=== PATIENT | male | born 1970 | race Caucasian/White ===

== ENCOUNTER → 2017-08-25 12:34 | Outpatient (CLI) | payer OTHER, SELFPAY ==
--- NOTE | 2017-08-25 | DI.CT.S_ITS ---
PROCEDURE: CT CHEST WO CON INDICATIONS: PERSONAL HISTORY OF MALIGNANT NEOPLASM OF TESTIS TECHNIQUE: Noncontrast 5 mm thick sections acquired from the pulmonary apices to the posterior costophrenic angles. 7 mm thick coronal and sagittal MIP reformats were then acquired. For radiation dose reduction, the following was used: automated exposure control, adjustment of mA and/or kV according to patient size. COMPARISON: [facility], CT, THORAX WITHOUT CONTRAST, 02/12/2017, 12:41. FINDINGS: Image quality: Excellent. Lungs and pleura: No acute consolidation. There is bibasilar scattered atelectasis. No pleural effusions or pneumothorax. Central and peripheral airways are patent and normal in caliber. Mediastinum: Heart size is normal. No pericardial effusion. No mediastinal adenopathy by size criteria. Thoracic aorta and central pulmonary arteries are normal in size. Esophagus is normal in caliber. No hiatal hernia. Bones and chest wall: No suspicious bony lesions. No vertebral body compression fractures. No axillary or supraclavicular adenopathy by size criteria. Thyroid gland negative. Abdomen: Visualized upper abdominal solid organs and bowel loops appear normal in the absence of contrast. IMPRESSION: No evidence of metastatic disease. Dictated by: Harsh Brice M.D. on 08/25/2017 at 14:03 Approved by: Harsh Brice M.D. on 08/25/2017 at 14:14
--- NOTE | 2017-08-25 | DI.MRI.S_ITS ---
PROCEDURE: MR ABDOME PELVIS WWO CON INDICATIONS: PERSONAL HISTORY OF MALIGNANT NEOPLASM OF TESTIS TECHNIQUE: Coronal HASTE, axial 2D FLASH in- and [id number]; axial breath-hold T2 FSE; dynamic axial VIBE during IV gadolinium administration; postgadolinium coronal VIBE or 2D FLASH with fat saturation from the hepatic dome to the iliac crests. COMPARISON: [facility], MR, ABDOMEN & PELVIS WWO CONTRAST, 10/30/2015, 15:24. [facility], MR, ABDOMEN & PELVIS WWO CONTRAST, 07/29/2016, 8:36. [facility], CT, CT CHEST WO CON, 08/25/2017, 12:53. [facility], MR, ABDOMEN & PELVIS WWO CONTRAST, 02/12/2017, 13:01. FINDINGS: Image quality: Excellent. Lung bases: The basal pleural effusions. Heart is normal in size. Solid organs: Liver demonstrates no focal hepatic lesions. The gallbladder is within normal limits without gallstones. No biliary ductal dilatation. The spleen is normal in size. The pancreas is normal in morphology without pancreatic duct dilatation or discrete mass lesions. No adrenal nodules. The kidneys demonstrate no hydronephrosis. Nodes and vessels: There are small foci of magnetic susceptibility artifact redemonstrated in the retroperitoneum consistent with prior lymph node dissection. A small ovoid fluid collection in the retroperitoneum between the aorta and inferior vena cava is stable in appearance compared to the prior studies measuring up to 1.3 x 0.7 cm and likely represents a small lymphocele. No mesenteric or retroperitoneal lymphadenopathy by size criteria. The aorta and inferior vena cava are normal in caliber. Bowel and peritoneum: Small and large bowel loops appear normal in caliber. No intraperitoneal free fluid. Pelvis: No pelvic lymphadenopathy by size criteria. The bladder demonstrates normal wall thickness. No pelvic free fluid. Bones and soft tissues: Visualized osseous structures demonstrate no suspicious focal lesions. IMPRESSION: 1. No evidence of new recurrent or metastatic disease. 2. Small retroperitoneal fluid collection likely representing a lymphocele is stable in appearance. Dictated by: Ezekiel Rice M.D. on 08/26/2017 at 9:44 Approved by: Ezekiel Rice M.D. on 08/26/2017 at 9:59
== END ==
PROVIDERS: PCP Family Medicine; Visit Provider Family Medicine
DX: Z85.47 Personal history of malignant neoplasm of testis (principal)
CPT/HCPCS: 71250; 72197

== ENCOUNTER 2017-10-17 13:13 | Emergency (ER) | payer OTHER, SELFPAY ==
[2017-10-17 13:26] VITALS: BP 137/86; PULSE 96; RESP 15; TEMP 36.2; O2SAT 98; BMI 28.1
[2017-10-17 15:07] VITALS: BP 117/75; PULSE 81; RESP 14; O2SAT 95
--- NOTE | 2017-10-17 15:15 | DI.US.S_ITS ---
PROCEDURE: US PERIPH VENOUS LOW EXTREM LT INDICATIONS: pain hx of pe and cancer TECHNIQUE: Real-time imaging, as well as color and pulse Doppler interrogation, were performed of the lower extremity deep veins from the inguinal ligament to the popliteal fossa. COMPARISON: None. FINDINGS: The deep veins are normally compressible, and free of intraluminal thrombus. Color and pulse Doppler demonstrate normal phasic intraluminal flow. There is normal augmentation response to distal compression maneuver. IMPRESSION: No evidence of left lower extremity deep vein thrombosis. Dictated by: Lemuel Valdez M.D. on 10/17/2017 at 16:08 Approved by: Lemuel Valdez M.D. on 10/17/2017 at 16:26
--- NOTE | 2017-10-17 15:21 | ED_ITS ---
HPI - Extremity Problem General Chief complaint: Extremity Problem,Nontraumatic Stated complaint: DULL ACHE IN LEFT CALF RADIATING INTO HAMSTRING Time Seen by Provider: 10/17/17 15:06 Source: patient Mode of arrival: ambulatory Limitations: no limitations History of Present Illness HPI Narrative: Patient is a 47-year-old male who presents with left calf pain. He has not noted any swelling it does hurt when he walks. He has been relatively active. He does have a history of pulmonary embolism and cancer. 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 No recent travel, no immobilization, no chest pain no shortness of breath. MD Complaint: extremity pain Onset (ago): week(s) (1) Location: left Related Data Home Medications Medication Instructions Recorded Confirmed doxycycline hyclate 50 mg PO DAILY 10/17/17 10/17/17 Previous Rx's Medication Instructions Recorded metronidazole [Metrogel Vaginal] 1 appl VAGINAL HS #70 gm 06/11/17 Allergies Allergy/AdvReac Type Severity Reaction Status Date / Time ampicillin [AMPICILLIN] Allergy Mild Verified 10/17/17 13:26 Penicillins [PENICILLINS] Allergy Mild Verified 10/17/17 13:26 Review of Systems Review of Systems GENERAL: Denies chills,fever HEENT: Denies throat pain RESPIRATORY: Denies dyspnea, cough, wheezing CARDIOVASCULAR: Denies chest pain, palpitations GASTROINTESTINAL: Denies nausea, vomiting MUSCULOSKELETAL: Denies extremity pain, injury SKIN: No rash, no laceration, no pruritus NEUROLOGIC: Denies weakness, dizziness, headache, numbness 8 point review of systems is negative except for those stated above and HPI All systems reviewed & are unremarkable except as noted in HPI and below PFSH Surgical History History of vasectomy Family History Father Age: 75 Mental health problem Mother Age: 74 Hypertension Mental health problem Exam Initial Vital Signs Initial Vital Signs: Vital Signs Temperature 97.2 F L 10/17/17 13:26 Pulse Rate 96 H 10/17/17 13:26 Respiratory Rate 15 10/17/17 13:26 Blood Pressure 137/86 H 10/17/17 13:26 Pulse Oximetry 98 10/17/17 13:26 GENERAL: Well-appearing, well-nourished and in no acute distress. HEENT: Head atraumatic,EOMI, pupils reactive, face symmetric, moist mucous membranes CARDIOVASCULAR: Regular rate and rhythm without murmurs, rubs or gallops. RESPIRATORY: Breath sounds equal bilaterally, no wheezes rales or rhonchi. ABDOMEN: Soft, nontender. Normoactive bowel sounds all 4 quadrants. No guarding or rebound. EXTREMITIES: Normal range of motion, no clubbing or edema. Neurovascularly intact. Mild tenderness to right calf no guarding no rebound no significant swelling no erythema pedal pulse intact NEUROLOGICAL: Alert and oriented x4.Normal gait and speech. SKIN: Warm, dry, no laceration, no petechiae, no rashes or lesions. Course Orders Ordered: ED Orders 10/17/17 15:15 US perip venous low extrem lt Stat Vital Signs - 8 hr 10/17/17 13:26 10/17/17 15:07 Temperature 97.2 F L Pulse Rate 96 H 81 Respiratory Rate 15 14 Blood Pressure 137/86 H Blood Pressure [Right Arm] 117/75 Pulse Oximetry 98 95 MDM - Extremity (Nontraumatic) Imaging Data Venous US: Radiologist's impression: PROCEDURE: US [facility] VENOUS LOW EXTREM LT INDICATIONS: pain hx of pe and cancer TECHNIQUE: Real-time imaging, as well as color and pulse Doppler interrogation, were performed of the lower extremity deep veins from the inguinal ligament to the popliteal fossa. COMPARISON: None. FINDINGS: The deep veins are normally compressible, and free of intraluminal thrombus. Color and pulse Doppler demonstrate normal phasic intraluminal flow. There is normal augmentation response to distal compression maneuver. IMPRESSION: No evidence of left lower extremity deep vein thrombosis. Dictated by: Lemuel Valdez M.D. on 10/17/2017 at 16:08 Discharge Plan Departure Patient Disposition: Home, Self-Care Clinical Impression: Strain of calf muscle Discharge Date/Time: 10/17/17 17:03 Interventions: ED Discharge Assessment Last Done: 10/17/17 17:11 Instructions: Calf Muscle Strain Activity Restrictions/Additional Instructions: *You have been diagnosed with left calf strain *Continue to take medications as directed *Follow up with your primary care provider in 2-3 days *Return to ER if you should have any new, worsening or concerning symptoms Prescriptions: No Action metronidazole [Metrogel Vaginal] 0.75 % gel 1 appl Vaginal HS Qty: 70 RF: 0 doxycycline hyclate 50 mg capsule 50 mg PO DAILY RF: 0 Referrals: Cousins,Shaina, MD [Primary Care Provider] -
== END 2017-10-17 17:03 | disposition home or self-care (01) ==
PROVIDERS: Emergency Provider Emergency Medicine; PCP Family Medicine
DX: S86.912A Strain of unspecified muscle(s) and tendon(s) at lower leg level, left leg, initial encounter (principal)
CPT/HCPCS: 93971; 99282; 99284

== ENCOUNTER → 2018-01-13 15:00 | Outpatient (CLI) | payer OTHER, SELFPAY | PROVIDERS: PCP Family Medicine | DX: Z23 Encounter for immunization (principal) | CPT/HCPCS: 90471; 90686 ==

== ENCOUNTER → 2018-07-07 15:22 | Outpatient (CLI) | payer OTHER, SELFPAY | PROVIDERS: Visit Provider Physician Assistant | DX: R68.89 Other general symptoms and signs (principal) | CPT/HCPCS: 87400 ==

== ENCOUNTER → 2018-07-13 11:49 | Outpatient (CLI) | payer OTHER, SELFPAY ==
--- NOTE | 2018-07-13 11:52 | DI.RAD.S_ITS ---
PROCEDURE: XR CHEST 2V INDICATIONS: cough TECHNIQUE: 2 views of the chest were acquired. COMPARISON: [facility], , CHEST 1 VIEW, 01/10/2016, 9:57. FINDINGS: Surgical changes and devices: None. Lungs and pleura: Lungs are clear. No pleural effusions or pneumothorax. Mediastinum: Mediastinal contours are normal. Heart size is normal. Bones and chest wall: No suspicious bony abnormalities. Soft tissues appear unremarkable. IMPRESSION: Stable chest. No acute cardiopulmonary process is evident. Dictated by: Lemuel Valdez M.D. on 07/13/2018 at 11:02 Approved by: Lemuel Valdez M.D. on 07/13/2018 at 11:03
== END ==
PROVIDERS: Visit Provider Physician Assistant
DX: R05 Cough (principal)
CPT/HCPCS: 71046

== ENCOUNTER → 2018-09-08 09:02 | Outpatient (CLI) | payer OTHER, SELFPAY ==
[2018-09-08 10:45] LABS: Alanine Aminotransferase 26 IU/L (21-72); Albumin 4.6 g/dL (3.5-5.0); Albumin Globulin Ratio 1.4 (1.0-2.8); Alkaline Phosphatase 64 U/L (38-126); Aspartate Aminotransferase 26 IU/L (17-59); Bilirubin Total 0.8 mg/dL (0.2-1.3); Blood Urea Nitrogen 20 mg/dL (9-20); Calcium 9.6 mg/dL (8.4-10.2); Carbon Dioxide 27 mmol/L (22-32); Chloride 103 mmol/L (98-107); Cholesterol 298 mg/dL (140-199); Estimated Glomerular Filt Rate > 60.0 mL/min (>60); Globulin 3.2 g/dL (1.7-4.1); Glucose 100 mg/dL (70-100); HDL Cholesterol 35 mg/dL (40-60); HEMOLYSIS 22 (0-50); Sodium 140 mmol/L (137-145); Total Protein 7.8 g/dL (6.3-8.2)
[2018-09-08 10:54] LABS: Triglycerides 770 mg/dL (35-150)
[2018-09-08 11:00] LABS: Vitamin D 25 Hydroxy (D3) 17.6 ng/mL (30.0-100.0)
[2018-09-08 11:14] LABS: TSH w/ Reflex to FT4 2.01 uIU/mL (0.47-4.68)
[2018-09-12 00:10] LABS: Testosterone Free 53.2 pg/mL (35.0-155.0); Testosterone Total 405 ng/dL (250-1100)
== END ==
PROVIDERS: Visit Provider Student in an Organized Health Care Education/Training Program
DX: C62.90 Malignant neoplasm of unspecified testis, unspecified whether descended or undescended (principal); N20.0 Calculus of kidney; N52.9 Male erectile dysfunction, unspecified; E78.2 Mixed hyperlipidemia; E55.9 Vitamin D deficiency, unspecified; Z92.21 Personal history of antineoplastic chemotherapy
CPT/HCPCS: 36415; 80053; 80061; 82306; 84402; 84403; 84443

== ENCOUNTER → 2018-09-18 10:34 | Outpatient (CLI) | payer OTHER, SELFPAY ==
--- NOTE | 2018-09-18 10:39 | DI.MRI.S_ITS ---
PROCEDURE: MR ABDOME PELVIS WWO CON INDICATIONS: routine surveillance of testicular ca metastasis TECHNIQUE: Coronal HASTE, axial 2D FLASH in- and [id number]; axial breath-hold T2 FSE; dynamic axial VIBE during IV gadolinium administration; postgadolinium coronal VIBE or 2D FLASH with fat saturation from the hepatic dome to the iliac crests. COMPARISON: [facility], MR, MR ABDOMEN PELVIS WWO CON, 08/25/2017, 13:31. [facility], MR, ABDOMEN & PELVIS WWO CONTRAST, 02/12/2017, 13:01. FINDINGS: Image quality: Excellent. Lung bases: Clear. Solid organs: No evidence of metastatic disease, no inflammation seen. Nodes and vessels: Normal in size, no evidence of retroperitoneal or mesenteric adenopathy. Bowel and peritoneum: Normal for age. Pelvis: No sign of adenopathy or osseous metastatic disease. Bones and soft tissues: Normal. IMPRESSION: No sign of metastatic disease to the visualized chest, abdomen and pelvis. Dictated by: Thony Jackson M.D. on 09/18/2018 at 15:32 Approved by: Thony Jackson M.D. on 09/18/2018 at 15:36
--- NOTE | 2018-09-18 11:04 | DI.CT.S_ITS ---
PROCEDURE: CT CHEST WO CON INDICATIONS: Routine surveillance of chest metastasis TECHNIQUE: Noncontrast 5 mm thick sections acquired from the pulmonary apices to the posterior costophrenic angles. 7 mm thick coronal and sagittal MIP reformats were then acquired. For radiation dose reduction, the following was used: automated exposure control, adjustment of mA and/or kV according to patient size. COMPARISON: [facility], CT, THORAX WITHOUT CONTRAST, 02/12/2017, 12:41. [facility], CT, THORAX WITHOUT CONTRAST, 07/29/2016, 8:11. [facility], CT, THORAX WITHOUT CONTRAST, 10/30/2015, 14:42. [facility], CT, CT CHEST WO CON, 08/25/2017, 12:53. FINDINGS: Image quality: Excellent. Lungs and pleura: No acute air space opacities. No metastatic disease is found. There are several small foci of alveolar scarring previously present, stable over time, and no evidence of acute inflammatory process. No pleural effusions or pneumothorax. Central and peripheral airways are patent and normal in caliber. Mediastinum: Heart size is normal. No pericardial effusion. No mediastinal adenopathy by size criteria. Thoracic aorta and central pulmonary arteries are normal in size. Esophagus is normal in caliber. No hiatal hernia. Bones and chest wall: No suspicious bony lesions. No vertebral body compression fractures. No axillary or supraclavicular adenopathy by size criteria. Thyroid gland appears normal where well visualized by this noncontrast technique study.. Abdomen: Visualized upper abdominal solid organs and bowel loops appear normal in the absence of contrast. IMPRESSION: No evidence of metastatic disease. Minimal stable lung parenchymal scarring in each lung base. No adenopathy found. Dictated by: Thony Jackson M.D. on 09/18/2018 at 12:40 Approved by: Thony Jackson M.D. on 09/18/2018 at 12:43
== END ==
PROVIDERS: PCP Student in an Organized Health Care Education/Training Program; Visit Provider Student in an Organized Health Care Education/Training Program
DX: C62.90 Malignant neoplasm of unspecified testis, unspecified whether descended or undescended (principal)
CPT/HCPCS: 71250; 72197; A9579

== ENCOUNTER → 2018-09-22 15:48 | Outpatient (CLI) | payer OTHER, SELFPAY ==
--- NOTE | 2018-09-22 15:49 | DI.ECHO.S_ITS ---
[place] [facility]---------+ [facility] +---------+ : : [address] : [address] : : : : [id number] : : : : Phone: [phone]+ Echocardiogram Report + + :Name: ERNESTINE HOLT Study Date: 09/22/2018 Height: 66 in : :[facility] Exam Location: IS Weight: 185 lb : : Gender: Male BSA: 1.9 m2 : :: 1970 Age: 48 yrs BP: 118/85 mmHg: :Reason For Study: History of chemotherapy : : Performed By: Pushpa Page : :Referring: MIKE LLANES : + + Interpretation Summary The left ventricle is normal in size. Left ventricular systolic function is normal without focal wall motion abnormalities. The ejection fraction is estimated to be 55-60%. Diastolic parameters suggest a relaxation abnormality of the left ventricle, consistent with probable normal filling pressures. The right ventricle is normal in size and function. Pulmonary artery pressures cannot be estimated because of the lack of a measurable TR jet velocity. Both atria are normal in size. The mitral valve is normal in structure and function. There is no significant valvular heart disease. The ascending aorta is mildly enlarged. Procedure: A two-dimensional transthoracic echocardiogram with color flow and Doppler was performed. The study quality was technically adequate. There is no prior echocardiogram noted for this patient. The patient was in normal sinus rhythm during the exam. Left Ventricle: The left ventricle is normal in size. There is normal left ventricular wall thickness. Left ventricular systolic function is normal without focal wall motion abnormalities. The ejection fraction is estimated to be 55-60%. Diastolic parameters suggest a relaxation abnormality of the left ventricle, consistent with probable normal filling pressures. Right Ventricle: The right ventricle is normal in size and function. Atria: Both atria are normal in size. There is no Doppler evidence for an interatrial shunt. Mitral Valve: The mitral valve is normal in structure and function. There is trace mitral regurgitation. Aortic Valve: The aortic valve is trileaflet. The aortic valve opens well. No aortic regurgitation is present. Tricuspid Valve: The tricuspid valve is normal in structure and function. There is a trace or physiologic amount of tricuspid regurgitation. Pulmonary artery pressures cannot be estimated because of the lack of a measurable TR jet velocity. Pulmonic Valve: The pulmonic valve is not well seen, but is grossly normal. There is a trace or physiologic amount of pulmonic regurgitation. There is no significant valvular heart disease. Great Vessels: The aortic root is normal size. The ascending aorta is mildly enlarged. The pulmonary artery is normal size. The IVC is of normal diameter and collapses greater than 50% with a sniff. This suggests a low right atrial pressure of 3 mm Hg. Pericardium/ Pleura There is no pericardial effusion. There is no pleural effusion. MMode/2D Measurements & Calculations LVIDd: 3.9 cm LVOT diam: 2.2 cm LVIDs: 2.4 cm Ao root diam: 3.8 cm FS: 37.9 % asc Aorta Diam: 3.7 cm EPSS: 0.23 cm IVSd: 0.74 cm LVPWd: 0.68 cm LV kelly. diameter/BSA (cm/m^2): 2.0 LV sys. diameter/BSA (cm/m^2): 1.2 LA A2 area: 19.6 cm2 RA long axis: 4.9 cm LA A4 area: 18.1 cm2 RA area: 13.2 cm2 LA length (vol): 5.3 cm RA vol: 30.2 ml LA vol: 56.8 ml RA : 15.6 ml/m2 LA vol index: 29.4 ml/m2 IVC diam: 2.0 cm RVD1 (basal): 3.7 cm RVD2 (mid): 3.9 cm TAPSE: 2.5 cm Doppler Measurements & Calculations Ao V2 max: 97.4 cm/sec LVOT Max Wilfredo: 74.6 cm/sec Ao V2 mean: 69.6 cm/sec LV V1 max P.2 mmHg Ao max P.8 mmHg LV V1 VTI: 14.4 cm Ao mean P.1 mmHg SANDRO(I,D): 3.0 cm2 Ao V2 VTI: 18.1 cm SANDRO(V,D): 2.9 cm2 sev ratio: 0.80 SANDRO indexed to BSA (cm^2/m^2): 1.5 MV E max wilfredo: 52.7 cm/sec PA V2 max: 85.9 cm/sec MV A max wilfredo: 68.1 cm/sec PA V2 mean: 64.1 cm/sec MV E/A: 0.77 PA mean P.8 mmHg Med Peak E' Wilfredo: 4.7 cm/sec PA Accel Time: 0.12 sec E/E' med: 11.1 Lat Peak E' Wilfredo: 6.8 cm/sec E/E' lat: 7.7 E/e' average: 9.4 MV dec time: 0.25 sec MV P1/2t: 75.3 msec MV P1/2t max wilfredo: 53.5 cm/sec SV(LVOT): 53.8 ml MVA(2t): 2.9 cm2 Reading Physician:05:46 PM
== END ==
PROVIDERS: PCP Student in an Organized Health Care Education/Training Program; Visit Provider Student in an Organized Health Care Education/Training Program
DX: I77.89 Other specified disorders of arteries and arterioles (principal); Z92.21 Personal history of antineoplastic chemotherapy; Z86.711 Personal history of pulmonary embolism
CPT/HCPCS: 93306

== ENCOUNTER → 2018-11-06 08:41 | Outpatient (CLI) | payer OTHER, SELFPAY ==
[2018-11-06 09:19] LABS: Cholesterol 194 mg/dL (140-199); HDL Cholesterol 38 mg/dL (40-60); LDL Cholesterol Calculated 94 mg/dL (<100); Triglycerides 310 mg/dL (35-150)
== END ==
PROVIDERS: PCP Student in an Organized Health Care Education/Training Program; Visit Provider Student in an Organized Health Care Education/Training Program
DX: E78.2 Mixed hyperlipidemia (principal)
CPT/HCPCS: 36415; 80061

== ENCOUNTER → 2019-01-12 13:15 | Outpatient (CLI) | payer OTHER, SELFPAY | PROVIDERS: PCP Student in an Organized Health Care Education/Training Program | DX: Z23 Encounter for immunization (principal) | CPT/HCPCS: 90471; 90686 ==

== ENCOUNTER 2019-05-02 13:30 | Emergency (ER) | payer OTHER, SELFPAY ==
[2019-05-02 13:34] VITALS: BP 120/70; PULSE 93; RESP 20; TEMP 36.6; O2SAT 97; BMI 29.0
--- NOTE | 2019-05-02 13:38 | DI.RAD.S_ITS ---
PROCEDURE: XR CHEST 2V INDICATIONS: cough/fatigue TECHNIQUE: 2 views of the chest were acquired. COMPARISON: [facility], CT, CT CHEST WO CON, 09/18/2018, 10:46. [facility], CR, XR CHEST 2V, 07/13/2018, 11:55. FINDINGS: Surgical changes and devices: None. Lungs and pleura: Lungs are clear. No pleural effusions or pneumothorax. Mediastinum: Mediastinal contours are normal. Heart size is normal. Bones and chest wall: No suspicious bony abnormalities. Soft tissues appear unremarkable. IMPRESSION: Negative chest. No acute cardiopulmonary process is evident. Dictated by: Lemuel Valdez M.D. on 05/02/2019 at 12:55 Approved by: Lemuel Valdez M.D. on 05/02/2019 at 12:56
--- NOTE | 2019-05-02 17:41 | ED_ITS ---
HPI - URI/Sore Throat <Marylu Cameron, FOSTER WINDER-BC - Last Filed: 05/02/19 20:19> General Chief Complaint: Upper Respiratory Symptoms Stated Complaint: cold like symptoms, eye infection Time Seen by Provider: 05/02/19 14:40 Source: patient Mode of arrival: Ambulatory Limitations: no limitations History of Present Illness HPI Narrative: The patient is a 48-year-old male nonsmoker with history of t esticular cancer who presents with a chief complaint of cold-like symptoms for approximately 10 days. He states he has had cough and congestion, is concerned about pneumonia. He states he has been using [id number]-[id number]-[id number] Robitussin that has been helping with his cough. He denies any fevers nausea vomiting or diarrhea. The patient does state that he developed eye redness and drainage with crusting yesterday. He denies any visual deficit. He states it is hard to tell because he presents wearing 1 contact lens in the unaffected eye. He states that his vision is normal for him without contact lenses. He complains of some sore throat that is improving, denies double vision, abnormal blurry vision,haloing of lights. He denies any foreign body sensation in his eye. He denies any ocular trauma. Denies any eye pain or pain on EOMs, rather complains of a stinging sensation on the surface of his eyeball. The patient is an [employer] employee, and this has been exposed to multiple illnesses recently. He has removed his contact from the affected eye. Primary care provider is Dr. Tamez Related Data Home Medications Medication Instructions Recorded Confirmed doxycycline hyclate 50 mg PO DAILY 10/17/17 07/13/18 aspirin 81 mg chewable tablet 81 mg PO DAILY 09/10/18 Previous Rx's Medication Instructions Recorded albuterol sulfate 90 mcg/actuation 1 puff INHALATION Q4-6H PRN #8 gram 07/13/18 aerosol inhaler fenofibrate 50 mg capsule 50 mg PO DAILY #90 cap 01/05/19 sildenafil (pulm.hypertension) 20 20 mg PO ONCE PRN #30 tab 01/05/19 mg tablet ciprofloxacin HCl 2 drop EYE-RIGHT .4xday 7 Days #10 05/02/19 ml Allergies Allergy/AdvReac Type Severity Reaction Status Date / Time ampicillin [AMPICILLIN] Allergy Mild Hives Verified 07/07/18 15:31 Penicillins [PENICILLINS] Allergy Mild Hives Verified 07/07/18 15:31 Review of Systems <MATEO Hu - Last Filed: 05/02/19 20:19> Review of Systems Narrative: GENERAL: See HPI HEENT: Denies sinus pain, ear pain, sore throat, difficulty swallowing, dizziness. RESPIRATORY: See HPI CARDIOVASCULAR: Denies chest pain, palpitations, orthopnea, edema, GASTROINTESTINAL: Seek HPI : Denies dysuria, frequency, incontinence, hematuria, urinary retention. MUSCULOSKELETAL: denies weakness, joint pain, or bony pain SKIN: Denies rash, skin lesions, or other NEUROLOGIC: Denies weakness, headache, numbness, change in speech, confusion, seizures, incoordination. PSYCHIATRIC: No concerning psychosocial issues. 12 point review of systems is negative except for those stated above Patient History <MATEO Hu - Last Filed: 05/02/19 20:19> Medical History Chicken pox (Resolved ~1974) Hyperlipidemia (Chronic) Hypertriglyceridemia (Chronic) Low testosterone (Chronic) Mumps (Resolved ~1974) Pulmonary embolism (Chronic ~1988) Rosacea (Chronic ~2011) Testicular cancer (Chronic ~1988) Surgical History Anesthesia (Resolved) History of orchiectomy (Resolved ~1988) History of surgery (Resolved ~1988) History of vasectomy (Resolved ~2014) Family History Father Age: 76 Mental health problem Mother Age: 75 Hypertension Mental health problem Social History Smoking Status: Never smoker Smoking Status: Never smoker Exam <MATEO Hu - Last Filed: 05/02/19 20:19> Narrative Exam Narrative: GENERAL: This is a well-nourished, well-developed patient, in no acute distress HEAD: Atraumatic. Normocephalic. No temporal or scalp tenderness. EYES: Pupils equal round and reactive. Extraocular motions intact. No scleral icterus. Right eye with injection, purulent drainage, no pain on EOMs. ENT: Nose without bleeding, purulent drainage or septal hematoma. Throat without erythema, tonsillar hypertrophy or exudate. Uvula midline. Airway patent. NECK: Trachea midline. No JVD or lymphadenopathy. Supple, nontender, no meningeal signs. CARDIOVASCULAR: Regular rate and rhythm. RESPIRATORY: Clear to auscultation. Breath sounds equal bilaterally. No wheezes, rales, or rhonchi. Occasional dry cough. No increased respiratory effort. No accessory muscle use. Speaking full sentences. GASTROINTESTINAL: Abdomen soft, non-tender, nondistended. No hepato- splenomegaly, or palpable masses. No guarding. EXTREMITIES: No clubbing, cyanosis, or edema. No joint tenderness, effusion, or edema noted. BACK: Nontender without deformity or crepitance. No flank tenderness. NEURO: AOx3. SKIN: No rash or erythema on visible skin. No surrounding erythema for right eye. Initial Vital Signs Initial Vital Signs: Vital Signs Temperature 97.8 F 05/02/19 13:34 Pulse Rate 93 H 05/02/19 13:34 Respiratory Rate 05/02/19 13:34 Blood Pressure 120/70 05/02/19 13:34 Pulse Oximetry 97 05/02/19 13:34 <Sandra Turner MD - Last Filed: 05/02/19 20:20> Initial Vital Signs Initial Vital Signs: Vital Signs Temperature 97.8 F 05/02/19 13:34 Pulse Rate 93 H 05/02/19 13:34 Respiratory Rate 20 05/02/19 13:34 Blood Pressure 120/70 05/02/19 13:34 Pulse Oximetry 97 05/02/19 13:34 Scores <MATEO Hu - Last Filed: 05/02/19 20:19> GCS Tracee coma scale eye opening: Spontaneous Free [place]il coma scale verbal response: Orientated Tracee coma scale motor response: Obey commands Tracee coma scale total score: 15 Course <MATEO Hu - Last Filed: 05/02/19 20:19> Orders Ordered: ED Orders 05/02/19 13:38 Chest [XR chest 2V] Stat Vital Signs Vital signs: Vital Signs - 8 hr 05/02/19 13:34 Temperature 97.8 F Pulse Rate 93 H Respiratory Rate 20 Blood Pressure 120/70 Pulse Oximetry 97 <Sandra Turner MD - Last Filed: 05/02/19 20:20> Orders Ordered: ED Orders 05/02/19 13:38 Chest [XR chest 2V] Stat Vital Signs Vital signs: Vital Signs - 8 hr 05/02/19 13:34 Temperature 97.8 F Pulse Rate 93 H Respiratory Rate 20 Blood Pressure 120/70 Pulse Oximetry 97 MDM - URI/Sore Throat <MATEO Hu - Last Filed: 05/02/19 20:19> Imaging Data Chest x-ray: Radiologist's Impression: [address] [address] XRay Report Signed Patient: Geo Barlow MMR#: [id number] : 1970Acct:[id number] Age/Sex: 48 / MDate of Service: 05/02/19 Loc: ED Accession Number: [id number] Procedure: XR chest 2V Ordering Provider: Sandra Turner MD PROCEDURE: XR CHEST 2V INDICATIONS: cough/fatigue TECHNIQUE: 2 views of the chest were acquired. COMPARISON: [facility], CT, CT CHEST WO CON, 09/18/2018, 10:46. [facility], CR, XR CHEST 2V, 07/13/2018, 11:55. FINDINGS: Surgical changes and devices: None. Lungs and pleura: Lungs are clear. No pleural effusions or pneumothorax. Mediastinum: Mediastinal contours are normal. Heart size is normal. Bones and chest wall: No suspicious bony abnormalities. Soft tissues appear unremarkable. IMPRESSION: Negative chest. No acute cardiopulmonary process is evident. Dictated by: Lemuel Valdez M.D. on 05/02/2019 at 12:55 Approved by: Lemuel Valdez M.D. on 05/02/2019 at 12:56 [facility] Narrative Medical decision making narrative: The patient is a 48-year-old male who presents with a chief complaint of cough and congestion symptoms for approximately 10 days as well as a red and draining eye. Exam indicates a bacterial conjunctivitis, given that he does wear contacts, who will initiate treatment with Cipro drops. Discussed the possibility of doing a fluorescein exam, however treatment would remain antibiotic drops if a abrasion was noted. He states he has had abrasions the past this does not feel like one. The patient did drive here of note and does not have a ride home, so we elected to hold off on fluorescein exam for now. He denies any acute visual changes and has no pain on EOMs. Patient's chest x-ray came back with no pneumonia. I believe he likely has a viral bronchitis at this point time is he has no fevers or signs of systemic illness. I did offer him cough suppressants, which he declined at this point time. I discussed that he should follow up with primary care provider in the next few days if no improvement or worsening. Discussed return precautions including shortness of breath, acute concerns, visual changes and coming back to the emergency department for any acute concerns. Patient does work with other people in given how communicable conjunctivitis is, I did give him a work note for several days. Patient has no questions or concerns upon discharge and states understanding of return precautions as well as follow- up care. Discharge Plan Departure Patient Disposition: Home Clinical Impression: Upper respiratory infection Qualifiers: URI type: unspecified viral URI Qualified Code(s): J06.9 - Acute upper respiratory infection, unspecified Conjunctivitis Qualifiers: Conjunctivitis type: acute Acute conjunctivitis type: bacterial Laterality: right Qualified Code(s): H10.31 - Unspecified acute conjunctivitis, right eye Discharge Date/Time: 05/02/19 15:38 Instructions: Conjunctivitis (Alternative Therapy), DI for Cough -- Adult, DI for Conjunctivitis, DI for Viral Upper Respiratory Infection -- Adult Activity Restrictions/Additional Instructions: Today your x-ray shows no signs of pneumonia, however you do show bacterial conjunctivitis DRISS carrizales I have sent a prescription of antibiotic drops to [facility] Please be careful to wash your hands at home. I recommend using your glasses instead of 1 contact lens. Please monitor for any decreased vision, eye pain in the back of your eye cetera. Please follow-up with primary care provider in the next few days. If you have any acute concerns such as vision concerns, chest pain, shortness of breath, please come back to the emergency department. Given how contagious conjunctivitis is, I've given you a work note for few days Prescriptions: New ciprofloxacin HCl 0.3 % drops 2 drop EYE-RIGHT .4xday 7 Days Qty: 10 RF: 0 No Action albuterol sulfate 90 mcg/actuation HFA aerosol inhaler 1 puff INHALATION Q4-6H PRN (Reason: shortness of breath or wheezing) Qty: 8 RF: 1 aspirin 81 mg tablet,chewable 81 mg PO DAILY RF: 0 fenofibrate 50 mg capsule 50 mg PO DAILY Qty: 90 RF: 1 sildenafil (pulm.hypertension) 20 mg tablet 20 mg PO ONCE PRN (Reason: sexual activity) Qty: 30 RF: 5 doxycycline hyclate 50 mg capsule 50 mg PO DAILY RF: 0 Referrals: Khanh Tamez MD [Primary Care Provider] - Stand Alone Forms: Work Release Note
== END 2019-05-02 15:38 | disposition home or self-care (01) ==
PROVIDERS: Emergency Provider Nurse Practitioner Family; PCP Student in an Organized Health Care Education/Training Program
DX: J06.9 Acute upper respiratory infection, unspecified (principal); H10.31 Unspecified acute conjunctivitis, right eye
CPT/HCPCS: 71046; 99281; 99283

== ENCOUNTER → 2019-10-26 17:06 | Outpatient (CLI) | payer OTHER, SELFPAY ==
[2019-10-27 20:36] LABS: COVID19 Sendout Not Detected (Not Detect)
== END ==
PROVIDERS: PCP Student in an Organized Health Care Education/Training Program; Visit Provider Physician Assistant
DX: Z03.818 Encounter for observation for suspected exposure to other biological agents ruled out (principal)
CPT/HCPCS: 87635

== ENCOUNTER → 2019-11-24 12:02 | Outpatient (CLI) | payer OTHER, SELFPAY ==
--- NOTE | 2019-11-24 12:04 | DI.MRI.S_ITS ---
PROCEDURE: MR ABDOME PELVIS WWO CON INDICATIONS: F/U soft tissue cancer 2016 TECHNIQUE: Coronal HASTE, axial 2D FLASH in- and [id number]; axial breath-hold T2 FSE; dynamic axial VIBE during IV gadolinium administration; postgadolinium coronal VIBE or 2D FLASH with fat saturation from the hepatic dome to the iliac crests. COMPARISON: [facility], MR, MR ABDOMEN PELVIS WWO CON, 09/18/2018, 11:10. [facility], MR, MR ABDOMEN PELVIS WWO CON, 08/25/2017, 13:31. FINDINGS: Image quality: Excellent. Lung bases: Normal Solid organs: Normal, as is the gallbladder. Nodes and vessels: No adenopathy is identified. No evidence of aneurysm or dissection Bowel and peritoneum: Normal. Pelvis: Normal, no evidence of adenopathy. Bones and soft tissues: No evidence of metastatic disease. IMPRESSION: Normal examination through the small portion of the lung bases included on this study and through the abdomen and pelvis. No evidence of recurrent testicular carcinoma. Dictated by: Thony Jackson M.D. on 11/24/2019 at 15:23 Approved by: Thony Jackson M.D. on 11/24/2019 at 15:28
--- NOTE | 2019-11-24 12:24 | DI.CT.S_ITS ---
PROCEDURE: CT CHEST WO CON INDICATIONS: Surveillance soft tissue cancer 2016 TECHNIQUE: Noncontrast 5 mm thick sections acquired from the pulmonary apices to the posterior costophrenic angles. 1 mm lung window, 5 mm thick coronal and sagittal and 7 mm axial MIP reformats were then acquired. For radiation dose reduction, the following was used: automated exposure control, adjustment of mA and/or kV according to patient size. COMPARISON: [facility], CT, CT CHEST WO CON, 09/18/2018, 10:46. FINDINGS: Image quality: Excellent. Lungs and pleura: Mild streaky opacity similar to the prior exam and most compatible with scarring. No pleural effusions or pneumothorax. Central and peripheral airways are patent and normal in caliber. Mediastinum: Heart size is normal. No pericardial effusion. No mediastinal adenopathy by size criteria. Thoracic aorta and central pulmonary arteries are normal in size. Esophagus is normal in caliber. No hiatal hernia. Bones and chest wall: No suspicious bony lesions. No vertebral body compression fractures. No axillary or supraclavicular adenopathy by size criteria. Thyroid gland is unremarkable . Abdomen: Visualized upper abdominal solid organs and bowel loops appear normal in the absence of contrast. Clip adjacent to the IVC is again seen. No retroperitoneal adenopathy visualized. IMPRESSION: No pulmonary nodules to suggest metastatic disease in the chest. No adenopathy seen. Dictated by: Miguel Angel Harley M.D. on 11/24/2019 at 14:08 Approved by: Miguel Angel Harley M.D. on 11/24/2019 at 14:14
== END ==
PROVIDERS: PCP Student in an Organized Health Care Education/Training Program; Referring Provider Student in an Organized Health Care Education/Training Program; Visit Provider Student in an Organized Health Care Education/Training Program
DX: Z08 Encounter for follow-up examination after completed treatment for malignant neoplasm (principal); Z85.831 Personal history of malignant neoplasm of soft tissue; C62.90 Malignant neoplasm of unspecified testis, unspecified whether descended or undescended
CPT/HCPCS: 71250; 72197; A9579

== ENCOUNTER → 2020-01-20 17:33 | Outpatient (CLI) | payer OTHER, SELFPAY | PROVIDERS: PCP Student in an Organized Health Care Education/Training Program; Referring Provider Internal Medicine; Visit Provider Internal Medicine | DX: Z23 Encounter for immunization (principal) | CPT/HCPCS: 90471; 90686 ==

== ENCOUNTER → 2020-04-28 13:44 | Outpatient (CLI) | payer OTHER, SELFPAY ==
[2020-04-28] MEDS: COVID-19 VACC(MODERNA-1)/PF 100 MCG/0.5 ML VIAL IM (13:53)
== END ==
PROVIDERS: PCP Student in an Organized Health Care Education/Training Program; Visit Provider Internal Medicine
DX: Z23 Encounter for immunization (principal)
CPT/HCPCS: 0011A; 91301

== ENCOUNTER → 2020-05-25 15:11 | Outpatient (CLI) | payer OTHER, SELFPAY ==
[2020-05-25] MEDS: COVID-19 VACC #2, MRNA(MOD) 100 MCG/0.5 ML VIAL IM (15:18)
== END ==
PROVIDERS: PCP Student in an Organized Health Care Education/Training Program; Visit Provider Internal Medicine
DX: Z23 Encounter for immunization (principal)
CPT/HCPCS: 0012A; 91301

== ENCOUNTER → 2020-11-22 15:06 | Outpatient (CLI) | payer OTHER, SELFPAY ==
--- NOTE | 2020-11-22 15:07 | DI.MRI.S_ITS ---
PROCEDURE: MR ABDOME PELVIS O CON INDICATIONS: F/U soft tissue cancer 2016 TECHNIQUE: Coronal HASTE, axial 2D FLASH in- and [id number]; axial breath-hold T2 FSE; dynamic axial VIBE during IV gadolinium administration; postgadolinium coronal VIBE or 2D FLASH with fat saturation from the hepatic dome to the iliac crests. COMPARISON: [facility], CT, CT CHEST [facility], 11/22/2020, 15:34. [facility], MR, MR ABDOMEN PELVIS [facility], 11/24/2019, 13:19. [facility], MR, MR ABDOMEN PELVIS O [facility], 09/18/2018, 11:10. FINDINGS: Image quality: Excellent. Lung bases: Normal Solid organs: Normal Nodes and vessels: Normal Bowel and peritoneum: Normal Pelvis: Normal Bones and soft tissues: Normal IMPRESSION: No evidence of recurrent neoplasm. Reported prior testicular carcinoma. Dictated by: Thony Jackson M.D. on 11/23/2020 at 13:32 Approved by: Thony Jackson M.D. on 11/23/2020 at 13:39
--- NOTE | 2020-11-22 15:07 | DI.CT.S_ITS ---
PROCEDURE: CT CHEST WO CON INDICATIONS: F/U soft tissue cancer 2016 TECHNIQUE: Noncontrast 5 mm thick sections acquired from the pulmonary apices to the posterior costophrenic angles. 1 mm lung window, 5 mm thick coronal and sagittal and 7 mm axial MIP reformats were then acquired. For radiation dose reduction, the following was used: automated exposure control, adjustment of mA and/or kV according to patient size. COMPARISON: [facility], CT, CT CHEST WO CON, 11/24/2019, 12:02. FINDINGS: Lungs: Scattered subsegmental atelectasis and/or scarring. No focal consolidation. Airway thickening in keeping with nonspecific bronchitis and/or reactive airways disease. No pulmonary nodules identified. Pleura: No pleural effusion or pneumothorax. Heart: Heart size is normal. No pericardial effusion. Chest nodes: Normal. Thyroid gland: Negative. Aorta: Normal in size. Pulmonary arteries: Normal. Esophagus: Normal. Upper abdomen: No significant findings. Bones: Normal. IMPRESSION: Negative examination. No evidence of active metastatic disease. No pathologically enlarged lymphadenopathy. Airway thickening in keeping with nonspecific bronchitis and/or reactive airways disease. Dictated by: Harsh Brice M.D. on 11/22/2020 at 16:27 Approved by: Harsh Brice M.D. on 11/22/2020 at 16:31
== END ==
PROVIDERS: PCP Student in an Organized Health Care Education/Training Program; Referring Provider Student in an Organized Health Care Education/Training Program; Visit Provider Student in an Organized Health Care Education/Training Program
DX: C62.90 Malignant neoplasm of unspecified testis, unspecified whether descended or undescended (principal); Z85.831 Personal history of malignant neoplasm of soft tissue
CPT/HCPCS: 71250; 72197

== ENCOUNTER → 2021-01-03 09:30 | Outpatient (CLI) | payer OTHER, SELFPAY ==
[2021-01-03 12:09] LABS: COVID19 -Nasal RAPID Negative (Negative)
== END ==
PROVIDERS: PCP Student in an Organized Health Care Education/Training Program; Visit Provider Surgery
DX: Z01.812 Encounter for preprocedural laboratory examination (principal); Z20.822 Contact with and (suspected) exposure to COVID-19
CPT/HCPCS: 87635; C9803

== ENCOUNTER 2021-01-04 14:05 | Day surgery (SDC) | payer OTHER, SELFPAY ==
[2021-01-04] VITALS (7 sets, daily range): BP systolic 101–115; BP diastolic 63–80; PULSE 69–80; RESP 8–16; TEMP 36.8–36.9; O2SAT 93–98; BMI 29.2
--- NOTE | 2021-01-04 | PATH_ITS ---
[facility] Accession Number: [id number] . 01 Material submitted: . rectum - RECTAL POLYPS . 02 Diagnosis: Rectum, Polyps, Biopsies: Tubular adenomas, two fragments. V 01/09/2021 1116 Local . 02 Electronically signed: . Faye Hernandez MD, Pathologist NPI- [id number] . 01 Gross description: . RECTAL POLYPS: Received in formalin are 2 fragment(s) of zaman, soft tissue measuring 0.5 x 0.4 x 0.2 cm to 0.4 x 0.3 x 0.2 cm submitted entirely in 1 cassette(s) /SANDRO 01/05/2021 0439 Local . 02 Pathologist provided ICD-10: D12.8 . 02 CPT . 299230 Performed at: 01 [facility] [address] [id number] MD Ezekiel Domingo MD Phone: [phone] Performed at: 02 [facility] [address] [place], [place] [id number] MD Faye Hernandez MD Phone: [phone]
--- NOTE | 2021-01-04 14:51 | P.HP_ITS ---
History of Present Illness History of Present Illness Date Patient Seen: 01/04/21 Time Patient Seen: 14:51 Chief complaint: SDC Narrative: The patient presents for colorectal sreening. They have never had any previous examination for such. No personal or family history of colon cancer. On further history denies any recent gastrointestinal symptoms. No nausea, vomiting, abdominal pain, loss of appetite, unexplained weight loss, change in bowel habits, diarrhea, constipation, melena, hematochezia, or bright red blood per rectum. Patient History Medical History Chicken pox (~1974) Hyperlipidemia Hypertriglyceridemia Low testosterone Mumps (~1974) Pulmonary embolism (~1988) Rosacea (~2011) Testicular cancer (~1988) Surgical History Anesthesia History of orchiectomy (~1988) History of surgery (~1988) History of vasectomy (~2014) Family & Social History Family History Father Age: 78 Mental health problem Mother Age: 77 Hypertension Mental health problem Social History: household members spouse Tobacco & Substance use: Tobacco type cigarettes Smoking Status Former smoker alcohol intake frequency a few times a month Substance Use Type does not use Meds Home Medications and Allergies Home Medications Medication Instructions Recorded Confirmed Type aspirin 81 mg chewable tablet 81 mg PO DAILY 09/10/18 History fenofibrate 54 mg tablet 54 mg PO DAILY #90 tab 07/13/20 Rx doxycycline hyclate 50 mg capsule 50 mg PO DAILY #90 cap 07/19/20 Rx sildenafil (pulm.hypertension) 20 20 - 100 mg PO DAILY PRN #30 tab 12/07/20 Rx mg tablet Allergies Allergy/AdvReac Type Severity Reaction Status Date / Time ampicillin [AMPICILLIN] Allergy Mild Hives Verified 01/04/21 14:18 Penicillins [PENICILLINS] Allergy Mild Hives Verified 01/04/21 14:18 Review of Systems Review of Systems ROS: Yes All systems reviewed with the patient and are negative except as otherwise documented Exam Vital Signs (past 8 hours): - 01/04/21 14:24 Temperature 98.3 F Pulse Rate 80 Respiratory Rate 16 Blood Pressure 115/76 Pulse Oximetry 98 Oxygen Delivery Method Room Air Narrative Exam Narrative: Constitutional-he is oriented to person, place and time. No apparent distress Cardiovascular- regular rate, no peripheral edema Pulmonary-unlabored respiratory effort, no audible wheezing Abdominal-soft, non-tender, non-distended Musculoskeletal-no cyanosis or clubbing Neurological-nonfocal, normal strength throughout, Skin-warm and dry Assessment & Plan Assessment & Plan narrative: The patient requires colorectal screening and co lonoscopy is recommended. Technical details were discussed. Risks, benefits, alternatives explained. Risks including but not limited to myocardial infarction, aspiration, bleeding, pain, missed lesion, incomplete examination, need for further radiographic studies, colonic perforation, and need for major abdominal surgery were discussed. All questions were answered to their satisfaction, and they are in agreement with this plan. Time Spent With Patient Critical Care time: I spent a total of [] minutes of critical care time on this patient's care today; this time is exclusive of procedural time.
[2021-01-04] MEDS: MIDAZOLAM 5 MG/5 ML VIAL IV (15:23)
[2021-01-04] MEDS: fentaNYL 250 MCG/5 ML INJ IV (15:23)
--- NOTE | 2021-01-04 15:33 | PM.OP.ENDO ---
Operative Date/Time/Diagnoses Date of procedure: 01/04/21 Time of procedure: 15:33 Pre-op diagnosis: Screening colonoscopy Post-op diagnosis: same Procedure & Clinicians Study performed: Colonoscopy Same procedure as scheduled: Yes Indications: Screening Surgeon: Rubin Casillas Procedure Notes Procedure in detail: Medications: Conscious sedation using 5mg IV midazolam and 250mcg IV of fentanyl The history and physical was performed/updated and the patient is ASA class is 2. The procedure was discussed in detail with the patient. Potential risks complications including infection, bleeding, missed diagnosis, perforation, need for surgery, and were explained. Their questions were answered and informed consent was obtained. Patient was brought to the procedure room and placed standard monitoring equipment. The patient's vital signs were monitored continuously throughout the entire procedure. Prior to starting time-out was performed. The patient was placed in the left lateral recumbent position. Procedural sedation was administered. Examination began with a thorough inspection of the perianal area there was no evidence of fissures, fistulae, external hemorrhoids or cutaneous malignancy. The colonoscopy scope was then placed into the anal canal and was advanced to the cecum, which was identified by the ileocecal valve, the appendiceal orifice and the confluence of the taenia. The scope was then slowly withdrawn examining colon thoroughly in all directions, irrigating it of any residual stool. FINDINGS 1. Rectal polyps 5 mm each x2 removed with cold snare. 2. Sigmoid diverticulosis The patient tolerated the procedure well. They will be discharged once criteria are met. The prep was of good/excellent quality. The withdrawl time was 6minutes. The sedation time was 31 minutes. Specimen(s): other (Rectal polyps) Complications: none Impression: Colonic polyps Post-procedure Recommendations: Colonscopy in 5 years Disposition: same day surgery
== END 2021-01-04 16:28 | disposition home or self-care (01) ==
PROVIDERS: PCP Student in an Organized Health Care Education/Training Program; Referring Provider Surgery; Visit Provider Surgery
PROC: 0DJD8ZZ Inspection of Lower Intestinal Tract, Via Natural or Artificial Opening Endoscopic (ICD-10-PCS; CPT 45378; principal; 2021-01-04 15:15)
DX: Z12.11 Encounter for screening for malignant neoplasm of colon (principal); D12.8 Benign neoplasm of rectum; K57.30 Diverticulosis of large intestine without perforation or abscess without bleeding; E78.5 Hyperlipidemia, unspecified; Z85.47 Personal history of malignant neoplasm of testis
CPT/HCPCS: 45385; 99152; 99153; J2250; J3010

== ENCOUNTER → 2021-10-24 14:47 | Outpatient (CLI) | payer OTHER, SELFPAY ==
[2021-10-24 15:55] LABS: Appearance Urine UA CLEAR; Bilirubin Urine UA NEGATIVE (NEGATIVE); Color Urine UA YELLOW; Glucose Urine UA NEGATIVE (Negative); Ketones Urine UA TRACE (NEGATIVE); Leukocyte Esterase Urine UA NEGATIVE (NEGATIVE); Nitrite Urine UA NEGATIVE (Negative); Occult Blood Urine UA NEGATIVE (Negative); Protein Urine UA 1+ (Negative); Specific Gravity Urine UA 1.025 (1.000-1.035); Urobilinogen Urine UA 0.2 E.U./dL (0.2)
[2021-10-24 16:16] LABS: Bacteria Urine None Seen; Culture Indicated Urine Cult Not Indicated; Mucus Urine 1+ (Negative); RBC Urine None Seen (0-5/HPF); Squamous Epithelial Cell Urine 0-1 /HPF (0-5/HPF); WBC Urine 1-5/HPF (0-5/HPF)
== END ==
PROVIDERS: PCP Student in an Organized Health Care Education/Training Program; Referring Provider Student in an Organized Health Care Education/Training Program; Visit Provider Student in an Organized Health Care Education/Training Program
DX: R30.0 Dysuria (principal)
CPT/HCPCS: 81001

== ENCOUNTER → 2021-12-05 10:05 | Outpatient (CLI) | payer OTHER, SELFPAY ==
--- NOTE | 2021-12-05 10:09 | DI.CT.S_ITS ---
PROCEDURE: CT CHEST WO CON INDICATIONS: surveillance of prior cancer TECHNIQUE: Noncontrast 5 mm thick sections acquired from the pulmonary apices to the posterior costophrenic angles. 1 mm lung window, 5 mm thick coronal and sagittal and 7 mm axial MIP reformats were then acquired. For radiation dose reduction, the following was used: automated exposure control, adjustment of mA and/or kV according to patient size. COMPARISON: [facility], CT, CT CHEST WO CON, 11/22/2020, 15:34. FINDINGS: Image quality: Excellent. Lungs and pleura: Scattered areas of scarring and atelectasis, overall distribution is similar to prior. Stable sub solid nodule in the right middle lobe (3/198). No new or enlarging nodules. Mediastinum: Heart size is normal. No thoracic aortic aneurysm. No adenopathy. Tiny hiatal hernia. Bones and chest wall: Thyroid is within normal limits. Chest wall is unremarkable. No acute or suspicious osseous abnormality. Abdomen: same-day MRI findings separately dictated. IMPRESSION: No new or enlarging disease in the chest. MRI findings separately dictated for the abdomen and pelvis. Stable/incidental findings above. Dictated by: Flaco Mcarthur M.D. on 12/05/2021 at 13:25 Approved by: Flaco Mcarthur M.D. on 12/05/2021 at 13:30
--- NOTE | 2021-12-05 10:09 | DI.MRI.S_ITS ---
PROCEDURE: MR ABDOME PELVIS WWO CON INDICATIONS: surveillance of prior cancer, reportedly testicular cancer TECHNIQUE: Coronal HASTE, axial 2D FLASH in- and [id number]; axial breath-hold T2 FSE; dynamic axial VIBE during IV gadolinium administration; postgadolinium coronal VIBE or 2D FLASH with fat saturation from the hepatic dome to the iliac crests. COMPARISON: [facility], MR, MR ABDOMEN PELVIS O [facility], 11/22/2020, 15:49. FINDINGS: Image quality: Excellent. Lung bases: No basal effusions or enhancing lung masses. Normal size heart. No hiatal hernia. Solid organs: No enhancing liver masses. Normal gallbladder wall thickness. No biliary dilatation. Normal pancreas. Normal size spleen. No adrenal nodules. Symmetric enhancement. No hydronephrosis or hydroureter. Small right renal cysts. Nodes and vessels: Stable small aortocaval retroperitoneal lymphocele or cyst. No retroperitoneal or mesenteric adenopathy. Abdominal aorta and inferior vena cava are normal caliber. Bowel and peritoneum: Stomach and bowel loops are normal without obstruction. Normal appendix. No free intraperitoneal fluid. Pelvis: Surgical changes of prior right orchiectomy. No right inguinal or pelvic adenopathy. No suspicious left scrotal mass. Prostate gland is normal size. Normal urinary bladder wall thickness. Seminal vesicles appear normal. No suspicious pelvic mass. Bones and soft tissues: Normal marrow signal. IMPRESSION: 1. No evidence of recurrent or metastatic disease in the abdomen or pelvis. 2. Status post right orchiectomy. Dictated by: Jahaira Jimenez M.D. on 12/05/2021 at 17:18 Approved by: Jahaira Jimenez M.D. on 12/05/2021 at 17:28
== END ==
PROVIDERS: PCP Student in an Organized Health Care Education/Training Program; Referring Provider Student in an Organized Health Care Education/Training Program; Visit Provider Student in an Organized Health Care Education/Training Program
DX: C62.90 Malignant neoplasm of unspecified testis, unspecified whether descended or undescended (principal)
CPT/HCPCS: 71250; 72197; 74183; A9579

== ENCOUNTER → 2022-01-04 08:08 | Outpatient (CLI) | payer OTHER, SELFPAY ==
[2022-01-04 10:25] LABS: Cholesterol 167 mg/dL (140-199); HDL Cholesterol 38 mg/dL (40-60); LDL Cholesterol Calculated 102 mg/dL (<100); Triglycerides 136 mg/dL (35-150)
== END ==
PROVIDERS: PCP Student in an Organized Health Care Education/Training Program; Referring Provider Student in an Organized Health Care Education/Training Program; Visit Provider Student in an Organized Health Care Education/Training Program
DX: E78.2 Mixed hyperlipidemia (principal)
CPT/HCPCS: 36415; 80061

== ENCOUNTER 2022-11-25 13:37 | Emergency (ER) | payer BC, SELFPAY ==
[2022-11-25 14:01] VITALS: BP 138/65; PULSE 85; RESP 16; TEMP 36.8; O2SAT 96; BMI 29.0
--- NOTE | 2022-11-25 14:11 | DI.US.S_ITS ---
PROCEDURE: US PERIP VENOUS LOW EXTREM LT INDICATIONS: PAIN AND SWELLING TECHNIQUE: Real-time imaging, as well as color and pulse Doppler interrogation, were performed of the lower extremity deep veins from the inguinal ligament to the popliteal fossa, with documentation of the visualized calf veins. COMPARISON: [facility], , [facility] VENOUS LOW EXTREM LT, 10/17/2017, 16:55. FINDINGS: Partially occlusive common femoral vein thrombosis can be seen. Disc clot appears partially mobile. There is occlusive thrombus seen throughout the femoral artery and within the popliteal artery. IMPRESSION: Extensive left lower extremity deep venous thrombosis, with occlusive thrombus throughout the femoral vein as well as within the popliteal vein. Within the left common femoral vein, there is partially occlusive thrombus, which appears mobile and is considered to be at risk for dislodgement. Note: Case discussed by telephone with Dr. Amezquita at 1:58 p.m. [place] time on November 25, 2022. Dictated by: Kody Price M.D. on 11/25/2022 at 13:54 Approved by: Kody Price M.D. on 11/25/2022 at 14:00
--- NOTE | 2022-11-25 14:53 | DI.CT.S_ITS ---
PROCEDURE: CT ANGIO CHEST PE PROTOCOL INDICATIONS: +dvt, back pain, hx PE TECHNIQUE: After the administration of intravenous contrast, 2 mm thick sections acquired from the pulmonary apices to the posterior costophrenic angles. 3-dimensional maximum intensity projection (MIP) coronal and sagittal reformats were then acquired through the thorax. For radiation dose reduction, the following was used: automated exposure control, adjustment of mA and/or kV according to patient size. COMPARISON: [facility], CT, CT CHEST WO CON, 12/05/2021, 10:24. FINDINGS: Image quality: Excellent. Pulmonary arteries: The bilateral pulmonary arteries are normal in size. There are multiple subsegmental filling defects bilaterally extending into the bilateral lower lobes and upper lobes. No saddle emboli within the central pulmonary arteries. Lungs and pleura: Lung volumes are low. Atelectasis or scarring is present at the lateral left lung base and at the anterior right middle lobe. No pleural effusion or pneumothorax. Mediastinum: Heart size is normal, without pericardial effusion. No leftward bowing of the interventricular septum. No mediastinal or hilar adenopathy. Thoracic aorta is normal in caliber and enhancement. Esophagus is normal in caliber, without hiatal hernia. Bones and chest wall: No suspicious bony lesions. Ribs and thoracic spine appear intact throughout. Thyroid gland is unremarkable. No axillary or supraclavicular adenopathy. Abdomen: Visualized upper abdominal solid organs appear normal in the early arterial phase of enhancement. IMPRESSION: 1. Bilateral subsegmental pulmonary emboli without evidence for heart strain or pulmonary infarct. This finding was discussed with the charge nurse Cheyanne Palmer at 4:40 p.m. On November 25, 2022. Dictated by: Nusrat Gallegos M.D. on 11/25/2022 at 16:32 Approved by: Nusrat Gallegos M.D. on 11/25/2022 at 16:42
--- NOTE | 2022-11-25 14:54 | ED.EXTPRO ---
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 He was on Coumadin. 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 Has since been clear on his scans and now CT scan once yearly. Patient noted some swelling in his left leg in the past day. He would had pain in his leg for several weeks before. He notices a little bit of discoloration. Patient states no fevers. Denies chest pain or pressure no shortness of breath but does have some thoracic back pain. No syncope. No nausea or vomiting. No diarrhea constipation, no dysuria, urgency or frequency. Patient states he has been less active secondary to online school. He takes fenofibrate daily, doxycycline for rosacea as his daily medications. Allergic to ampicillin penicillin. Former smoker, occasional alcohol, no illicit. Related Data Previous Rx's Medication Instructions Recorded doxycycline hyclate 50 mg capsule 50 mg PO DAILY #90 caps 01/12/22 sildenafil (pulm.hypertension) 20 20 - 100 mg PO DAILY PRN sexual 01/12/22 mg tablet activity #90 tabs fenofibrate 54 mg tablet 54 mg PO DAILY #90 tabs 11/07/22 dabigatran etexilate 150 mg 150 mg PO BID #60 caps 11/25/22 capsule (Pradaxa) Allergies Allergy/AdvReac Type Severity Reaction Status Date / Time ampicillin [AMPICILLIN] Allergy Mild Hives Verified 11/25/22 14:06 Penicillins [PENICILLINS] Allergy Mild Hives Verified 11/25/22 14:06 Review of Systems Review of Systems ROS Unobtainable: All systems reviewed & are unremarkable except as noted in HPI and below Patient History Medical History Chicken pox (~1974) Low testosterone Mumps (~1974) Pulmonary embolism (~1988) Rosacea (~2011) Testicular cancer (~1988) Surgical History Anesthesia History of orchiectomy (~1988) History of surgery (~1988) History of vasectomy (~2014) Family History Father Age: 80 Mental health problem Mother Age: 79 Hypertension Mental health problem Social History household members: spouse Smoking Status: Former smoker Smoking Status: Former smoker alcohol intake frequency: a few times a month Substance Use Type: does not use Exam Narrative Exam Narrative: GENERAL: Alert and oriented x three, male in distress. HEENT: Head normocephalic, atraumatic, EOMI, pupils reactive, face symmetric, moist mucous membranes NECK: Supple, full range of motion CARDIOVASCULAR: Regular rate and rhythm without murmurs, rubs or gallops. RESPIRATORY: Breath sounds equal bilaterally, no wheezes rales or rhonchi. ABDOMEN: Soft, nontender. Normoactive bowel sounds all 4 quadrants. No guarding or rebound, rigidity, no mass : No CVA tenderness EXTREMITIES: Normal range of motion, no clubbing. Patient has a mild edema left lower extremity. Does have some varicose veins. Some slight discoloration. Has 2+ dorsalis pedis. Neurovascularly intact NEUROLOGICAL: Cranial nerves II through XII grossly intact. Moving all extremities SKIN: Warm, dry, no petechiae, no rashes or lesions. Initial Vital Signs Initial Vital Signs: Vital Signs Temperature 98.3 F 11/25/22 14:01 Pulse Rate 85 11/25/22 14:01 Respiratory Rate 16 11/25/22 14:01 Blood Pressure 138/65 11/25/22 14:01 Pulse Oximetry 96 11/25/22 14:01 Oxygen Delivery Method Room Air 11/25/22 14:01 Course Orders Ordered: Discontinued Medications Dabigatran (Dabigatran 75 Mg Capsule) 150 mg PO NOW ONE Stop: 11/25/22 16:51 Last Admin: 11/25/22 17:01 Dose: 150 mg Documented By: RB Dabigatran (Dabigatran 75 Mg Capsule) 150 mg PO NOW ONE Stop: 11/25/22 18:01 Last Admin: 11/25/22 18:17 Dose: 150 mg Documented By: RB Dabigatran (Dabigatran 75 Mg Capsule) 150 mg PO DAILY Stop: 11/25/22 23:59 Vital Signs Vital signs: Vital Signs - 8 hr 11/25/22 14:01 Temperature 98.3 F Pulse Rate 85 Respiratory Rate 16 Blood Pressure 138/65 Pulse Oximetry 96 Oxygen Delivery Method Room Air MDM - Extremity (Nontraumatic) Lab Data 11/25/22 15:00 11/25/22 15:00 Labs: Lab Results 11/25/22 11/25/22 11/25/22 Range/Units 15:00 15:00 15:00 WBC 8.9 (4.5-11.0) X10^3/uL RBC 4.92 (4.5-5.9) X10^6/uL Hgb 15.1 (13.5-17.5) g/dL Hct 43.0 (41-53) % MCV 87.3 (80-100) fL MCH 30.6 (26-34) PG MCHC 35.0 (30-36) % RDW 13.0 (11.6-14.8) % Plt Count 276 (150-400) X10^3/uL Neut % (Auto) 60.6 (50-75) % Lymph % (Auto) 27.6 (25-40) % [place] % (Auto) 7.8 (3-14) % Eos % (Auto) 3.2 (2-4) % Baso % (Auto) 0.8 (0-2) % Neut # (Auto) 5400 (6637-6559) /uL Lymph # (Auto) 2500 (0870-1421) /uL [place] # (Auto) 700 (0-900) /uL Eos # (Auto) 300 (0-450) /uL Baso # (Auto) 100 (0-100) /uL PT 13.0 H (10.1-12.7) SECONDS INR 1.1 (0.9-1.3) APTT 33 (26-36) SECONDS Sodium 139 (137-145) mmol/L Potassium 4.0 (3.4-5.1) mmol/L Chloride 103 (98-107) mmol/L Carbon Dioxide 29 (22-32) mmol/L BUN 17 (9-20) mg/dL Creatinine 1.06 (0.66-1.25) mg/dL Estimated GFR > 60 (>60) mL/min BUN/Creatinine Ratio 16.0 (6-22) Glucose 97 (70-100) mg/dL Calcium 9.3 (8.4-10.2) mg/dL Total Bilirubin 0.8 (0.2-1.3) mg/dL AST 31 (17-59) IU/L ALT 27 (<50) IU/L Alkaline Phosphatase 61 (38-126) U/L Total Creatine Kinase 147 (55-170) U/L Troponin I (0.01-0.034) ng/mL NT-Pro-B Natriuret Pep (<125) pg/mL Total Protein 7.8 (6.3-8.2) g/dL Albumin 4.6 (3.5-5.0) g/dL Globulin 3.2 (1.7-4.1) g/dL Albumin/Globulin Ratio 1.4 (1.0-2.8) 11/25/22 Range/Units 15:00 WBC (4.5-11.0) X10^3/uL RBC (4.5-5.9) X10^6/uL Hgb (13.5-17.5) g/dL Hct (41-53) % MCV (80-100) fL MCH (26-34) PG MCHC (30-36) % RDW (11.6-14.8) % Plt Count (150-400) X10^3/uL Neut % (Auto) (50-75) % Lymph % (Auto) (25-40) % [place] % (Auto) (3-14) % Eos % (Auto) (2-4) % Baso % (Auto) (0-2) % Neut # (Auto) (7917-1277) /uL Lymph # (Auto) (8234-9384) /uL [place] # (Auto) (0-900) /uL Eos # (Auto) (0-450) /uL Baso # (Auto) (0-100) /uL PT (10.1-12.7) SECONDS INR (0.9-1.3) APTT (26-36) SECONDS Sodium (137-145) mmol/L Potassium (3.4-5.1) mmol/L Chloride (98-107) mmol/L Carbon Dioxide (22-32) mmol/L BUN (9-20) mg/dL Creatinine (0.66-1.25) mg/dL Estimated GFR (>60) mL/min BUN/Creatinine Ratio (6-22) Glucose (70-100) mg/dL Calcium (8.4-10.2) mg/dL Total Bilirubin (0.2-1.3) mg/dL AST (17-59) IU/L ALT (<50) IU/L Alkaline Phosphatase (38-126) U/L Total Creatine Kinase 148 (55-170) U/L Troponin I < 0.012 (0.01-0.034) ng/mL NT-Pro-B Natriuret Pep < 20 (<125) pg/mL Total Protein (6.3-8.2) g/dL Albumin (3.5-5.0) g/dL Globulin (1.7-4.1) g/dL Albumin/Globulin Ratio (1.0-2.8) Imaging Data US - DVT: Radiologist's Impression: prelim from tech is superficial femoral as well as common femoral DVT. She states also has some wiggle or movement. This result was also called to myself by Dr. Price from Radiology. ECG Data Attestation EKG: I personally reviewed and interpreted this ECG as follows: MDM Narrative Medical decision making narrative: 52-year-old male presents with complaint of left lower extremity swelling and discomfort. Swelling is just started in the last day or so. Patient does have a history of testicular cancer and seminal vesicle cancer remotely as well as pulmonary emboli and DVTs. He was anticoagulant Coumadin but this was around age 18. Patient is not currently on anticoagulation. DVT ultrasound is positive. Patient has had some thoracic back pain and concerned about potential embolization so labs, EKG, CT PE were obtained shows bilateral subsegmental PE, no right heart strain or pulmonary infarct. No saddle emboli. Patient also requested CT abdomen pelvis with contrast which was obtained no acute abnormalities postsurgical changes consistent with prior retroperitoneal mary lou dissection. Patient is hemodynamically stable. Labs including troponin and BNP are negative no acute renal failure or other electrolyte abnormalities. No changes to liver enzymes. After discussion with patient he has not had any hypoxia no hypotension. He is ambulating without issue he had some mild thoracic back pain which he states is resolved without any intervention. PESI score is 3 points, patient has history of cancer but no active cancer currently. Score is 93 point class 3. Discussed with patient he would prefer to return home his Hestia criteria patient has 0 points and is felt appropriate for discharge home with strict return precautions. Patient's primary care has recently left the area so spoke with Dr. Izaguirre who is covering for Dr. Greenberg. Patient has seen this group before and would like to return for care. They will help faciliate short term follow up. 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 Discussed if there is any barriers to filling his prescription such as cost or insurance will not cover to please have the pharmacy call and we can change this or patient can return for additional dosing and treatment as needed. Also spoke with patient's on the phone. All questions answered. Discharge Plan Departure Patient Disposition: Home Clinical Impression: Left leg DVT, Pulmonary embolism Instructions: DI for Pulmonary Embolism Activity Restrictions/Additional Instructions: You do have a blood clot in your left leg as well as subsegmental blood clots in your lungs. I reached out to Dr. Greenberg office but call first thing in the morning for follow up. Take Pradaxa 150 mg every 12 hours. One extra dose was sent to take in the morning. Prescription sent to [facility]. If you have trouble filling the prescription or if it is very expensive please call and we can adjust the prescription. Please return for lightheadedness, passing out, new chest pain, back pain, nausea or vomiting, swelling of your extremities or other new or concerning changes. Prescriptions: New dabigatran etexilate [Pradaxa] 150 mg capsule 150 mg PO BID Qty: 60 0RF No Action doxycycline hyclate 50 mg capsule 50 mg PO DAILY Qty: 90 1RF sildenafil (pulm.hypertension) 20 mg tablet 20 - 100 mg PO DAILY PRN (Reason: sexual activity) Qty: 90 3RF Rx Instructions: Take 30 minutes prior to sexual activity. fenofibrate 54 mg tablet 54 mg PO DAILY Qty: 90 1RF Referrals: Khanh Tamez MD [Primary Care Provider] - Stand Alone Forms: Patient Portal/API
[2022-11-25 15:14] LABS: Add Manual Diff / Slide Review NO; Basophils Absolute Auto 100 /uL (0-100); Basophils Percent Auto 0.8 % (0-2); Eosinophils Absolute Auto 300 /uL (0-450); Eosinophils Percent Auto 3.2 % (2-4); Hemoglobin 15.1 g/dL (13.5-17.5); Lymphocytes Absolute Auto 2500 /uL (1100-4500); Lymphocytes Percent Auto 27.6 % (25-40); Mean Corpuscular Hemoglobin 30.6 PG (26-34); Mean Corpuscular Volume 87.3 fL (80-100); Monocytes Absolute Auto 700 /uL (0-900); Monocytes Percent Auto 7.8 % (3-14); Neutrophils Absolute Auto 5400 /uL (1500-7000); Neutrophils Percent Auto 60.6 % (50-75); Platelet Count 276 X10^3/uL (150-400); Red Blood Cell Count 4.92 X10^6/uL (4.5-5.9); White Blood Cell Count 8.9 X10^3/uL (4.5-11.0)
[2022-11-25 15:22] LABS: INR 1.1 (0.9-1.3)
[2022-11-25 15:24] LABS: PTT Partial Thromboplastin Tim 33 SECONDS (26-36)
[2022-11-25 15:36] LABS: Alanine Aminotransferase 27 IU/L (<50); Albumin 4.6 g/dL (3.5-5.0); Albumin Globulin Ratio 1.4 (1.0-2.8); Alkaline Phosphatase 61 U/L (38-126); Aspartate Aminotransferase 31 IU/L (17-59); Bilirubin Total 0.8 mg/dL (0.2-1.3); Blood Urea Nitrogen 17 mg/dL (9-20); Calcium 9.3 mg/dL (8.4-10.2); Carbon Dioxide 29 mmol/L (22-32); Chloride 103 mmol/L (98-107); Creatine Kinase 147 U/L (55-170); Creatine Kinase 148 U/L (55-170); Estimated Glomerular Filt Rate > 60 mL/min (>60); Globulin 3.2 g/dL (1.7-4.1); Glucose 97 mg/dL (70-100); HEMOLYSIS 16 (0-50); Sodium 139 mmol/L (137-145); Total Protein 7.8 g/dL (6.3-8.2)
--- NOTE | 2022-11-25 15:46 | DI.CT.S_ITS ---
PROCEDURE: CT ABDOMEN PELVIS W CON INDICATIONS: leg swelling TECHNIQUE: After the administration of intravenous contrast, axial sections acquired from the lung bases to the pubic symphysis. Coronal and sagittal reformats were performed. For radiation dose reduction, the following was used: automated exposure control, adjustment of mA and/or kV according to patient size. COMPARISON: None. FINDINGS: Image quality: Diagnostic. Lung bases: Lung bases are clear Heart: No significant findings. ABDOMEN: Liver: Unremarkable. Gallbladder: Unremarkable Biliary ducts: No intrahepatic or extrahepatic biliary ductal dilatation identified. Pancreas: Homogeneous enhancement without focal lesions or pancreatic ductal dilatation. No peripancreatic inflammation or organized fluid collections. Spleen: No splenomegaly Adrenal Glands: Unremarkable. Kidneys and Ureters: Kidneys are symmetric in size and enhancement, and there is no obstructive uropathy. No perinephric inflammatory changes. Ureters are normal in course and caliber. A few tiny punctate nonobstructing renal stones. These are seen bilaterally. Stomach and Bowel: Stomach, small bowel loops, and colon are unremarkable. Normal appendix. Peritoneum: No abnormal intraperitoneal fluid. No free air. Ventral Wall: No hernias. Abdominal Nodes: No mesenteric adenopathy by size criteria. Numerous surgical clips noted in the retroperitoneum extending along the aorta, IVC right anterior psoas muscle, and into the lower pelvis near the rectum. Findings are compatible with previous retroperitoneal mary lou dissection. No evidence for retroperitoneal mass or retroperitoneal adenopathy. Vessels: Aorta and inferior vena cava are normal in size. PELVIS: Pelvic Organs: Unremarkable. Bladder: Unremarkable. Pelvic Nodes: No enlarged lymph nodes. Miscellaneous: No hernias are seen. Bones: Visualized osseous structures appear intact without acute fracture or focal destructive lesion. No acute compression fractures of the imaged spine. IMPRESSION: CT abdomen and pelvis without acute abnormalities. Bilateral nonobstructing punctate renal stones. No hydronephrosis or perinephric stranding. Normal appendix. Postsurgical changes of previous retroperitoneal mary lou dissection. No evidence for retroperitoneal adenopathy. Dictated by: Boy Schreiber M.D. on 11/25/2022 at 17:38 Approved by: Boy Schreiber M.D. on 11/25/2022 at 17:46
[2022-11-25 15:47] LABS: NT-proBNP (BNP-Adult 18+) < 20 pg/mL (<125); Troponin I < 0.012 ng/mL (0.01-0.034)
[2022-11-25] MEDS: DABIGATRAN 75 MG CAPSULE 150 MG PO ×2 (17:01→18:17)
== END 2022-11-25 18:18 | disposition home or self-care (01) ==
PROVIDERS: Emergency Provider Emergency Medicine; PCP Student in an Organized Health Care Education/Training Program
DX: I82.402 Acute embolism and thrombosis of unspecified deep veins of left lower extremity (principal); I26.99 Other pulmonary embolism without acute cor pulmonale; M54.6 Pain in thoracic spine
CPT/HCPCS: 36415; 71275; 74177; 80053; 82550; 83880; 84484; 85025; 85610; 85730; 93971; 99284; Q9967

== ENCOUNTER → 2022-12-07 09:46 | Outpatient (CLI) | payer BC, SELFPAY ==
[2022-12-07 10:26] LABS: INR 1.2 (0.9-1.3); Prothrombin Time 13.2 SECONDS (10.1-12.7)
[2022-12-07 10:29] LABS: PTT Partial Thromboplastin Tim 50 SECONDS (26-36)
[2022-12-11 20:34] LABS: Cardiolipin Ab IgA <9 APL U/mL (0-11); Cardiolipin Ab IgG <9 GPL U/mL (0-14); Cardiolipin Ab IgM <9 MPL U/mL (0-12)
[2022-12-16 15:39] LABS: Dil Russell Viper Venom Conf 1.7 ratio (0.8-1.2); Dilute Russell Viper Venom 130.3 sec (0.0-47.0); Dilute Russell Viper Venom Mix 80.1 sec (0.0-40.4); Hexagonal Phase Phospholipid 13 sec (0-11); Lupus Reflex Interpretation Comment: (.); PTT- LA Mix 59.5 sec (0.0-40.5); PTT-LA 64.4 sec (0.0-43.5); Protein C-Functional 137 % (73-180); Protein S-Functional 222 % (63-140)
== END ==
PROVIDERS: PCP Internal Medicine; Referring Provider Internal Medicine; Visit Provider Internal Medicine
DX: E78.2 Mixed hyperlipidemia (principal); I26.99 Other pulmonary embolism without acute cor pulmonale; I82.402 Acute embolism and thrombosis of unspecified deep veins of left lower extremity
CPT/HCPCS: 36415; 81241; 85300; 85303; 85306; 85598; 85610; 85613; 85730; 86147

== ENCOUNTER → 2023-08-21 09:00 | Outpatient (CLI) | payer BC, SELFPAY ==
[2023-08-21 10:09] LABS: Add Manual Diff / Slide Review NO; Basophils Absolute Auto 100 /uL (0-100); Basophils Percent Auto 0.7 % (0-2); Eosinophils Absolute Auto 200 /uL (0-450); Hematocrit 45.6 % (41-53); Hemoglobin 15.9 g/dL (13.5-17.5); Lymphocytes Absolute Auto 2900 /uL (1100-4500); Lymphocytes Percent Auto 36.7 % (25-40); Mean Corpuscular HGB Conc 34.9 % (30-36); Mean Corpuscular Hemoglobin 30.9 PG (26-34); Mean Corpuscular Volume 88.5 fL (80-100); Monocytes Absolute Auto 700 /uL (0-900); Monocytes Percent Auto 9.1 % (3-14); Neutrophils Absolute Auto 4000 /uL (1500-7000); Neutrophils Percent Auto 50.5 % (50-75); Platelet Count 270 X10^3/uL (150-400); Red Blood Cell Count 5.15 X10^6/uL (4.5-5.9); Red Cell Distribution Width 13.1 % (11.6-14.8)
[2023-08-21 13:01] LABS: Alanine Aminotransferase 45 IU/L (<50); Albumin 4.8 g/dL (3.5-5.0); Albumin Globulin Ratio 1.7 (1.0-2.8); Alkaline Phosphatase 53 U/L (38-126); Aspartate Aminotransferase 30 IU/L (17-59); BUN Creatinine Ratio 23.6 (6-22); Bilirubin Total 0.9 mg/dL (0.2-1.3); Blood Urea Nitrogen 25 mg/dL (9-20); Calcium 9.8 mg/dL (8.4-10.2); Carbon Dioxide 23 mmol/L (22-32); Chloride 107 mmol/L (98-107); Cholesterol 206 mg/dL (140-199); Estimated Glomerular Filt Rate > 60 mL/min (>60); Globulin 2.9 g/dL (1.7-4.1); Glucose 99 mg/dL (70-100); HDL Cholesterol 52 mg/dL (40-60); HEMOLYSIS < 15 (0-50); LDL Cholesterol Calculated 115 mg/dL (<100); Potassium 4.4 mmol/L (3.4-5.1); Sodium 139 mmol/L (137-145); TSH w/ Reflex to FT4 1.38 uIU/mL (0.47-4.68); Total Protein 7.7 g/dL (6.3-8.2); Triglycerides 197 mg/dL (35-150)
[2023-08-21 13:13] LABS: LDL Cholesterol Direct 111 mg/dL (<100)
== END ==
PROVIDERS: PCP Internal Medicine; Referring Provider Internal Medicine; Visit Provider Internal Medicine
DX: E78.2 Mixed hyperlipidemia (principal); Z79.01 Long term (current) use of anticoagulants; D64.9 Anemia, unspecified
CPT/HCPCS: 36415; 80053; 80061; 83721; 84443; 85025

== ENCOUNTER → 2023-09-04 11:04 | Outpatient (CLI) | payer BC, SELFPAY ==
--- NOTE | 2023-09-04 11:30 | DI.MRI.S_ITS ---
PROCEDURE: MR ABDOME PELVIS WWO CON INDICATIONS: h/o testicular cancer TECHNIQUE: Coronal HASTE, axial 2D FLASH in- and [id number]; axial breath-hold T2 FSE; dynamic axial VIBE during IV gadolinium administration; postgadolinium coronal VIBE or 2D FLASH with fat saturation from the hepatic dome to the iliac crests. COMPARISON: [facility], MR, MR ABDOMEN PELVIS WWO CON, 12/05/2021, 10:50. [facility], CT, CT ABDOMEN PELVIS W CON, 11/25/2022, 15:49. FINDINGS: Image quality: Diagnostic Lower chest: Lungs are not well evaluated on MRI, no gross abnormality Liver: Suspected hepatic steatosis. Gallbladder and biliary system: Unremarkable, nondilated Pancreas: No ductal dilation Spleen: Nonenlarged Adrenals: No discrete nodule Kidneys: No hydronephrosis or solid renal mass. There are small cysts. Vessels and lymph nodes: Prior mary lou dissection. No pathologic lymph nodes by size criteria. The main portal vein is patent. No abdominal aortic aneurysm Bowel and peritoneum: No evidence of small bowel obstruction. No pathologic ascites Body wall: Unremarkable Abdominal bones: No suspicious finding. Bladder: Unremarkable Reproductive organs: Heterogeneous enhancement of the prostate, no focal suspicious findings Right orchidectomy changes. Rectum: Unremarkable Vessels and lymph nodes: No aneurysmal vessel or pathologic lymph nodes by size criteria. Pelvic wall: Unremarkable Pelvic bones: No suspicious findings. IMPRESSION: No active metastases identified in the abdomen or pelvis. Other incidental and nonacute findings are described above. o Dictated by: Flaco Mcarthur M.D. on 09/04/2023 at 14:35 Approved by: Flaco Mcarthur M.D. on 09/04/2023 at 14:43
--- NOTE | 2023-09-04 12:30 | DI.CT.S_ITS ---
PROCEDURE: CT CHEST WO CON INDICATIONS: testicular cancer h/o TECHNIQUE: Noncontrast 5 mm thick sections acquired from the pulmonary apices to the posterior costophrenic angles. 1 mm lung window, 5 mm thick coronal and sagittal and 7 mm axial MIP reformats were then acquired. For radiation dose reduction, the following was used: automated exposure control, adjustment of mA and/or kV according to patient size. COMPARISON: , CT, CT ANGIO CHEST PE PROTOCOL, 11/25/2022, 15:49. , CT, CT CHEST WO CON, 12/05/2021, 10:24. FINDINGS: Image quality: Diagnostic. Lower Neck: No enlarged lymph nodes. Thyroid: No thyroid nodules which require sonographic follow up, per consensus guidelines. Axillae: No enlarged lymph nodes. Chest Wall: Unremarkable. Bones: Unremarkable. Lungs and Pleura: No pneumothorax or pleural effusions. Stable subsolid pulmonary nodule, right middle lobe, previous image 197/3 of the 12/05/2021 study, and current image 201/3. No new or increasing pulmonary nodules. Chronic scarring anterior medial right middle lobe. Heart: Heart size is normal. No pericardial effusion. Thoracic Vessels: The aorta and pulmonary arteries demonstrate normal size. Mediastinum and Tracy: No enlarged lymph nodes. Esophagus: No wall thickening. No hiatal hernia. Upper Abdomen: Visualized upper abdomen solid organs and bowel loops appear normal. IMPRESSION: 1. Stable subsolid pulmonary nodule, right middle lobe 2. No findings suspicious for metastatic disease in the chest. Dictated by: Prasanth Toledo M.D. on 09/04/2023 at 17:58 Approved by: Prasanth Toledo M.D. on 09/04/2023 at 18:01
== END ==
LOC: MRI 11:05
PROVIDERS: PCP Internal Medicine; Referring Provider Internal Medicine; Visit Provider Internal Medicine
DX: C62.90 Malignant neoplasm of unspecified testis, unspecified whether descended or undescended (principal); R91.1 Solitary pulmonary nodule; N28.1 Cyst of kidney, acquired
CPT/HCPCS: 71250; 72197; 74183; A9579

== ENCOUNTER → 2024-08-17 07:01 | Outpatient (CLI) | payer OTHER, SELFPAY ==
[2024-08-17 08:25] LABS: Add Manual Diff / Slide Review NO; Basophils Absolute Auto 0 /uL (0-100); Basophils Percent Auto 0.4 % (0-2); Eosinophils Absolute Auto 300 /uL (0-450); Eosinophils Percent Auto 3.8 % (2-4); Lymphocytes Absolute Auto 3000 /uL (1100-4500); Lymphocytes Percent Auto 44.2 % (25-40); Mean Corpuscular HGB Conc 35.6 % (30-36); Mean Corpuscular Hemoglobin 31.5 PG (26-34); Mean Corpuscular Volume 88.4 fL (80-100); Monocytes Absolute Auto 800 /uL (0-900); Monocytes Percent Auto 11.1 % (3-14); Neutrophils Absolute Auto 2800 /uL (1500-7000); Neutrophils Percent Auto 40.5 % (50-75); Platelet Count 252 X10^3/uL (150-400); Red Blood Cell Count 4.76 X10^6/uL (4.5-5.9); Red Cell Distribution Width 12.9 % (11.6-14.8); White Blood Cell Count 6.8 X10^3/uL (4.5-11.0)
[2024-08-17 08:59] LABS: Alanine Aminotransferase 40 IU/L (<50); Albumin 4.5 g/dL (3.5-5.0); Albumin Globulin Ratio 1.9 (1.0-2.8); Alkaline Phosphatase 64 U/L (38-126); Aspartate Aminotransferase 32 IU/L (17-59); BUN Creatinine Ratio 17.2 (6-22); Bilirubin Total 0.7 mg/dL (0.2-1.3); Blood Urea Nitrogen 21 mg/dL (9-20); Calcium 9.1 mg/dL (8.4-10.2); Carbon Dioxide 25 mmol/L (22-32); Chloride 105 mmol/L (98-107); Cholesterol 196 mg/dL (140-199); Estimated Glomerular Filt Rate > 60 mL/min (>60); Globulin 2.4 g/dL (1.7-4.1); Glucose 101 mg/dL (70-99); HDL Cholesterol 47 mg/dL (40-60); HEMOLYSIS < 15 (0-50); LDL Cholesterol Calculated 121 mg/dL (<100); Potassium 4.1 mmol/L (3.4-5.1); Sodium 140 mmol/L (137-145); Total Protein 6.9 g/dL (6.3-8.2); Triglycerides 141 mg/dL (35-150)
[2024-08-17 09:10] LABS: LDL Cholesterol Direct 101 mg/dL (<100)
== END ==
PROVIDERS: PCP Internal Medicine; Referring Provider Internal Medicine; Visit Provider Internal Medicine
DX: Z79.01 Long term (current) use of anticoagulants (principal); E78.2 Mixed hyperlipidemia
CPT/HCPCS: 36415; 80053; 80061; 83721; 85025

== ENCOUNTER → 2024-08-27 12:43 | Outpatient (CLI) | payer OTHER, SELFPAY ==
--- NOTE | 2024-08-27 12:47 | DI.CT.S_ITS ---
PROCEDURE: CT CHEST WO CON INDICATIONS: testicular cancer TECHNIQUE: Noncontrast 5 mm thick sections acquired from the pulmonary apices to the posterior costophrenic angles. 1 mm lung window, 5 mm thick coronal and sagittal and 7 mm axial MIP reformats were then acquired. For radiation dose reduction, the following was used: automated exposure control, adjustment of mA and/or kV according to patient size. COMPARISON: [facility], CT, CT CHEST WO CON, 11/24/2019, 12:02. [facility], CT, CT CHEST WO CON, 09/04/2023, 12:26. [facility], CT, CT CHEST WO CON, 12/05/2021, 10:24. FINDINGS: Image quality: Diagnostic. Lower Neck: No enlarged lymph nodes. Thyroid: No thyroid nodules which require sonographic follow up, per consensus guidelines. Axillae: No enlarged lymph nodes. Chest Wall: Unremarkable. Bones: Mild degenerative changes in the spine and at the sternomanubrial joint. Lungs and Pleura: No pneumothorax or pleural effusions. No acute consolidation. Stable subsolid pulmonary nodule in the right middle lobe (3/199) dating back to at least 11/24/2019. No suspicious new or enlarging pulmonary nodule. Heart: Heart size is normal. No pericardial effusion. Thoracic Vessels: The aorta and pulmonary arteries demonstrate normal size. Mediastinum and Tracy: No enlarged lymph nodes. Esophagus: No wall thickening. No hiatal hernia. Upper Abdomen: Visualized upper abdomen solid organs and bowel loops appear normal. IMPRESSION: No signs of active metastatic disease in the chest. Stable subsolid nodule in the right middle lobe dating back to at least 2019. Approved by: Terry Sinhg M.D. on 08/30/2024 at 13:23
--- NOTE | 2024-08-27 12:47 | DI.MRI.S_ITS ---
PROCEDURE: MR ABDOME PELVIS WWO CON INDICATIONS: testicular cancer TECHNIQUE: Coronal HASTE, axial 2D FLASH in- and [id number]; axial breath-hold T2 FSE; dynamic axial VIBE during IV gadolinium administration; postgadolinium coronal VIBE or 2D FLASH with fat saturation from the hepatic dome to the iliac crests. COMPARISON: [facility], , MR ABDOMEN PELVIS O CON, 09/04/2023, 11:11. FINDINGS: Image quality: Diagnostic Lower chest: Unremarkable lung bases Liver: Hepatic steatosis Gallbladder and biliary system: Unremarkable, nondilated Pancreas: No ductal dilation Spleen: Prominent at 13 cm AP dimension Adrenals: No discrete nodules Kidneys: No solid mass. No hydronephrosis Vessels and lymph nodes: No enlarged lymph nodes by size criteria. No abdominal aortic aneurysm. No dissection surgical changes. Main portal vein appears patent Bowel and peritoneum: No small bowel obstruction or pathologic ascites Abdominal wall: Unremarkable Abdominal bones: No aggressive appearing osseous abnormality Bladder: Unremarkable Reproductive organs: Heterogeneous enhancement and diffusion signal within the prostate, similar compared to prior imaging. This is not well assessed on this study, consider PSA correlation if indicated. Rectum: Unremarkable Vessels and lymph nodes: No aneurysmal vessel identified. No lymphadenopathy by size criteria. Right orchectomy changes. Pelvic wall: Postsurgical changes Pelvic Bones: No suspicious focal enhancement. IMPRESSION: No definite metastatic disease is seen. Other findings above. Dictated by: Flaco Mcarthur M.D. on 09/01/2024 at 8:22 Approved by: Flaco Mcarthur M.D. on 09/01/2024 at 8:30
== END ==
PROVIDERS: PCP Internal Medicine; Referring Provider Internal Medicine; Visit Provider Internal Medicine
DX: C63.7 Malignant neoplasm of other specified male genital organs (principal); C62.11 Malignant neoplasm of descended right testis; K76.0 Fatty (change of) liver, not elsewhere classified; R91.1 Solitary pulmonary nodule
CPT/HCPCS: 71250; 72197; 74183; A9579

== ENCOUNTER → 2024-11-25 14:07 | Outpatient (CLI) | payer OTHER, SELFPAY ==
--- NOTE | 2024-11-25 14:08 | DI.US.S_ITS ---
PROCEDURE: US PERIPH VENOUS LOW EXTREM RT INDICATIONS: PAIN TECHNIQUE: Real-time imaging, as well as color and pulse Doppler interrogation, were performed of the lower extremity deep veins from the inguinal ligament to the popliteal fossa, with documentation of the visualized calf veins. COMPARISON: No prior ultrasound Doppler of the right lower extremity. FINDINGS: Positive for deep vein thrombosis with noncompressibility and absent Doppler flow in the distal femoral vein into the popliteal vein, trifurcation with the peroneal vein , posterior tibial vein occluded. Common femoral vein is patent. IMPRESSION: Extensive acute deep vein thromboses throughout the right lower extremity as discussed above from the femoral vein into the lower leg calf veins. Follow-up is needed. Results called to the office of Freddy Greenberg MD 11/25/2024 at 15:11. Dictated by: Brent Aragon M.D. on 11/25/2024 at 15:03 Approved by: Brent Aragon M.D. on 11/25/2024 at 15:21
== END ==
PROVIDERS: Family Provider Internal Medicine; PCP Internal Medicine; Referring Provider Internal Medicine; Visit Provider Internal Medicine
DX: I82.411 Acute embolism and thrombosis of right femoral vein (principal); I82.431 Acute embolism and thrombosis of right popliteal vein; I82.441 Acute embolism and thrombosis of right tibial vein
CPT/HCPCS: 93971

== ENCOUNTER 2024-12-09 08:15 | Outpatient (RCR) | payer OTHER, SELFPAY ==
--- NOTE | 2024-09-23 20:48 | PT.OIE ---
Current Diagnoses Pain in left shoulder (09/23/24) Past Medical History (Last Updated 08/17/24 @ 10:52 by Freddy Greenberg MD) Chicken pox (~1974) Current use of roasterman anticoagulation History of adenomatous polyp of colon Left leg DVT Low testosterone Mumps (~1974) Pulmonary embolism (~1988) Pulmonary embolism (~11/28/22) Rosacea (~2011) Testicular cancer (~1988) Past Surgical History (Last Updated 08/17/24 @ 10:52 by Freddy Greenberg MD) Anesthesia History of orchiectomy (~1988) History of surgery (~1988) History of vasectomy (~2014) [place] teeth removed (02/20/24) Visit Care Team Role Provider Type Freddy Greenberg MD Attending Provider Physician Family Provider Primary Care Provider Referring Provider Specialty: Internal Medicine Address: [address] [place] [address], [address], [facility] Email: [email or web address] Physical Therapy Initial Evaluation PT-OP-A Visit Information Start: 09/21/24 13:02 Freq: Status: Active Protocol: Document 09/21/24 13:03 MANAGER CONVENTION (Rec: 09/21/24 13:55 MANAGER CONVENTION Laptop) Out-Patient Physical Therapy Visit Information Visit Information Visit Type Initial Evaluation Visit Start Time 13:03 Visit Stop Time 13:45 Visit Number 1 Number of METER CALIBRATOR Visits 0 Evaluation Information Evaluation Date 09/21/24 Precautions Precautions N/A PT-OP-B Current Condition Start: 09/21/24 13:02 Freq: Status: Active Protocol: Document 09/21/24 13:03 MANAGER CONVENTION (Rec: 09/21/24 13:55 MANAGER CONVENTION Laptop) Current Condition History of Current Condition Onset Date ~June of 2024 Current Complaints B shoulder pain History of 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 For a few months I've been getting rotator cuff pain R worse than L and is affecting my striking. Fights L handed, R strike hurts worse. Pain up to 1-3/10 with a catch and affects his fluidity of movement. Side and belly sleeper and is affecting my sleep. It's affecting my ability to train and progress. I was planning to get certified in October but am now pushing it to December. Reports no history of shoulder injury. Has discomfort in L neck while rotating to L. No pain at rest, has pain when leaning on shoulder. Treatment Goals Patient/Caregiver To improve pain in B shoulders to be able to train at a Goals level that allows him to do certification for phil newberry and sleep at night. PT-OP-C Subjective Start: 09/21/24 13:02 Freq: Status: Active Protocol: Document 09/21/24 13:03 MANAGER CONVENTION (Rec: 09/23/24 20:46 MANAGER CONVENTION Laptop) Patient Questionnaires Quick Dash- Upper Extremity Quick Dash UE Score 27.27% PT-OP-F Manual Assessment Start: 09/21/24 13:02 Freq: Status: Active Protocol: Document 09/21/24 13:03 MANAGER CONVENTION (Rec: 09/21/24 13:55 MANAGER CONVENTION Laptop) Manual Assessments Soft Tissue Assessment Soft Tissue Mobility Decreased soft tissue mobility to B pec majors, L more Assessment impaired than R Joint Mobility Assessment Joint Mobility Slight decreased capsule mobility L shoulder superiorly Assessment PT-OP-K Range of Motion Start: 09/21/24 13:02 Freq: Status: Active Protocol: Document 09/21/24 13:03 MANAGER CONVENTION (Rec: 09/21/24 13:55 MANAGER CONVENTION Laptop) Shoulder Goniometric Range of Motion Shoulder ROM Limitations Shoulder ROM Pain Limitations Comments R flex 130-155 degrees painful L flex 170 degrees pain free R abd 103-131 degrees painful L abd 180 degrees, 90-115 painful R ER 64 degrees pain free L ER 75 degrees pain free R IR functional T7 L IR functional T5 PT-OP-M Strength Start: 09/21/24 13:02 Freq: Status: Active Protocol: Document 09/21/24 13:03 MANAGER CONVENTION (Rec: 09/21/24 13:55 MANAGER CONVENTION Laptop) Shoulder Strength Shoulder Manual Muscle Testing L Flexion 5 Normal Extension 4+ Good+ Abduction (C5) 4+ Good+ External Rotation 4+ Good+ Internal Rotation 5 Normal Comments painful ext, abd R Flexion 4+ Good+ Extension 5 Normal Abduction (C5) 4+ Good+ External Rotation 4 Good Internal Rotation 5 Normal Comments pain with abd, ER Elbow/Forearm Strength Elbow and Forearm Manual Muscle Testing L Flexion (C6) 5 Normal Extension (C7) 5 Normal Comments slight pain elbow ext R Flexion (C6) 5 Normal Extension (C7) 5 Normal PT-OP-T Assessment and Plan Start: 09/21/24 13:02 Freq: Status: Active Protocol: Document 09/21/24 13:03 MANAGER CONVENTION (Rec: 09/21/24 13:55 MANAGER CONVENTION Laptop) Physical Therapy Assessment Rehab Potential Rehabilitation Good Potential Evaluation Complexity Number of Personal 1-2 Factors/ Comorbidities Number of Body 1-2 Systems Impaired Clinical Stable Presentation at Evaluation Impairments Impairments Activity Tolerance,Functional Activities,Pain,ROM,Soft Tissue Mobility,Strength Goals 2 Impairment Strength Short Term Goal (STG Pt will demonstrate improved R shoulder ER strength ) from 4 to 4+ MMT without pain to improve function STG Duration 6 weeks Body Design Checker Goal (LTG) Pt will demonstrate improved B shoulder strength to 5/5 pain free MMT to improve function and return to sport LTG Duration 12 weeks 1 Impairment ROM Short Term Goal (STG Pt will demonstrate active R shoulder flex to 150 ) degrees without pain to improve function. STG Duration 6 weeks Body Design Checker Goal (LTG) Pt will demonstrate active R shoulder flex to 170 degrees without pain to improve function. LTG Duration 12 weeks Assessment Summary Assessment Pt presents with B shoulder pain R>L with functional activities such as jiu jitsu and krav rohith, especially while punching and jabbing with RUE for krav rohith and demonstrates painful and decreased B shoulder ROM in R> L with positive B impingement test painful arc, and decreased B shoulder strength. Pt will benefit from skilled PT intervention to address deficits and improve functional mobility. Physical Therapy Plan Frequency and Duration Frequency of 2x/Week Treatment Duration of 12 treatment (weeks) Plan of Care Start 09/21/24 Date Plan of Care End 12/14/24 Date Therapeutic Interventions Therapeutic Home Exercise Program,Joint Mobilizations,Manual Interventions Therapy,Neuromuscular Re-education,Soft Tissue Mobilization,Taping,Therapeutic Activities,Therapeutic Exercises Modalities Cold Pack/Ice Massage,Hot Packs,Ultrasound Next Visit Focus/Plan Next Note Type Treatment Note Next Visit Plan Special tests of shoulders including AC joint dysfunction and impingement tests, test serratus ant with push up plus, HEP
--- NOTE | 2024-09-23 20:48 | PT.OPPOC ---
Physical, Occupational & Speech Therapy At [facility] Current Diagnoses Pain in left shoulder (09/23/24) Visit Care Team Role Provider Type Freddy Greenberg MD Attending Provider Physician Family Provider Primary Care Provider Referring Provider Specialty: Internal Medicine Address: [address] [place] [address], [facility] [address], [place], [address] Email: [email or web address] Plan Of Care PT-OP-B Current Condition Start: 09/21/24 13:02 Freq: Status: Active Protocol: Document 09/21/24 13:03 HOUSE CLEANER SUPERVISOR (Rec: 09/21/24 13:55 HOUSE CLEANER SUPERVISOR Laptop) Current Condition History of Current Condition Onset Date ~June of 2024 Current Complaints B shoulder pain History of 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 For a few months I've been getting rotator cuff pain R worse than L and is affecting my striking. Fights L handed, R strike hurts worse. Pain up to 1-3/10 with a catch and affects his fluidity of movement. Side and belly sleeper and is affecting my sleep. It's affecting my ability to train and progress. I was planning to get certified in October but am now pushing it to December. Reports no history of shoulder injury. Has discomfort in L neck while rotating to L. No pain at rest, has pain when leaning on shoulder. Treatment Goals Patient/Caregiver To improve pain in B shoulders to be able to train at a Goals level that allows him to do certification for krav rohith and sleep at night. PT-OP-T Assessment and Plan Start: 09/21/24 13:02 Freq: Status: Active Protocol: Document 09/21/24 13:03 HOUSE CLEANER SUPERVISOR (Rec: 09/21/24 13:55 HOUSE CLEANER SUPERVISOR Laptop) Physical Therapy Assessment Rehab Potential Rehabilitation Good Potential Evaluation Complexity Number of Personal 1-2 Factors/ Comorbidities Number of Body 1-2 Systems Impaired Clinical Stable Presentation at Evaluation Impairments Impairments Activity Tolerance,Functional Activities,Pain,ROM,Soft Tissue Mobility,Strength Goals 2 Impairment Strength Short Term Goal (STG Pt will demonstrate improved R shoulder ER strength ) from 4 to 4+ MMT without pain to improve function STG Duration 6 weeks Education Program Specialist Goal (LTG) Pt will demonstrate improved B shoulder strength to 5/5 pain free MMT to improve function and return to sport LTG Duration 12 weeks 1 Impairment ROM Short Term Goal (STG Pt will demonstrate active R shoulder flex to 150 ) degrees without pain to improve function. STG Duration 6 weeks Chcf Goal (LTG) Pt will demonstrate active R shoulder flex to 170 degrees without pain to improve function. LTG Duration 12 weeks Assessment Summary Assessment Pt presents with B shoulder pain R>L with functional activities such as jiu jitsu and krav rohith, especially while punching and jabbing with RUE for krav rohith and demonstrates painful and decreased B shoulder ROM in R> L with positive B impingement test painful arc, and decreased B shoulder strength. Pt will benefit from skilled PT intervention to address deficits and improve functional mobility. Physical Therapy Plan Frequency and Duration Frequency of 2x/Week Treatment Duration of 12 treatment (weeks) Plan of Care Start 09/21/24 Date Plan of Care End 12/14/24 Date Therapeutic Interventions Therapeutic Home Exercise Program,Joint Mobilizations,Manual Interventions Therapy,Neuromuscular Re-education,Soft Tissue Mobilization,Taping,Therapeutic Activities,Therapeutic Exercises Modalities Cold Pack/Ice Massage,Hot Packs,Ultrasound Next Visit Focus/Plan Next Note Type Treatment Note Next Visit Plan Special tests of shoulders including AC joint dysfunction and impingement tests, test serratus ant with push up plus, HEP Plan of Care Dates Plan of Care Start Date 09/21/24 Plan of Care End Date 12/14/24 Electronically Signed by: Estelita Alvarenga PT 09/23/244 If you are in agreement with this Plan of Care, please return a signed and dated copy. I have reviewed this Plan of Care and certify that the skilled therapy services above are required to meet the patient?s needs. Physician Signature Date Printed Name and Credentials Clinical Instructor Signature Printed Name and Credentials
--- NOTE | 2024-09-23 21:04 | PT.OTN ---
Current Diagnoses Pain in left shoulder (09/23/24) Physical Therapy Treatment Note PT-OP-A Visit Information Start: 09/21/24 13:02 Freq: Status: Active Protocol: Document 09/23/24 20:49 HARNESS INSPECTOR (Rec: 09/23/24 21:04 HARNESS INSPECTOR Laptop) Out-Patient Physical Therapy Visit Information Visit Information Visit Type Treatment Note Visit Start Time 13:02 Visit Stop Time 13:50 Visit Number 2 Number of ROUTE MANAGER Visits 0 Evaluation Information Evaluation Date 09/21/24 Precautions Precautions N/A PT-OP-B Current Condition Start: 09/21/24 13:02 Freq: Status: Active Protocol: Document 09/21/24 13:03 HARNESS INSPECTOR (Rec: 09/21/24 13:55 HARNESS INSPECTOR Laptop) Current Condition History of Current Condition Onset Date ~June of 2024 Current Complaints B shoulder pain 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 For a few months I've been getting rotator cuff pain R worse than L and is affecting my striking. Fights L handed, R strike hurts worse. Pain up to 1-3/10 with a catch and affects his fluidity of movement. Side and belly sleeper and is affecting my sleep. It's affecting my ability to train and progress. I was planning to get certified in October but am now pushing it to December. Reports no history of shoulder injury. Has discomfort in L neck while rotating to L. No pain at rest, has pain when leaning on shoulder. Treatment Goals Patient/Caregiver To improve pain in B shoulders to be able to train at a Goals level that allows him to do certification for krav rohith and sleep at night. PT-OP-C Subjective Start: 09/21/24 13:02 Freq: Status: Active Protocol: Document 09/23/24 20:49 HARNESS INSPECTOR (Rec: 09/23/24 21:04 HARNESS INSPECTOR Laptop) OP-PT Subjective Patient Comments Patient Comments Pt reports no changes since eval, pain at rest at 0 PT-OP-F Manual Assessment Start: 09/21/24 13:02 Freq: Status: Active Protocol: Document 09/21/24 13:03 HARNESS INSPECTOR (Rec: 09/21/24 13:55 HARNESS INSPECTOR Laptop) Manual Assessments Soft Tissue Assessment Soft Tissue Mobility Decreased soft tissue mobility to B pec majors, L more Assessment impaired than R Joint Mobility Assessment Joint Mobility Slight decreased capsule mobility L shoulder superiorly Assessment PT-OP-K Range of Motion Start: 09/21/24 13:02 Freq: Status: Active Protocol: Document 09/21/24 13:03 HARNESS INSPECTOR (Rec: 09/21/24 13:55 HARNESS INSPECTOR Laptop) Shoulder Goniometric Range of Motion Shoulder ROM Limitations Shoulder ROM Pain Limitations Comments R flex 130-155 degrees painful L flex 170 degrees pain free R abd 103-131 degrees painful L abd 180 degrees, 90-115 painful R ER 64 degrees pain free L ER 75 degrees pain free R IR functional T7 L IR functional T5 PT-OP-M Strength Start: 09/21/24 13:02 Freq: Status: Active Protocol: Document 09/21/24 13:03 HARNESS INSPECTOR (Rec: 09/21/24 13:55 HARNESS INSPECTOR Laptop) Shoulder Strength Shoulder Manual Muscle Testing L Flexion 5 Normal Extension 4+ Good+ Abduction (C5) 4+ Good+ External Rotation 4+ Good+ Internal Rotation 5 Normal Comments painful ext, abd R Flexion 4+ Good+ Extension 5 Normal Abduction (C5) 4+ Good+ External Rotation 4 Good Internal Rotation 5 Normal Comments pain with abd, ER Elbow/Forearm Strength Elbow and Forearm Manual Muscle Testing L Flexion (C6) 5 Normal Extension (C7) 5 Normal Comments slight pain elbow ext R Flexion (C6) 5 Normal Extension (C7) 5 Normal PT-OP-Q Treatments Start: 09/21/24 13:02 Freq: Status: Active Protocol: Document 09/23/24 20:49 HARNESS INSPECTOR (Rec: 09/23/24 21:04 HARNESS INSPECTOR Laptop) Therapeutic Exercises Supine Exercises Serratus Punches Supine Exercise Name 1. 8lb dumbbell 2. 10lb dumbbell Side bilateral Reps/Minutes x10 each weight Comments performs without pain Prone Exercises Push Up Plus Side bilateral Reps/Minutes 10x2 Comments Added to HEP, pain free Standing Exercises Scaption Side bilateral Resistance 5lb and 8lb dumbbell Reps/Minutes 10x2 Comments RUE to 90 to stay in pain free, LUE full range pain free, added to HEP Rows Side bilateral Resistance Highest level TB Reps/Minutes 10x2 Comments Pain free, added to HEP with allen weights at gym, edu on pain free only Shoulder IR Side bilateral Resistance L1 TB Equipment Used towel roll Reps/Minutes 10x2 each side Comments Pain free, added to HEP Shoulder ER Side bilateral Resistance L1 TB Equipment Used towel roll Reps/Minutes 10x2 each side Comments Pain free, added to HEP Therapeutic Activity Therapeutic Activity Anatomy Edu Reps/Minutes 15 mins Comments Educated with model and google pictures anatomy of shoulder and biomechanics for improved understanding of dysfunction and exercises PT-OP-T Assessment and Plan Start: 09/21/24 13:02 Freq: Status: Active Protocol: Document 09/23/24 20:49 HARNESS INSPECTOR (Rec: 09/23/24 21:04 HARNESS INSPECTOR Laptop) Physical Therapy Assessment Goals 2 Impairment Strength Short Term Goal (STG Pt will demonstrate improved R shoulder ER strength ) from 4 to 4+ MMT without pain to improve function STG Duration 6 weeks Longterm Goal (LTG) Pt will demonstrate improved B shoulder strength to 5/5 pain free MMT to improve function and return to sport LTG Duration 12 weeks Assessment Summary Assessment Pt with positive L mooney lety impingement test, positive B lift off test to indicate subscapularis involvement as well as suprapinatus. Pt given HEP and educated on strengthening in pain free range, tolerated L1 TB for B IR and ER exercises. Physical Therapy Plan Frequency and Duration Frequency of 2x/Week Treatment Duration of 12 treatment (weeks) Plan of Care Start 09/21/24 Date Plan of Care End 12/14/24 Date Therapeutic Interventions Therapeutic Home Exercise Program,Joint Mobilizations,Manual Interventions Therapy,Neuromuscular Re-education,Soft Tissue Mobilization,Taping,Therapeutic Activities,Therapeutic Exercises Modalities Cold Pack/Ice Massage,Hot Packs,Ultrasound Next Visit Focus/Plan Next Note Type Treatment Note Next Visit Plan Review HEP, impingement treatment
--- NOTE | 2024-10-06 12:54 | PT.OTN ---
Current Diagnoses Pain in left shoulder (10/06/24) Physical Therapy Treatment Note PT-OP-A Visit Information Start: 09/21/24 13:02 Freq: Status: Active Protocol: Document 10/06/24 11:35 COOLER WORKER (Rec: 10/06/24 12:54 COOLER WORKER Laptop) Out-Patient Physical Therapy Visit Information Visit Information Visit Type Treatment Note Visit Start Time 11:35 Visit Stop Time 12:25 Visit Number 3 Number of CHIEF OF SURGERY Visits 0 PT-OP-B Current Condition Start: 09/21/24 13:02 Freq: Status: Active Protocol: Document 09/21/24 13:03 COOLER WORKER (Rec: 09/21/24 13:55 COOLER WORKER Laptop) Current Condition History of Current Condition Onset Date ~June of 2024 Current Complaints B shoulder pain 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 For a few months I've been getting rotator cuff pain R worse than L and is affecting my striking. Fights L handed, R strike hurts worse. Pain up to 1-3/10 with a catch and affects his fluidity of movement. Side and belly sleeper and is affecting my sleep. It's affecting my ability to train and progress. I was planning to get certified in October but am now pushing it to December. Reports no history of shoulder injury. Has discomfort in L neck while rotating to L. No pain at rest, has pain when leaning on shoulder. Treatment Goals Patient/Caregiver To improve pain in B shoulders to be able to train at a Goals level that allows him to do certification for krav rohith and sleep at night. PT-OP-C Subjective Start: 09/21/24 13:02 Freq: Status: Active Protocol: Document 10/06/24 11:35 COOLER WORKER (Rec: 10/06/24 12:54 COOLER WORKER Laptop) OP-PT Subjective Patient Comments Patient Comments Pt presents with log of exercises and pain over past 2 weeks since last PT session (unable to book sooner session d/t no openings in PT schedules) and reports pain in B shoulders R>L has gotten worse with exercises . Pt also reports he was leaning forward to tie shoes and sustained a low back injury which has affected his ability to perform HEP. PT-OP-F Manual Assessment Start: 09/21/24 13:02 Freq: Status: Active Protocol: Document 09/21/24 13:03 COOLER WORKER (Rec: 09/21/24 13:55 COOLER WORKER Laptop) Manual Assessments Soft Tissue Assessment Soft Tissue Mobility Decreased soft tissue mobility to B pec majors, L more Assessment impaired than R Joint Mobility Assessment Joint Mobility Slight decreased capsule mobility L shoulder superiorly Assessment PT-OP-K Range of Motion Start: 09/21/24 13:02 Freq: Status: Active Protocol: Document 09/21/24 13:03 COOLER WORKER (Rec: 09/21/24 13:55 COOLER WORKER Laptop) Shoulder Goniometric Range of Motion Shoulder ROM Limitations Shoulder ROM Pain Limitations Comments R flex 130-155 degrees painful L flex 170 degrees pain free R abd 103-131 degrees painful L abd 180 degrees, 90-115 painful R ER 64 degrees pain free L ER 75 degrees pain free R IR functional T7 L IR functional T5 PT-OP-M Strength Start: 09/21/24 13:02 Freq: Status: Active Protocol: Document 09/21/24 13:03 COOLER WORKER (Rec: 09/21/24 13:55 COOLER WORKER Laptop) Shoulder Strength Shoulder Manual Muscle Testing L Flexion 5 Normal Extension 4+ Good+ Abduction (C5) 4+ Good+ External Rotation 4+ Good+ Internal Rotation 5 Normal Comments painful ext, abd R Flexion 4+ Good+ Extension 5 Normal Abduction (C5) 4+ Good+ External Rotation 4 Good Internal Rotation 5 Normal Comments pain with abd, ER Elbow/Forearm Strength Elbow and Forearm Manual Muscle Testing L Flexion (C6) 5 Normal Extension (C7) 5 Normal Comments slight pain elbow ext R Flexion (C6) 5 Normal Extension (C7) 5 Normal PT-OP-Q Treatments Start: 09/21/24 13:02 Freq: Status: Active Protocol: Document 10/06/24 11:35 COOLER WORKER (Rec: 10/06/24 12:54 COOLER WORKER Laptop) Therapeutic Exercises Supine Exercises Foam Roller Supine Exercise Name Shoulder Abd to point of pain (R ~90 degrees) Side bilateral Equipment Used full FR Reps/Minutes x10 Comments VC for scap depression, increased pain and discont Pec Stretch Supine Exercise Name Passive B pec stretch on full foam roller Side bilateral Reps/Minutes 5 mins Comments Added to HEP, pt will buy full foam roller Manual Therapy Treatment Consent Patient gave verbal Yes consent for manual treatment Soft Tissue Mobilization Pec Body Location R pec Mobilization Type Rolling,Sustained Pressure Intensity/Depth Deep Body Position Supine Comments at pec origin on humeral and muscle belly Bicep Body Location R biceps origin Mobilization Type Cross-Friction Intensity/Depth Moderate Body Position Supine Comments with passive ER/IR and abd/add Other Other Manual Iontophoresis patch added to R biceps tendon and L Treatments infraspinatus PT-OP-T Assessment and Plan Start: 09/21/24 13:02 Freq: Status: Active Protocol: Document 10/06/24 11:35 COOLER WORKER (Rec: 10/06/24 12:54 COOLER WORKER Laptop) Physical Therapy Assessment Impairments Impairments Activity Tolerance,Functional Activities,Pain,ROM,Soft Tissue Mobility,Strength Goals 2 Impairment Strength Short Term Goal (STG Pt will demonstrate improved R shoulder ER strength ) from 4 to 4+ MMT without pain to improve function STG Duration 6 weeks Snf Goal (LTG) Pt will demonstrate improved B shoulder strength to 5/5 pain free MMT to improve function and return to sport LTG Duration 12 weeks 1 Impairment ROM Short Term Goal (STG Pt will demonstrate active R shoulder flex to 150 ) degrees without pain to improve function. STG Duration 6 weeks Child Welfare Specialist Goal (LTG) Pt will demonstrate active R shoulder flex to 170 degrees without pain to improve function. LTG Duration 12 weeks Assessment Summary Assessment Focus this session was on pain control: TFM performed to R biceps tendon, B pec stretch which pt reports feels great and non-painful and plans to buy a full foam roller, and ionto patches added to R biceps tendon and L infraspinatus which was exacerbated during B shoulder abd on foam roller. Pt instructed to hold on HEP and perform pec stretch on foam roller only until next session. Physical Therapy Plan Frequency and Duration Frequency of 2x/Week Treatment Duration of 12 treatment (weeks) Plan of Care Start 09/21/24 Date Plan of Care End 12/14/24 Date Therapeutic Interventions Therapeutic Home Exercise Program,Joint Mobilizations,Manual Interventions Therapy,Neuromuscular Re-education,Soft Tissue Mobilization,Taping,Therapeutic Activities,Therapeutic Exercises Modalities Cold Pack/Ice Massage,Hot Packs,Ultrasound Next Visit Focus/Plan Next Note Type Treatment Note Next Visit Plan impingement treatment to B shoulders, ionto again as needed
--- NOTE | 2024-10-08 13:00 | PT.OTN ---
Current Diagnoses Pain in left shoulder (10/08/24) Physical Therapy Treatment Note PT-OP-A Visit Information Start: 09/21/24 13:02 Freq: Status: Active Protocol: Document 10/08/24 10:07 AB (Rec: 10/08/24 13:00 AB Laptop) Out-Patient Physical Therapy Visit Information Visit Information Visit Type Treatment Note Visit Start Time 10:07 Visit Stop Time 10:38 Visit Number 4 Number of SCUDDING INSPECTOR Visits 1 Evaluation Information Evaluation Date 09/21/24 PT-OP-B Current Condition Start: 09/21/24 13:02 Freq: Status: Active Protocol: Document 09/21/24 13:03 METER INSTALLER (Rec: 09/21/24 13:55 METER INSTALLER Laptop) Current Condition History of Current Condition Onset Date ~June of 2024 Current Complaints B shoulder pain History 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 For a few months I've been getting rotator cuff pain R worse than L and is affecting my striking. Fights L handed, R strike hurts worse. Pain up to 1-3/10 with a catch and affects his fluidity of movement. Side and belly sleeper and is affecting my sleep. It's affecting my ability to train and progress. I was planning to get certified in October but am now pushing it to December. Reports no history of shoulder injury. Has discomfort in L neck while rotating to L. No pain at rest, has pain when leaning on shoulder. Treatment Goals Patient/Caregiver To improve pain in B shoulders to be able to train at a Goals level that allows him to do certification for krav rohith and sleep at night. PT-OP-C Subjective Start: 09/21/24 13:02 Freq: Status: Active Protocol: Document 10/08/24 10:07 AB (Rec: 10/08/24 13:00 AB Laptop) OP-PT Subjective Patient Comments Patient Comments Original info lost [employer] closed. AROM R shoulder flexion into 140's start of session. Patient reports discomfort at ~90 deg. PT-OP-F Manual Assessment Start: 09/21/24 13:02 Freq: Status: Active Protocol: Document 09/21/24 13:03 METER INSTALLER (Rec: 09/21/24 13:55 METER INSTALLER Laptop) Manual Assessments Soft Tissue Assessment Soft Tissue Mobility Decreased soft tissue mobility to B pec majors, L more Assessment impaired than R Joint Mobility Assessment Joint Mobility Slight decreased capsule mobility L shoulder superiorly Assessment PT-OP-K Range of Motion Start: 09/21/24 13:02 Freq: Status: Active Protocol: Document 09/21/24 13:03 METER INSTALLER (Rec: 09/21/24 13:55 METER INSTALLER Laptop) Shoulder Goniometric Range of Motion Shoulder ROM Limitations Shoulder ROM Pain Limitations Comments R flex 130-155 degrees painful L flex 170 degrees pain free R abd 103-131 degrees painful L abd 180 degrees, 90-115 painful R ER 64 degrees pain free L ER 75 degrees pain free R IR functional T7 L IR functional T5 PT-OP-M Strength Start: 09/21/24 13:02 Freq: Status: Active Protocol: Document 09/21/24 13:03 METER INSTALLER (Rec: 09/21/24 13:55 METER INSTALLER Laptop) Shoulder Strength Shoulder Manual Muscle Testing L Flexion 5 Normal Extension 4+ Good+ Abduction (C5) 4+ Good+ External Rotation 4+ Good+ Internal Rotation 5 Normal Comments painful ext, abd R Flexion 4+ Good+ Extension 5 Normal Abduction (C5) 4+ Good+ External Rotation 4 Good Internal Rotation 5 Normal Comments pain with abd, ER Elbow/Forearm Strength Elbow and Forearm Manual Muscle Testing L Flexion (C6) 5 Normal Extension (C7) 5 Normal Comments slight pain elbow ext R Flexion (C6) 5 Normal Extension (C7) 5 Normal PT-OP-Q Treatments Start: 09/21/24 13:02 Freq: Status: Active Protocol: Document 10/08/24 10:07 AB (Rec: 10/08/24 13:00 AB Laptop) Therapeutic Exercises Supine Exercises supine shoulder flexion Supine Exercise Name AROM with 10 sec hold for gravity assisted stretch Side bilateral Reps/Minutes X 5 Comments verbal cues Pt ed to perform twice a day Sidelying Exercises shoulder ER AROM Side left Reps/Minutes X10 Comments verbal cues to perform in pain free range Manual Therapy Treatment Consent Patient gave verbal Yes consent for manual treatment Soft Tissue Mobilization post cuff Body Location bilateral Mobilization Type Cross-Friction,Rolling Intensity/Depth Moderate Body Position Sidelying UT,levator scap Body Location bilateral Mobilization Type Cross-Friction,Sustained Pressure Intensity/Depth Deep Body Position Sitting Pec Body Location b pec Mobilization Type Rolling,Sustained Pressure Intensity/Depth Moderate Body Position Hooklying Bicep Body Location R biceps origin Mobilization Type Cross-Friction Intensity/Depth Moderate Body Position Supine Comments with passive ER/IR and abd/add Joint Mobilizations AC and SC Joint caudal bilateral Grade III Body Position Sidelying Reps/Duration X 10 scap Joint bilateral Direction into dep and add Grade IV Body Position Sidelying Reps/Duration X 10 each direction each UE GH Joint Bilateral AP and inf Grade IV Body Position Hooklying Reps/Duration X 10 X 2 each direction each mobilzation PT-OP-T Assessment and Plan Start: 09/21/24 13:02 Freq: Status: Active Protocol: Document 10/08/24 10:07 AB (Rec: 10/08/24 13:00 AB Laptop) Physical Therapy Assessment Assessment Summary Assessment AROM right shoulder flexion into 150's end of session. Note lost in [employer] with exact measurement. Physical Therapy Plan Frequency and Duration Frequency of 2x/Week Treatment Duration of 12 treatment (weeks) Plan of Care Start 09/21/24 Date Plan of Care End 12/14/24 Date Next Visit Focus/Plan Next Note Type Treatment Note Next Visit Plan impingement treatment to B shoulders, ionto again as needed
--- NOTE | 2024-10-12 14:54 | PT.OTN ---
Current Diagnoses Pain in left shoulder (10/12/24) Physical Therapy Treatment Note PT-OP-A Visit Information Start: 09/21/24 13:02 Freq: Status: Active Protocol: Document 10/12/24 13:49 AB (Rec: 10/12/24 14:53 AB Laptop) Out-Patient Physical Therapy Visit Information Visit Information Visit Type Treatment Note Visit Start Time 13:49 Visit Stop Time 14:39 Visit Number 5 Number of BAGGAGE AGENT Visits 2 Evaluation Information Evaluation Date 09/21/24 PT-OP-B Current Condition Start: 09/21/24 13:02 Freq: Status: Active Protocol: Document 09/21/24 13:03 BULK STATION OPERATOR (Rec: 09/21/24 13:55 BULK STATION OPERATOR Laptop) Current Condition History of Current Condition Onset Date ~June of 2024 Current Complaints B shoulder pain 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 For a few months I've been getting rotator cuff pain R worse than L and is affecting my striking. Fights L handed, R strike hurts worse. Pain up to 1-3/10 with a catch and affects his fluidity of movement. Side and belly sleeper and is affecting my sleep. It's affecting my ability to train and progress. I was planning to get certified in October but am now pushing it to December. Reports no history of shoulder injury. Has discomfort in L neck while rotating to L. No pain at rest, has pain when leaning on shoulder. Treatment Goals Patient/Caregiver To improve pain in B shoulders to be able to train at a Goals level that allows him to do certification for krav rohith and sleep at night. PT-OP-C Subjective Start: 09/21/24 13:02 Freq: Status: Active Protocol: Document 10/12/24 13:49 AB (Rec: 10/12/24 14:53 AB Laptop) OP-PT Subjective Patient Comments Patient Comments Patient rates shoulder pain 0/10 at rest, with activity 3/10 raising UE's overhead and positioning as if to throw a ball. Patient reports protraction hurts/ punching. AROM R shoulder flexion AROM 149 deg L shoulder 154 deg PT-OP-F Manual Assessment Start: 09/21/24 13:02 Freq: Status: Active Protocol: Document 09/21/24 13:03 BULK STATION OPERATOR (Rec: 09/21/24 13:55 BULK STATION OPERATOR Laptop) Manual Assessments Soft Tissue Assessment Soft Tissue Mobility Decreased soft tissue mobility to B pec majors, L more Assessment impaired than R Joint Mobility Assessment Joint Mobility Slight decreased capsule mobility L shoulder superiorly Assessment PT-OP-K Range of Motion Start: 09/21/24 13:02 Freq: Status: Active Protocol: Document 09/21/24 13:03 BULK STATION OPERATOR (Rec: 09/21/24 13:55 BULK STATION OPERATOR Laptop) Shoulder Goniometric Range of Motion Shoulder ROM Limitations Shoulder ROM Pain Limitations Comments R flex 130-155 degrees painful L flex 170 degrees pain free R abd 103-131 degrees painful L abd 180 degrees, 90-115 painful R ER 64 degrees pain free L ER 75 degrees pain free R IR functional T7 L IR functional T5 PT-OP-M Strength Start: 09/21/24 13:02 Freq: Status: Active Protocol: Document 09/21/24 13:03 BULK STATION OPERATOR (Rec: 09/21/24 13:55 BULK STATION OPERATOR Laptop) Shoulder Strength Shoulder Manual Muscle Testing L Flexion 5 Normal Extension 4+ Good+ Abduction (C5) 4+ Good+ External Rotation 4+ Good+ Internal Rotation 5 Normal Comments painful ext, abd R Flexion 4+ Good+ Extension 5 Normal Abduction (C5) 4+ Good+ External Rotation 4 Good Internal Rotation 5 Normal Comments pain with abd, ER Elbow/Forearm Strength Elbow and Forearm Manual Muscle Testing L Flexion (C6) 5 Normal Extension (C7) 5 Normal Comments slight pain elbow ext R Flexion (C6) 5 Normal Extension (C7) 5 Normal PT-OP-Q Treatments Start: 09/21/24 13:02 Freq: Status: Active Protocol: Document 10/12/24 13:49 AB (Rec: 10/12/24 14:53 AB Laptop) Therapeutic Exercises Supine Exercises Foam Roller Supine Exercise Name 1.pec stretch 2. alt UE flexion Side bilateral Equipment Used 1 Reps/Minutes 2min Comments Verbal cues both to HEP Serratus Punches Supine Exercise Name 10lb dumbbell HEP Side bilateral Reps/Minutes x10 each weight Comments performs without pain Prone Exercises Push Up Plus Prone Exercise Name review next session possibly perform in counter plank position Standing Exercises Rows Side bilateral Resistance Highest level TB and level 4 X 10 each Reps/Minutes 10x2 Shoulder ER Standing Exercise isometric reactive shoulder ER ( post trial of Name discomfort with isotonic R Side bilateral Equipment Used level one band Reps/Minutes X 15 Comments verbal and visual cues Manual Therapy Treatment Consent Patient gave verbal Yes consent for manual treatment Soft Tissue Mobilization post cuff Body Location bilateral Mobilization Type Cross-Friction,Rolling Intensity/Depth Moderate Body Position Sidelying UT,levator scap Body Location bilateral Mobilization Type Cross-Friction,Sustained Pressure Intensity/Depth Deep Body Position Sitting Pec Body Location b pec Mobilization Type Rolling,Sustained Pressure Intensity/Depth Moderate Body Position Hooklying Bicep Body Location R biceps origin Mobilization Type Cross-Friction Intensity/Depth Moderate Body Position Supine Comments with passive ER/IR and abd/add Joint Mobilizations scap Joint bilateral Direction into dep and add Grade IV Body Position Sidelying Reps/Duration X 10 each direction each UE GH Joint Bilateral AP and inf Grade IV Body Position Hooklying Reps/Duration X 10 X 2 each direction each mobilzation PT-OP-T Assessment and Plan Start: 09/21/24 13:02 Freq: Status: Active Protocol: Document 10/12/24 13:49 AB (Rec: 10/12/24 14:53 AB Laptop) Physical Therapy Assessment Assessment Summary Assessment AROM R shoulder flexion 153 deg end of session. Physical Therapy Plan Frequency and Duration Frequency of 2x/Week Treatment Duration of 12 treatment (weeks) Plan of Care Start 09/21/24 Date Plan of Care End 12/14/24 Date Next Visit Focus/Plan Next Note Type Treatment Note Next Visit Plan Possibly side plank, revisit mini band, review push up plus/modify to counter plank position, possibly seated AROM ER if able to perform pain free impingement treatment to B shoulders, ionto again as needed
--- NOTE | 2024-10-19 19:31 | PT.OTN ---
Current Diagnoses Pain in left shoulder (10/19/24) Physical Therapy Treatment Note PT-OP-A Visit Information Start: 09/21/24 13:02 Freq: Status: Active Protocol: Document 10/19/24 11:36 MACHINE ERECTOR (Rec: 10/19/24 12:39 MACHINE ERECTOR Laptop) Out-Patient Physical Therapy Visit Information Visit Information Visit Type Treatment Note Visit Start Time 11:35 Visit Stop Time 12:25 Visit Number 7 Number of BULK PLANT SUPERVISOR Visits 4 PT-OP-B Current Condition Start: 09/21/24 13:02 Freq: Status: Active Protocol: Document 09/21/24 13:03 MACHINE ERECTOR (Rec: 09/21/24 13:55 MACHINE ERECTOR Laptop) Current Condition History of Current Condition Onset Date ~June of 2024 Current Complaints B shoulder pain History of Current 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 For a few months I've been getting rotator cuff pain R worse than L and is affecting my striking. Fights L handed, R strike hurts worse. Pain up to 1-3/10 with a catch and affects his fluidity of movement. Side and belly sleeper and is affecting my sleep. It's affecting my ability to train and progress. I was planning to get certified in October but am now pushing it to December. Reports no history of shoulder injury. Has discomfort in L neck while rotating to L. No pain at rest, has pain when leaning on shoulder. Treatment Goals Patient/Caregiver To improve pain in B shoulders to be able to train at a Goals level that allows him to do certification for krav rohith and sleep at night. PT-OP-C Subjective Start: 09/21/24 13:02 Freq: Status: Active Protocol: Document 10/19/24 11:36 MACHINE ERECTOR (Rec: 10/19/24 12:39 MACHINE ERECTOR Laptop) OP-PT Subjective Patient Comments Patient Comments Pt reports no pain right now just stiffness. Went to a 2 hour boxing seminar and started 1.5 hours of low level [facility] pain free and has remained pain free after. PT-OP-F Manual Assessment Start: 09/21/24 13:02 Freq: Status: Active Protocol: Document 09/21/24 13:03 MACHINE ERECTOR (Rec: 09/21/24 13:55 MACHINE ERECTOR Laptop) Manual Assessments Soft Tissue Assessment Soft Tissue Mobility Decreased soft tissue mobility to B pec majors, L more Assessment impaired than R Joint Mobility Assessment Joint Mobility Slight decreased capsule mobility L shoulder superiorly Assessment PT-OP-K Range of Motion Start: 09/21/24 13:02 Freq: Status: Active Protocol: Document 09/21/24 13:03 MACHINE ERECTOR (Rec: 09/21/24 13:55 MACHINE ERECTOR Laptop) Shoulder Goniometric Range of Motion Shoulder ROM Limitations Shoulder ROM Pain Limitations Comments R flex 130-155 degrees painful L flex 170 degrees pain free R abd 103-131 degrees painful L abd 180 degrees, 90-115 painful R ER 64 degrees pain free L ER 75 degrees pain free R IR functional T7 L IR functional T5 PT-OP-M Strength Start: 09/21/24 13:02 Freq: Status: Active Protocol: Document 09/21/24 13:03 MACHINE ERECTOR (Rec: 09/21/24 13:55 MACHINE ERECTOR Laptop) Shoulder Strength Shoulder Manual Muscle Testing L Flexion 5 Normal Extension 4+ Good+ Abduction (C5) 4+ Good+ External Rotation 4+ Good+ Internal Rotation 5 Normal Comments painful ext, abd R Flexion 4+ Good+ Extension 5 Normal Abduction (C5) 4+ Good+ External Rotation 4 Good Internal Rotation 5 Normal Comments pain with abd, ER Elbow/Forearm Strength Elbow and Forearm Manual Muscle Testing L Flexion (C6) 5 Normal Extension (C7) 5 Normal Comments slight pain elbow ext R Flexion (C6) 5 Normal Extension (C7) 5 Normal PT-OP-Q Treatments Start: 09/21/24 13:02 Freq: Status: Active Protocol: Document 10/19/24 11:36 MACHINE ERECTOR (Rec: 10/19/24 12:39 MACHINE ERECTOR Laptop) Therapeutic Exercises Supine Exercises supine shoulder flexion Supine Exercise Name pain free RUE to 150 degrees flex Side bilateral Resistance L1 band no loop Reps/Minutes x15 Comments verbal cues to keep tension on band monitored for pain Prone Exercises Push Up Plus Prone Exercise Name in counter plank position this session HEP Reps/Minutes x15 Sidelying Exercises side plank Sidelying Exercise HEP review, on knees Name Reps/Minutes R 35s before pain +55s, L 46s before pain +60s Sitting Exercises LS stretch Sitting Exercise Added to HEP with HO Name Side bilateral Reps/Minutes 60sx2 each side UT stretch Sitting Exercise Added to HEP with HO Name Side bilateral Reps/Minutes 60sx2 each side Manual Therapy Treatment Consent Patient gave verbal Yes consent for manual treatment Soft Tissue Mobilization UT,levator scap Body Location bilateral UT Mobilization Type Cross-Friction,Trigger Point Release Intensity/Depth Deep Body Position Sidelying PT-OP-T Assessment and Plan Start: 09/21/24 13:02 Freq: Status: Active Protocol: Document 10/19/24 11:36 MACHINE ERECTOR (Rec: 10/19/24 12:39 MACHINE ERECTOR Laptop) Physical Therapy Assessment Goals 2 Impairment Strength Short Term Goal (STG Pt will demonstrate improved R shoulder ER strength ) from 4 to 4+ MMT without pain to improve function STG Duration 6 weeks [employer] Goal (LTG) Pt will demonstrate improved B shoulder strength to 5/5 pain free MMT to improve function and return to sport LTG Duration 12 weeks 1 Impairment ROM Short Term Goal (STG Pt will demonstrate active R shoulder flex to 150 ) degrees without pain to improve function. STG Duration 6 weeks [employer] Goal (LTG) Pt will demonstrate active R shoulder flex to 170 degrees without pain to improve function. LTG Duration 12 weeks Assessment Summary Assessment Pt tolerated all exercises well in pain free range. STM to large trigger points on B upper traps with R>L and UT and LS stretches added to HEP. Noted improvement in B shoulder flex after session: Start of session AROM: R flex 151 degrees no catch or pain, L flex 161 degrees no catch or pain. End of session AROM: R flex 157 degrees no catch or pain, L flex 164 degrees no catch or pain. TC to decrease thoracic ext compensation. Physical Therapy Plan Frequency and Duration Frequency of 2x/Week Treatment Duration of 12 treatment (weeks) Plan of Care Start 09/21/24 Plan of Care End 12/14/24 Date Therapeutic Interventions Therapeutic Home Exercise Program,Joint Mobilizations,Manual Interventions Therapy,Neuromuscular Re-education,Soft Tissue Mobilization,Taping,Therapeutic Activities,Therapeutic Exercises Modalities Cold Pack/Ice Massage,Hot Packs,Ultrasound Next Visit Focus/Plan Next Note Type Progress Note Next Visit Plan seated AROM ER pain free, TA activation for decreased thoracic ext during shoulder flex, wall slide with step to wall flexion, step back and lower without use of wall
--- NOTE | 2024-10-21 12:39 | PT.OTN ---
Current Diagnoses Pain in left shoulder (10/21/24) Physical Therapy Treatment Note PT-OP-A Visit Information Start: 09/21/24 13:02 Freq: Status: Active Protocol: Document 10/21/24 10:48 NATUROPATH (Rec: 10/21/24 11:38 NATUROPATH Laptop) Out-Patient Physical Therapy Visit Information Visit Information Visit Type Progress Note Visit Start Time 10:48 Visit Stop Time 11:36 Visit Number 8 Number of GEAR REPAIRER Visits 5 PT-OP-B Current Condition Start: 09/21/24 13:02 Freq: Status: Active Protocol: Document 09/21/24 13:03 NATUROPATH (Rec: 09/21/24 13:55 NATUROPATH Laptop) Current Condition History of Current Condition Onset Date ~June of 2024 Current Complaints B shoulder pain History of Current 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 For a few months I've been getting rotator cuff pain R worse than L and is affecting my striking. Fights L handed, R strike hurts worse. Pain up to 1-3/10 with a catch and affects his fluidity of movement. Side and belly sleeper and is affecting my sleep. It's affecting my ability to train and progress. I was planning to get certified in October but am now pushing it to December. Reports no history of shoulder injury. Has discomfort in L neck while rotating to L. No pain at rest, has pain when leaning on shoulder. Treatment Goals Patient/Caregiver To improve pain in B shoulders to be able to train at a Goals level that allows him to do certification for krav rohith and sleep at night. PT-OP-C Subjective Start: 09/21/24 13:02 Freq: Status: Active Protocol: Document 10/21/24 10:48 NATUROPATH (Rec: 10/21/24 11:38 NATUROPATH Laptop) OP-PT Subjective Patient Comments Patient Comments Pt reports he is back in the gym now doing light exercise and manual therapy with lacrosse balls and has been able to do it without pain. Pt has not had time to practice HEP since last session 2 days ago but has been able to do all activities without pain. PT-OP-F Manual Assessment Start: 09/21/24 13:02 Freq: Status: Active Protocol: Document 09/21/24 13:03 NATUROPATH (Rec: 09/21/24 13:55 NATUROPATH Laptop) Manual Assessments Soft Tissue Assessment Soft Tissue Mobility Decreased soft tissue mobility to B pec majors, L more Assessment impaired than R Joint Mobility Assessment Joint Mobility Slight decreased capsule mobility L shoulder superiorly Assessment PT-OP-K Range of Motion Start: 09/21/24 13:02 Freq: Status: Active Protocol: Document 10/21/24 10:48 NATUROPATH (Rec: 10/21/24 11:38 NATUROPATH Laptop) Shoulder Goniometric Range of Motion Shoulder ROM Limitations Shoulder ROM Pain Limitations Comments R flex 155 degrees pain free L flex 156 degrees pain free R abd 139 degrees pain free L abd 163 degrees pain free R ER 65 degrees pain free L ER 73 degrees pain free R IR functional T5 L IR functional T4 PT-OP-M Strength Start: 09/21/24 13:02 Freq: Status: Active Protocol: Document 10/21/24 10:48 NATUROPATH (Rec: 10/21/24 11:38 NATUROPATH Laptop) Shoulder Strength Shoulder Manual Muscle Testing L Flexion 5 Normal Extension 5 Normal Abduction (C5) 4+ Good+ External Rotation 4+ Good+ Internal Rotation 5 Normal Comments pain free R Flexion 5 Normal Extension 5 Normal Abduction (C5) 5 Normal External Rotation 4+ Good+ Internal Rotation 5 Normal Comments slight pain with ER Elbow/Forearm Strength Elbow and Forearm Manual Muscle Testing L Flexion (C6) 5 Normal Extension (C7) 5 Normal Comments pain free R Flexion (C6) 5 Normal Extension (C7) 5 Normal PT-OP-Q Treatments Start: 09/21/24 13:02 Freq: Status: Active Protocol: Document 10/19/24 11:36 NATUROPATH (Rec: 10/19/24 12:39 NATUROPATH Laptop) Therapeutic Exercises Supine Exercises supine shoulder flexion Supine Exercise Name pain free RUE to 150 degrees flex Side bilateral Resistance L1 band no loop Reps/Minutes x15 Comments verbal cues to keep tension on band monitored for pain Prone Exercises Push Up Plus Prone Exercise Name in counter plank position this session HEP Reps/Minutes x15 Sidelying Exercises side plank Sidelying Exercise HEP review, on knees Name Reps/Minutes R 35s before pain +55s, L 46s before pain +60s Sitting Exercises LS stretch Sitting Exercise Added to HEP with HO Name Side bilateral Reps/Minutes 60sx2 each side UT stretch Sitting Exercise Added to HEP with HO Name Side bilateral Reps/Minutes 60sx2 each side Manual Therapy Treatment Consent Patient gave verbal Yes consent for manual treatment Soft Tissue Mobilization UT,levator scap Body Location bilateral UT Mobilization Type Cross-Friction,Trigger Point Release Intensity/Depth Deep Body Position Sidelying PT-OP-T Assessment and Plan Start: 09/21/24 13:02 Freq: Status: Active Protocol: Document 10/21/24 10:48 NATUROPATH (Rec: 10/21/24 11:38 NATUROPATH Laptop) Physical Therapy Assessment Goals 2 Impairment Strength Short Term Goal (STG Pt will demonstrate improved R shoulder ER strength ) from 4 to 4+ MMT without pain to improve function STG Duration 6 weeks Status: MET 7/3 Snf Goal (LTG) Pt will demonstrate improved B shoulder strength to 5/5 pain free MMT to improve function and return to sport LTG Duration 12 weeks 1 Impairment ROM Short Term Goal (STG Pt will demonstrate active R shoulder flex to 150 ) degrees without pain to improve function. STG Duration 6 weeks Status: MET 155 degrees 7/3 Snf Goal (LTG) Pt will demonstrate active R shoulder flex to 170 degrees without pain to improve function. LTG Duration 12 weeks Progress Towards Goals Progress Towards Progressing Toward Goals Goals Assessment Summary Assessment Pt is progressing with BUE strength, AROM, and pain, meeting both strength and ROM short term goals. Pt still requires skilled PT intervention to progress towards [facility] goals. Physical Therapy Plan Frequency and Duration Frequency of 2x/Week Treatment Duration of 12 treatment (weeks) Plan of Care Start 09/21/24 Date Plan of Care End 12/14/24 Date Therapeutic Interventions Therapeutic Home Exercise Program,Joint Mobilizations,Manual Interventions Therapy,Neuromuscular Re-education,Soft Tissue Mobilization,Taping,Therapeutic Activities,Therapeutic Exercises Modalities Cold Pack/Ice Massage,Hot Packs,Ultrasound Next Visit Focus/Plan Next Note Type Treatment Note Next Visit Plan seated AROM ER pain free, TA activation for decreased thoracic ext during shoulder flex, wall slide with step to wall flexion, step back and lower without use of wall, lat stretching/STM/IASTM
--- NOTE | 2024-10-26 19:03 | PT.OTN ---
Current Diagnoses Pain in left shoulder (10/26/24) Physical Therapy Treatment Note PT-OP-A Visit Information Start: 09/21/24 13:02 Freq: Status: Active Protocol: Document 10/26/24 16:22 ASSET PROTECTION AGENT (Rec: 10/26/24 17:08 ASSET PROTECTION AGENT Laptop) Out-Patient Physical Therapy Visit Information Visit Information Visit Type Treatment Note Visit Start Time 16:20 Visit Stop Time 17:08 Visit Number 9 Number of DIRECTOR OF CORPORATE COMMUNICATIONS Visits 0 PT-OP-B Current Condition Start: 09/21/24 13:02 Freq: Status: Active Protocol: Document 09/21/24 13:03 ASSET PROTECTION AGENT (Rec: 09/21/24 13:55 ASSET PROTECTION AGENT Laptop) Current Condition History of Current Condition Onset Date ~June of 2024 Current Complaints B shoulder pain History of Current 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 For a few months I've been getting rotator cuff pain R worse than L and is affecting my striking. Fights L handed, R strike hurts worse. Pain up to 1-3/10 with a catch and affects his fluidity of movement. Side and belly sleeper and is affecting my sleep. It's affecting my ability to train and progress. I was planning to get certified in October but am now pushing it to December. Reports no history of shoulder injury. Has discomfort in L neck while rotating to L. No pain at rest, has pain when leaning on shoulder. Treatment Goals Patient/Caregiver To improve pain in B shoulders to be able to train at a Goals level that allows him to do certification for krav rohith and sleep at night. PT-OP-C Subjective Start: 09/21/24 13:02 Freq: Status: Active Protocol: Document 10/26/24 16:22 ASSET PROTECTION AGENT (Rec: 10/26/24 17:08 ASSET PROTECTION AGENT Laptop) OP-PT Subjective Patient Comments Patient Comments Start of session AROM: R flex 149 degrees, L flex 156 degrees. Pt reports continued low level jiu jitsu without pain and ADLS without pain, just feels tightness in shoulders. PT-OP-F Manual Assessment Start: 09/21/24 13:02 Freq: Status: Active Protocol: Document 09/21/24 13:03 ASSET PROTECTION AGENT (Rec: 09/21/24 13:55 ASSET PROTECTION AGENT Laptop) Manual Assessments Soft Tissue Assessment Soft Tissue Mobility Decreased soft tissue mobility to B pec majors, L more Assessment impaired than R Joint Mobility Assessment Joint Mobility Slight decreased capsule mobility L shoulder superiorly Assessment PT-OP-K Range of Motion Start: 09/21/24 13:02 Freq: Status: Active Protocol: Document 10/21/24 10:48 ASSET PROTECTION AGENT (Rec: 10/21/24 11:38 ASSET PROTECTION AGENT Laptop) Shoulder Goniometric Range of Motion Shoulder ROM Limitations Shoulder ROM Pain Limitations Comments R flex 155 degrees pain free L flex 156 degrees pain free R abd 139 degrees pain free L abd 163 degrees pain free R ER 65 degrees pain free L ER 73 degrees pain free R IR functional T5 L IR functional T4 PT-OP-M Strength Start: 09/21/24 13:02 Freq: Status: Active Protocol: Document 10/21/24 10:48 ASSET PROTECTION AGENT (Rec: 10/21/24 11:38 ASSET PROTECTION AGENT Laptop) Shoulder Strength Shoulder Manual Muscle Testing L Flexion 5 Normal Extension 5 Normal Abduction (C5) 4+ Good+ External Rotation 4+ Good+ Internal Rotation 5 Normal Comments pain free R Flexion 5 Normal Extension 5 Normal Abduction (C5) 5 Normal External Rotation 4+ Good+ Internal Rotation 5 Normal Comments slight pain with ER Elbow/Forearm Strength Elbow and Forearm Manual Muscle Testing L Flexion (C6) 5 Normal Extension (C7) 5 Normal Comments pain free R Flexion (C6) 5 Normal Extension (C7) 5 Normal PT-OP-Q Treatments Start: 09/21/24 13:02 Freq: Status: Active Protocol: Document 10/26/24 16:22 ASSET PROTECTION AGENT (Rec: 10/26/24 17:08 ASSET PROTECTION AGENT Laptop) Therapeutic Exercises Supine Exercises PPT Supine Exercise Name 1. PPT 2. Hold 5s Reps/Minutes 1. x10 2. x5 with 5s hold Comments VC for inhale/exhale Prone Exercises I's,T's,Y's Prone Exercise Name at edge of bed Side right Reps/Minutes x10 each Comments Added to HEP with HO given Standing Exercises Y's Standing Exercise variation given for prone Y's, against wall Name Side right Reps/Minutes x10 PPT Standing Exercise against wall Name Reps/Minutes 10x2 Comments VC for B knee ext and use of wall as TC, Added to HEP with HO Shoulder ER Side bilateral Equipment Used towel roll Reps/Minutes x10 each side Comments full ROM without pain, slight thoracic rotation compensation Manual Therapy Treatment Consent Patient gave verbal Yes consent for manual treatment Soft Tissue Mobilization lat Body Location R Mobilization Type Cross-Friction,Rolling Intensity/Depth Deep Body Position Sidelying UT,levator scap Body Location R UT, levator scap Mobilization Type Cross-Friction,Trigger Point Release Intensity/Depth Deep Body Position Sidelying PT-OP-T Assessment and Plan Start: 09/21/24 13:02 Freq: Status: Active Protocol: Document 10/26/24 16:22 ASSET PROTECTION AGENT (Rec: 10/26/24 17:08 ASSET PROTECTION AGENT Laptop) Physical Therapy Assessment Goals 2 Impairment Strength Short Term Goal (STG Pt will demonstrate improved R shoulder ER strength ) from 4 to 4+ MMT without pain to improve function STG Duration 6 weeks Status: MET 7/3 [employer] Car Repairer Goal (LTG) Pt will demonstrate improved B shoulder strength to 5/5 pain free MMT to improve function and return to sport LTG Duration 12 weeks 1 Impairment ROM Short Term Goal (STG Pt will demonstrate active R shoulder flex to 150 ) degrees without pain to improve function. STG Duration 6 weeks Status: MET 155 degrees 7/3 Fdc Goal (LTG) Pt will demonstrate active R shoulder flex to 170 degrees without pain to improve function. LTG Duration 12 weeks Progress Towards Goals Progress Towards Progressing Toward Goals Goals Assessment Summary Assessment Pt is progressing with UE AROM from R shoulder flex at 149 degrees at beginning of session to 154 degrees at end of session with improved posture and L shoulder flex at 156 degrees to 151 degrees at end of session but with improved compensations of thoracic ext and without STM to L. Focus this session on TA activation in supine>standing without B knee flex compensation with HEP given for PPT and hip flexor stretch. Continues to demonstrate tightness of R lev scap limiting scapular ROM, introduced prone scapular exercises without pain and with improved scap activation in depression and retraction with HEP given. Physical Therapy Plan Frequency and Duration Frequency of 2x/Week Treatment Duration of 12 treatment (weeks) Plan of Care Start 09/21/24 Date Plan of Care End 12/14/24 Date Therapeutic Interventions Therapeutic Home Exercise Program,Joint Mobilizations,Manual Interventions Therapy,Neuromuscular Re-education,Soft Tissue Mobilization,Taping,Therapeutic Activities,Therapeutic Exercises Modalities Cold Pack/Ice Massage,Hot Packs,Ultrasound Next Visit Focus/Plan Next Note Type Treatment Note Next Visit Plan review I's,T's,Ys, STM to R levator scap, review TA activation in standing against wall, wall slide with step to wall flex with step back and lower without use of wall, mobs to AC joint
--- NOTE | 2024-10-28 14:03 | PT.OTN ---
Current Diagnoses Pain in left shoulder (10/28/24) Physical Therapy Treatment Note PT-OP-A Visit Information Start: 09/21/24 13:02 Freq: Status: Active Protocol: Document 10/28/24 13:00 AB (Rec: 10/28/24 13:49 AB [id number]) Out-Patient Physical Therapy Visit Information Visit Information Visit Type Treatment Note Visit Note Access Code: [email or web address] Visit Start Time 13:01 Visit Stop Time 13:46 Visit Number 10 (PN 11/20/2024) Number of COMMUNICATION EQUIPMENT REPAIRER Visits 1 PT-OP-B Current Condition Start: 09/21/24 13:02 Freq: Status: Active Protocol: Document 09/21/24 13:03 ASSIGNER (Rec: 09/21/24 13:55 ASSIGNER Laptop) Current Condition History of Current Condition Onset Date ~June of 2024 Current Complaints B shoulder pain History of Current 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 For a few months I've been getting rotator cuff pain R worse than L and is affecting my striking. Fights L handed, R strike hurts worse. Pain up to 1-3/10 with a catch and affects his fluidity of movement. Side and belly sleeper and is affecting my sleep. It's affecting my ability to train and progress. I was planning to get certified in October but am now pushing it to December. Reports no history of shoulder injury. Has discomfort in L neck while rotating to L. No pain at rest, has pain when leaning on shoulder. Treatment Goals Patient/Caregiver To improve pain in B shoulders to be able to train at a Goals level that allows him to do certification for krav rohith and sleep at night. PT-OP-C Subjective Start: 09/21/24 13:02 Freq: Status: Active Protocol: Document 10/28/24 13:00 AB (Rec: 10/28/24 13:49 AB [id number]) OP-PT Subjective Patient Comments Patient Comments Patient reports shoulder's feel good today, does have some stiffness. Patient reports having some pain with practicing PubGame with , but no residual pain. AROM R shoulder 141 deg start of session. PT-OP-F Manual Assessment Start: 09/21/24 13:02 Freq: Status: Active Protocol: Document 09/21/24 13:03 ASSIGNER (Rec: 09/21/24 13:55 ASSIGNER Laptop) Manual Assessments Soft Tissue Assessment Soft Tissue Mobility Decreased soft tissue mobility to B pec majors, L more Assessment impaired than R Joint Mobility Assessment Joint Mobility Slight decreased capsule mobility L shoulder superiorly Assessment PT-OP-K Range of Motion Start: 09/21/24 13:02 Freq: Status: Active Protocol: Document 10/21/24 10:48 ASSIGNER (Rec: 10/21/24 11:38 ASSIGNER Laptop) Shoulder Goniometric Range of Motion Shoulder ROM Limitations Shoulder ROM Pain Limitations Comments R flex 155 degrees pain free L flex 156 degrees pain free R abd 139 degrees pain free L abd 163 degrees pain free R ER 65 degrees pain free L ER 73 degrees pain free R IR functional T5 L IR functional T4 PT-OP-M Strength Start: 09/21/24 13:02 Freq: Status: Active Protocol: Document 10/21/24 10:48 ASSIGNER (Rec: 10/21/24 11:38 ASSIGNER Laptop) Shoulder Strength Shoulder Manual Muscle Testing L Flexion 5 Normal Extension 5 Normal Abduction (C5) 4+ Good+ External Rotation 4+ Good+ Internal Rotation 5 Normal Comments pain free R Flexion 5 Normal Extension 5 Normal Abduction (C5) 5 Normal External Rotation 4+ Good+ Internal Rotation 5 Normal Comments slight pain with ER Elbow/Forearm Strength Elbow and Forearm Manual Muscle Testing L Flexion (C6) 5 Normal Extension (C7) 5 Normal Comments pain free R Flexion (C6) 5 Normal Extension (C7) 5 Normal PT-OP-Q Treatments Start: 09/21/24 13:02 Freq: Status: Active Protocol: Document 10/28/24 13:00 AB (Rec: 10/28/24 13:49 AB [id number]) Therapeutic Exercises Supine Exercises Pec Stretch Supine Exercise Name Passive B pec stretch on full foam roller Side bilateral Reps/Minutes 2 mins Comments Added to HEP, pt will buy full foam roller Prone Exercises I's,T's,Y's Prone Exercise Name at edge of bed Side right Reps/Minutes x10 each Comments post manual Other Exercises Mgill Big 3 Other Exercise Name 1. chin tuck with head lift 2. side plank on knees 3. Bird dog. Reps/Minutes 7 sec X 3 each and each side Comments Verbal cues Manual Therapy Treatment Consent Patient gave verbal Yes consent for manual treatment Soft Tissue Mobilization lat Body Location R Mobilization Type Cross-Friction,Rolling Intensity/Depth Moderate Body Position Sidelying post cuff Body Location bilateral Mobilization Type Cross-Friction,Rolling Intensity/Depth Moderate Body Position Sidelying UT,levator scap Body Location B UT, levator scap Mobilization Type Cross-Friction,Rolling,Sustained Pressure Intensity/Depth Deep Body Position Sidelying Pec Body Location b pec Mobilization Type Rolling,Sustained Pressure Intensity/Depth Moderate Body Position Hooklying Joint Mobilizations AC and SC Joint caudal bilateral AC Grade III Body Position Sidelying Reps/Duration X 10 scap Joint bilateral Direction into dep and add Grade IV Body Position Sidelying Reps/Duration X 10 each direction each UE GH Joint Bilateral AP and inf Grade IV Body Position Hooklying Reps/Duration X 10 X 2 each direction each mobilzation PT-OP-T Assessment and Plan Start: 09/21/24 13:02 Freq: Status: Active Protocol: Document 10/28/24 13:00 AB (Rec: 10/28/24 13:49 AB [id number]) Physical Therapy Assessment Goals 2 Impairment Strength Short Term Goal (STG Pt will demonstrate improved R shoulder ER strength ) from 4 to 4+ MMT without pain to improve function STG Duration 6 weeks Status: MET 7/3 Base Filler Goal (LTG) Pt will demonstrate improved B shoulder strength to 5/5 pain free MMT to improve function and return to sport LTG Duration 12 weeks 1 Impairment ROM Short Term Goal (STG Pt will demonstrate active R shoulder flex to 150 ) degrees without pain to improve function. STG Duration 6 weeks Status: MET 155 degrees 7/3 Base Filler Goal (LTG) Pt will demonstrate active R shoulder flex to 170 degrees without pain to improve function. LTG Duration 12 weeks Assessment Summary Assessment AROM R shoulder flexion 131 deg end of session likely due to fatigue with reports of popping on final trail, possibly due to fatigue Physical Therapy Plan Frequency and Duration Frequency of 2x/Week Treatment Duration of 12 treatment (weeks) Plan of Care Start 09/21/24 Date Plan of Care End 12/14/24 Date Next Visit Focus/Plan Next Note Type Treatment Note Next Visit Plan review I's,T's,Ys, STM to R levator scap, review TA activation in standing against wall, wall slide with step to wall flex with step back and lower without use of wall, mobs to AC joint
--- NOTE | 2024-10-28 14:35 | PT.OTN ---
Current Diagnoses Pain in left shoulder (10/28/24) Physical Therapy Treatment Note PT-OP-A Visit Information Start: 09/21/24 13:02 Freq: Status: Active Protocol: Document 10/28/24 13:00 AB (Rec: 10/28/24 13:49 AB [id number]) Out-Patient Physical Therapy Visit Information Visit Information Visit Type Treatment Note Visit Note Access Code: [email or web address] Visit Start Time 13:01 Visit Stop Time 13:46 Visit Number 10 (PN 11/20/2024) Number of BOILER HOUSE INSPECTOR Visits 1 PT-OP-B Current Condition Start: 09/21/24 13:02 Freq: Status: Active Protocol: Document 09/21/24 13:03 MANAGER ORACLE (Rec: 09/21/24 13:55 MANAGER ORACLE Laptop) Current Condition History of Current Condition Onset Date ~June of 2024 Current Complaints B shoulder pain History of 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 For a few months I've been getting rotator cuff pain R worse than L and is affecting my striking. Fights L handed, R strike hurts worse. Pain up to 1-3/10 with a catch and affects his fluidity of movement. Side and belly sleeper and is affecting my sleep. It's affecting my ability to train and progress. I was planning to get certified in October but am now pushing it to December. Reports no history of shoulder injury. Has discomfort in L neck while rotating to L. No pain at rest, has pain when leaning on shoulder. Treatment Goals Patient/Caregiver To improve pain in B shoulders to be able to train at a Goals level that allows him to do certification for krav rohith and sleep at night. PT-OP-C Subjective Start: 09/21/24 13:02 Freq: Status: Active Protocol: Document 10/28/24 13:00 AB (Rec: 10/28/24 13:49 AB [id number]) OP-PT Subjective Patient Comments Patient Comments Patient reports shoulder's feel good today, does have some stiffness. Patient reports having some pain with practicing Stir with , but no residual pain. AROM R shoulder 141 deg start of session. PT-OP-F Manual Assessment Start: 09/21/24 13:02 Freq: Status: Active Protocol: Document 09/21/24 13:03 MANAGER ORACLE (Rec: 09/21/24 13:55 MANAGER ORACLE Laptop) Manual Assessments Soft Tissue Assessment Soft Tissue Mobility Decreased soft tissue mobility to B pec majors, L more Assessment impaired than R Joint Mobility Assessment Joint Mobility Slight decreased capsule mobility L shoulder superiorly Assessment PT-OP-K Range of Motion Start: 09/21/24 13:02 Freq: Status: Active Protocol: Document 10/21/24 10:48 MANAGER ORACLE (Rec: 10/21/24 11:38 MANAGER ORACLE Laptop) Shoulder Goniometric Range of Motion Shoulder ROM Limitations Shoulder ROM Pain Limitations Comments R flex 155 degrees pain free L flex 156 degrees pain free R abd 139 degrees pain free L abd 163 degrees pain free R ER 65 degrees pain free L ER 73 degrees pain free R IR functional T5 L IR functional T4 PT-OP-M Strength Start: 09/21/24 13:02 Freq: Status: Active Protocol: Document 10/21/24 10:48 MANAGER ORACLE (Rec: 10/21/24 11:38 MANAGER ORACLE Laptop) Shoulder Strength Shoulder Manual Muscle Testing L Flexion 5 Normal Extension 5 Normal Abduction (C5) 4+ Good+ External Rotation 4+ Good+ Internal Rotation 5 Normal Comments pain free R Flexion 5 Normal Extension 5 Normal Abduction (C5) 5 Normal External Rotation 4+ Good+ Internal Rotation 5 Normal Comments slight pain with ER Elbow/Forearm Strength Elbow and Forearm Manual Muscle Testing L Flexion (C6) 5 Normal Extension (C7) 5 Normal Comments pain free R Flexion (C6) 5 Normal Extension (C7) 5 Normal PT-OP-Q Treatments Start: 09/21/24 13:02 Freq: Status: Active Protocol: Document 10/28/24 13:00 AB (Rec: 10/28/24 13:49 AB [id number]) Therapeutic Exercises Supine Exercises Pec Stretch Supine Exercise Name Passive B pec stretch on full foam roller Side bilateral Reps/Minutes 2 mins Comments Added to HEP, pt will buy full foam roller Prone Exercises I's,T's,Y's Prone Exercise Name at edge of bed Side right Reps/Minutes x10 each Comments post manual Other Exercises Mgill Big 3 Other Exercise Name 1. chin tuck with head lift 2. side plank on knees 3. Bird dog. Reps/Minutes 7 sec X 3 each and each side Comments Verbal cues Manual Therapy Treatment Consent Patient gave verbal Yes consent for manual treatment Soft Tissue Mobilization lat Body Location R Mobilization Type Cross-Friction,Rolling Intensity/Depth Moderate Body Position Sidelying post cuff Body Location bilateral Mobilization Type Cross-Friction,Rolling Intensity/Depth Moderate Body Position Sidelying UT,levator scap Body Location B UT, levator scap Mobilization Type Cross-Friction,Rolling,Sustained Pressure Intensity/Depth Deep Body Position Sidelying Pec Body Location b pec Mobilization Type Rolling,Sustained Pressure Intensity/Depth Moderate Body Position Hooklying Joint Mobilizations AC and SC Joint caudal bilateral AC Grade III Body Position Sidelying Reps/Duration X 10 scap Joint bilateral Direction into dep and add Grade IV Body Position Sidelying Reps/Duration X 10 each direction each UE GH Joint Bilateral AP and inf Grade IV Body Position Hooklying Reps/Duration X 10 X 2 each direction each mobilzation PT-OP-T Assessment and Plan Start: 09/21/24 13:02 Freq: Status: Active Protocol: Document 10/28/24 13:00 AB (Rec: 10/28/24 13:49 AB [id number]) Physical Therapy Assessment Goals 2 Impairment Strength Short Term Goal (STG Pt will demonstrate improved R shoulder ER strength ) from 4 to 4+ MMT without pain to improve function STG Duration 6 weeks Status: MET 7/3 Burr Sander Goal (LTG) Pt will demonstrate improved B shoulder strength to 5/5 pain free MMT to improve function and return to sport LTG Duration 12 weeks 1 Impairment ROM Short Term Goal (STG Pt will demonstrate active R shoulder flex to 150 ) degrees without pain to improve function. STG Duration 6 weeks Status: MET 155 degrees 7/3 Burr Sander Goal (LTG) Pt will demonstrate active R shoulder flex to 170 degrees without pain to improve function. LTG Duration 12 weeks Assessment Summary Assessment AROM R shoulder flexion 131 deg end of session likely due to fatigue with reports of popping on final trail, possibly due to fatigue Physical Therapy Plan Frequency and Duration Frequency of 2x/Week Treatment Duration of 12 treatment (weeks) Plan of Care Start 09/21/24 Date Plan of Care End 12/14/24 Date Next Visit Focus/Plan Next Note Type Treatment Note Next Visit Plan review I's,T's,Ys, STM to R levator scap, review TA activation in standing against wall, wall slide with step to wall flex with step back and lower without use of wall, mobs to AC joint
--- NOTE | 2024-11-02 19:14 | PT.OTN ---
Current Diagnoses Pain in left shoulder (11/02/24) Physical Therapy Treatment Note PT-OP-A Visit Information Start: 09/21/24 13:02 Freq: Status: Active Protocol: Document 11/02/24 14:35 SOIL FERTILITY EXTENSION SPECIALIST (Rec: 11/02/24 15:21 SOIL FERTILITY EXTENSION SPECIALIST Laptop) Out-Patient Physical Therapy Visit Information Visit Information Visit Type Treatment Note Visit Start Time 14:35 Visit Stop Time 15:21 Visit Number 11 Number of SUPPLY CHAIN PROCUREMENT MANAGER Visits 0 PT-OP-B Current Condition Start: 09/21/24 13:02 Freq: Status: Active Protocol: Document 09/21/24 13:03 SOIL FERTILITY EXTENSION SPECIALIST (Rec: 09/21/24 13:55 SOIL FERTILITY EXTENSION SPECIALIST Laptop) Current Condition History of Current Condition Onset Date ~June of 2024 Current Complaints B shoulder pain History of 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 For a few months I've been getting rotator cuff pain R worse than L and is affecting my striking. Fights L handed, R strike hurts worse. Pain up to 1-3/10 with a catch and affects his fluidity of movement. Side and belly sleeper and is affecting my sleep. It's affecting my ability to train and progress. I was planning to get certified in October but am now pushing it to December. Reports no history of shoulder injury. Has discomfort in L neck while rotating to L. No pain at rest, has pain when leaning on shoulder. Treatment Goals Patient/Caregiver To improve pain in B shoulders to be able to train at a Goals level that allows him to do certification for krav rohith and sleep at night. PT-OP-C Subjective Start: 09/21/24 13:02 Freq: Status: Active Protocol: Document 11/02/24 14:35 SOIL FERTILITY EXTENSION SPECIALIST (Rec: 11/02/24 15:21 SOIL FERTILITY EXTENSION SPECIALIST Laptop) OP-PT Subjective Patient Comments Patient Comments Pt reports shoulders feel good, [facility] [employer] [facility]. Start of session: AROM R shoulder flex 152 degrees, abd 155 degrees with pain free catch at scapula. PT-OP-F Manual Assessment Start: 09/21/24 13:02 Freq: Status: Active Protocol: Document 09/21/24 13:03 SOIL FERTILITY EXTENSION SPECIALIST (Rec: 09/21/24 13:55 SOIL FERTILITY EXTENSION SPECIALIST Laptop) Manual Assessments Soft Tissue Assessment Soft Tissue Mobility Decreased soft tissue mobility to B pec majors, L more Assessment impaired than R Joint Mobility Assessment Joint Mobility Slight decreased capsule mobility L shoulder superiorly Assessment PT-OP-K Range of Motion Start: 09/21/24 13:02 Freq: Status: Active Protocol: Document 10/21/24 10:48 SOIL FERTILITY EXTENSION SPECIALIST (Rec: 10/21/24 11:38 SOIL FERTILITY EXTENSION SPECIALIST Laptop) Shoulder Goniometric Range of Motion Shoulder ROM Limitations Shoulder ROM Pain Limitations Comments R flex 155 degrees pain free L flex 156 degrees pain free R abd 139 degrees pain free L abd 163 degrees pain free R ER 65 degrees pain free L ER 73 degrees pain free R IR functional T5 L IR functional T4 PT-OP-M Strength Start: 09/21/24 13:02 Freq: Status: Active Protocol: Document 10/21/24 10:48 SOIL FERTILITY EXTENSION SPECIALIST (Rec: 10/21/24 11:38 SOIL FERTILITY EXTENSION SPECIALIST Laptop) Shoulder Strength Shoulder Manual Muscle Testing L Flexion 5 Normal Extension 5 Normal Abduction (C5) 4+ Good+ External Rotation 4+ Good+ Internal Rotation 5 Normal Comments pain free R Flexion 5 Normal Extension 5 Normal Abduction (C5) 5 Normal External Rotation 4+ Good+ Internal Rotation 5 Normal Comments slight pain with ER Elbow/Forearm Strength Elbow and Forearm Manual Muscle Testing L Flexion (C6) 5 Normal Extension (C7) 5 Normal Comments pain free R Flexion (C6) 5 Normal Extension (C7) 5 Normal PT-OP-Q Treatments Start: 09/21/24 13:02 Freq: Status: Active Protocol: Document 11/02/24 14:35 SOIL FERTILITY EXTENSION SPECIALIST (Rec: 11/02/24 15:21 SOIL FERTILITY EXTENSION SPECIALIST Laptop) Cardio Equipment Upper Body Ergometer (UBE) Duration (Minutes) 4 Other 2 mins forward, 2 mins backward VC for scapular positioning Therapeutic Exercises Prone Exercises I's,T's,Y's Prone Exercise Name at edge of bed, added arm down to side to HEP Side bilateral Reps/Minutes x15 each Comments post manual Sidelying Exercises shoulder abd AROM Side right Resistance gravity Reps/Minutes x10 Comments to point of pain Standing Exercises Standing ball roll outs Standing Exercise lat stretching on exercise ball, forward and side to Name side Side bilateral Reps/Minutes 3 mins Comments limited by pain to post R shoulder Manual Therapy Treatment Consent Patient gave verbal Yes consent for manual treatment Soft Tissue Mobilization Supraspinatus Body Location R Mobilization Type Rolling,Sustained Pressure Intensity/Depth Deep Body Position Sidelying Comments rolling, sustained pressure with active R shoulder abd x10, improved AROM after UT,levator scap Body Location R levator scap Mobilization Type Sustained Pressure Intensity/Depth Deep Body Position Sidelying Comments with active scap elevation and depression x10, improved AROM without scapular clicking after PT-OP-T Assessment and Plan Start: 09/21/24 13:02 Freq: Status: Active Protocol: Document 11/02/24 14:35 SOIL FERTILITY EXTENSION SPECIALIST (Rec: 11/02/24 15:21 SOIL FERTILITY EXTENSION SPECIALIST Laptop) Physical Therapy Assessment Goals 2 Impairment Strength Short Term Goal (STG Pt will demonstrate improved R shoulder ER strength ) from 4 to 4+ MMT without pain to improve function STG Duration 6 weeks Status: MET 7/3 Housekeeping Supervisor Goal (LTG) Pt will demonstrate improved B shoulder strength to 5/5 pain free MMT to improve function and return to sport LTG Duration 12 weeks 1 Impairment ROM Short Term Goal (STG Pt will demonstrate active R shoulder flex to 150 ) degrees without pain to improve function. STG Duration 6 weeks Status: MET 155 degrees 7/3 Prison Goal (LTG) Pt will demonstrate active R shoulder flex to 170 degrees without pain to improve function. LTG Duration 12 weeks Progress Towards Goals Progress Towards Progressing Toward Goals Goals Assessment Summary Assessment AROM at end of session after STM to levator scap about the same but with improved catching at scapula during abd. AROM R shoulder flex 154, abd 155 degrees with decreased catch. Physical Therapy Plan Frequency and Duration Frequency of 2x/Week Treatment Duration of 12 treatment (weeks) Plan of Care Start 09/21/24 Date Plan of Care End 12/14/24 Date Therapeutic Interventions Therapeutic Home Exercise Program,Joint Mobilizations,Manual Interventions Therapy,Neuromuscular Re-education,Soft Tissue Mobilization,Taping,Therapeutic Activities,Therapeutic Exercises Modalities Cold Pack/Ice Massage,Hot Packs,Ultrasound Next Visit Focus/Plan Next Note Type Treatment Note Next Visit Plan STM to R levator scap, mobs to AC joint, progress R ER, TB diagonal pull downs, standing blade in pain free range
--- NOTE | 2024-11-05 16:09 | PT.OTN ---
Current Diagnoses Pain in left shoulder (11/05/24) Physical Therapy Treatment Note PT-OP-A Visit Information Start: 09/21/24 13:02 Freq: Status: Active Protocol: Document 11/05/24 14:36 NBM (Rec: 11/05/24 16:08 NBM Laptop) Out-Patient Physical Therapy Visit Information Visit Information Visit Type Treatment Note Visit Start Time 14:33 Visit Stop Time 15:20 Visit Number 12 Number of SENIOR APPLICATIONS ARCHITECT Visits 1 Evaluation Information Evaluation Date 09/21/24 PT-OP-B Current Condition Start: 09/21/24 13:02 Freq: Status: Active Protocol: Document 09/21/24 13:03 INLETTER (Rec: 09/21/24 13:55 INLETTER Laptop) Current Condition History of Current Condition Onset Date ~June of 2024 Current Complaints B shoulder pain History of Current 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 For a few months I've been getting rotator cuff pain R worse than L and is affecting my striking. Fights L handed, R strike hurts worse. Pain up to 1-3/10 with a catch and affects his fluidity of movement. Side and belly sleeper and is affecting my sleep. It's affecting my ability to train and progress. I was planning to get certified in October but am now pushing it to December. Reports no history of shoulder injury. Has discomfort in L neck while rotating to L. No pain at rest, has pain when leaning on shoulder. Treatment Goals Patient/Caregiver To improve pain in B shoulders to be able to train at a Goals level that allows him to do certification for krav rohith and sleep at night. PT-OP-C Subjective Start: 09/21/24 13:02 Freq: Status: Active Protocol: Document 11/05/24 14:36 NBM (Rec: 11/05/24 16:08 NBM Laptop) OP-PT Subjective Patient Comments Patient Comments Pt reports he's starting to feel hopeful about taking certification exam. Sleep is still an issue. He tried sleeping on back but just laid there for an hour. When he sleeps on side he finds a position that doesn't hurt shoulder but wakes up with stiffness. helps him with increasing hip flexor stretch. It's kind of frustrating to think of having a muscle 'weakness.' PT-OP-F Manual Assessment Start: 09/21/24 13:02 Freq: Status: Active Protocol: Document 09/21/24 13:03 INLETTER (Rec: 09/21/24 13:55 INLETTER Laptop) Manual Assessments Soft Tissue Assessment Soft Tissue Mobility Decreased soft tissue mobility to B pec majors, L more Assessment impaired than R Joint Mobility Assessment Joint Mobility Slight decreased capsule mobility L shoulder superiorly Assessment PT-OP-K Range of Motion Start: 09/21/24 13:02 Freq: Status: Active Protocol: Document 10/21/24 10:48 INLETTER (Rec: 10/21/24 11:38 INLETTER Laptop) Shoulder Goniometric Range of Motion Shoulder ROM Limitations Shoulder ROM Pain Limitations Comments R flex 155 degrees pain free L flex 156 degrees pain free R abd 139 degrees pain free L abd 163 degrees pain free R ER 65 degrees pain free L ER 73 degrees pain free R IR functional T5 L IR functional T4 PT-OP-M Strength Start: 09/21/24 13:02 Freq: Status: Active Protocol: Document 10/21/24 10:48 INLETTER (Rec: 10/21/24 11:38 INLETTER Laptop) Shoulder Strength Shoulder Manual Muscle Testing L Flexion 5 Normal Extension 5 Normal Abduction (C5) 4+ Good+ External Rotation 4+ Good+ Internal Rotation 5 Normal Comments pain free R Flexion 5 Normal Extension 5 Normal Abduction (C5) 5 Normal External Rotation 4+ Good+ Internal Rotation 5 Normal Comments slight pain with ER Elbow/Forearm Strength Elbow and Forearm Manual Muscle Testing L Flexion (C6) 5 Normal Extension (C7) 5 Normal Comments pain free R Flexion (C6) 5 Normal Extension (C7) 5 Normal PT-OP-Q Treatments Start: 09/21/24 13:02 Freq: Status: Active Protocol: Document 11/05/24 14:36 NBM (Rec: 11/05/24 16:08 NBM Laptop) Cardio Equipment Upper Body Ergometer (UBE) Duration (Minutes) 4 Height Lvl 3 Other 2 mins forward, 2 mins backward VC for scapular positioning Therapeutic Exercises Prone Exercises I's,T's,Y's Prone Exercise Name HEP verbal review: at edge of bed, added arm down to side Side bilateral Reps/Minutes x15 each Comments vc for cervical alignment, scapular setting, and breathwork Sitting Exercises LS stretch Sitting Exercise HEP review Name Side bilateral Reps/Minutes 30s ea Comments verbal cues for gentle chin tuck to initiate UT stretch Sitting Exercise HEP review Name Side bilateral Reps/Minutes 30s ea Comments tactile cues for gentle chin tuck to initiate Standing Exercises D1/D2 Upper Extremity Patterns Standing Exercise 1. D1 - added to HEP 2. D2 RUE Name Side bilateral Resistance Lvl 1 Tb Equipment Used 1. high wall anchor 2. stepped on end of band to anchor Reps/Minutes 1 x10 ea 2. x4 dc'd d/t pt compensations and pain at endrange Comments vc TrA, breath, c-sp alignment, scapular setting throughout ROM; painfree wall slide Standing Exercise wall slide with step to wall flex with step back and Name lower wo use of wall Side bilateral Resistance added to HEP Equipment Used wall Reps/Minutes x10 Comments tactile cues for scapular setting, cervical alignment, vc breath Shoulder IR Standing Exercise HEP review Name Side bilateral Resistance L1 TB Equipment Used towel roll Reps/Minutes X10 each side Comments cues TrA, breath, c-sp alignment, scapular setting throughout ROM; painfree Shoulder ER Standing Exercise HEP review Name Side bilateral Resistance Lvl 1 Tb Equipment Used towel roll Reps/Minutes x10 each side Comments cues TrA, breath, c-sp alignment, scapular setting throughout ROM; painfree Manual Therapy Treatment Consent Patient gave verbal Yes consent for manual treatment Soft Tissue Mobilization Rhomboid Body Location trigger point along medial border of R scapula Mobilization Type Cross-Friction,Sustained Pressure,Trigger Point Release Intensity/Depth Moderate Body Position Standing Comments after pain with attempting resisted D2 UE pattern. pt edu for self-STM with tennis ball. Pt i/s in self- STM using wall corner 2 min - positive feedback response. Self-Care/Home Management Treatment Education Patient Education Body Mechanics,Home Exercise Program,Pain Management, Posture Other Education -Edu to pt w/ visual aids for TrA m. anatomy, interrelationship with diaphragm and pelvic floor, and breathwork. HEP review focus on maintaining cervical alignment, scapular setting, TrA and breathwork. -Pt i/s in self-monitoring TrA medially to ASIS in standing. -Discussion w/ pt to reframe weakness as muscle imbalance and pt i/s in Thank you, Body mantra which is incorporated into session. PT-OP-T Assessment and Plan Start: 09/21/24 13:02 Freq: Status: Active Protocol: Document 11/05/24 14:36 NBM (Rec: 11/05/24 16:08 NBM Laptop) Physical Therapy Assessment Goals 2 Impairment Strength Short Term Goal (STG Pt will demonstrate improved R shoulder ER strength ) from 4 to 4+ MMT without pain to improve function STG Duration 6 weeks Status: MET 7/3 Residential Goal (LTG) Pt will demonstrate improved B shoulder strength to 5/5 pain free MMT to improve function and return to sport LTG Duration 12 weeks 1 Impairment ROM Short Term Goal (STG Pt will demonstrate active R shoulder flex to 150 ) degrees without pain to improve function. STG Duration 6 weeks Status: MET 155 degrees 7/3 Residential Goal (LTG) Pt will demonstrate active R shoulder flex to 170 degrees without pain to improve function. LTG Duration 12 weeks Assessment Summary Assessment Treatment focus on HEP review and scapular stabilization and education. Edu to pt w/ visual aids for TrA m. anatomy, interrelationship with diaphragm and pelvic floor, and breathwork. HEP review focus on maintaining cervical alignment, scapular setting, TrA and breathwork, and pt educated on purpose of exercises . Cues for TrA corrects pt's thoracolumbar extension compensation, and pt demos greatly improved self- awareness and ability to self-correct scapular setting and TrA. Physical Therapy Plan Frequency and Duration Frequency of 2x/Week Treatment Duration of 12 treatment (weeks) Plan of Care Start 09/21/24 Date Plan of Care End 12/14/24 Date Therapeutic Interventions Therapeutic Home Exercise Program,Joint Mobilizations,Manual Interventions Therapy,Neuromuscular Re-education,Soft Tissue Mobilization,Taping,Therapeutic Activities,Therapeutic Exercises Modalities Cold Pack/Ice Massage,Hot Packs,Ultrasound Next Visit Focus/Plan Next Note Type Treatment Note Next Visit Plan STM to R levator scap, mobs to AC joint, progress R ER, TB diagonal pull downs, standing blade in pain free range
--- NOTE | 2024-11-09 15:18 | PT.OTN ---
Current Diagnoses Pain in left shoulder (11/09/24) Physical Therapy Treatment Note PT-OP-A Visit Information Start: 09/21/24 13:02 Freq: Status: Active Protocol: Document 11/09/24 14:33 MB (Rec: 11/09/24 15:07 MB Desktop) Out-Patient Physical Therapy Visit Information Visit Information Visit Type Treatment Note Visit Start Time 14:33 Visit Stop Time 15:13 Visit Number 13 Number of COMMERCIAL LITIGATION ATTORNEY Visits 0 Evaluation Information Evaluation Date 09/21/24 PT-OP-B Current Condition Start: 09/21/24 13:02 Freq: Status: Active Protocol: Document 09/21/24 13:03 SHUTTLECOCK ASSEMBLER (Rec: 09/21/24 13:55 SHUTTLECOCK ASSEMBLER Laptop) Current Condition History of Current Condition Onset Date ~June of 2024 Current Complaints B shoulder pain History of Current 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 For a few months I've been getting rotator cuff pain R worse than L and is affecting my striking. Fights L handed, R strike hurts worse. Pain up to 1-3/10 with a catch and affects his fluidity of movement. Side and belly sleeper and is affecting my sleep. It's affecting my ability to train and progress. I was planning to get certified in October but am now pushing it to December. Reports no history of shoulder injury. Has discomfort in L neck while rotating to L. No pain at rest, has pain when leaning on shoulder. Treatment Goals Patient/Caregiver To improve pain in B shoulders to be able to train at a Goals level that allows him to do certification for krav rohith and sleep at night. PT-OP-C Subjective Start: 09/21/24 13:02 Freq: Status: Active Protocol: Document 11/09/24 14:33 MB (Rec: 11/09/24 15:07 MB Desktop) OP-PT Subjective Patient Comments Patient Comments Pt is feeling better since starting PT. He is doing his exercises every morning. PT-OP-F Manual Assessment Start: 09/21/24 13:02 Freq: Status: Active Protocol: Document 09/21/24 13:03 SHUTTLECOCK ASSEMBLER (Rec: 09/21/24 13:55 SHUTTLECOCK ASSEMBLER Laptop) Manual Assessments Soft Tissue Assessment Soft Tissue Mobility Decreased soft tissue mobility to B pec majors, L more Assessment impaired than R Joint Mobility Assessment Joint Mobility Slight decreased capsule mobility L shoulder superiorly Assessment PT-OP-K Range of Motion Start: 09/21/24 13:02 Freq: Status: Active Protocol: Document 10/21/24 10:48 SHUTTLECOCK ASSEMBLER (Rec: 10/21/24 11:38 SHUTTLECOCK ASSEMBLER Laptop) Shoulder Goniometric Range of Motion Shoulder ROM Limitations Shoulder ROM Pain Limitations Comments R flex 155 degrees pain free L flex 156 degrees pain free R abd 139 degrees pain free L abd 163 degrees pain free R ER 65 degrees pain free L ER 73 degrees pain free R IR functional T5 L IR functional T4 PT-OP-M Strength Start: 09/21/24 13:02 Freq: Status: Active Protocol: Document 10/21/24 10:48 SHUTTLECOCK ASSEMBLER (Rec: 10/21/24 11:38 SHUTTLECOCK ASSEMBLER Laptop) Shoulder Strength Shoulder Manual Muscle Testing L Flexion 5 Normal Extension 5 Normal Abduction (C5) 4+ Good+ External Rotation 4+ Good+ Internal Rotation 5 Normal Comments pain free R Flexion 5 Normal Extension 5 Normal Abduction (C5) 5 Normal External Rotation 4+ Good+ Internal Rotation 5 Normal Comments slight pain with ER Elbow/Forearm Strength Elbow and Forearm Manual Muscle Testing L Flexion (C6) 5 Normal Extension (C7) 5 Normal Comments pain free R Flexion (C6) 5 Normal Extension (C7) 5 Normal PT-OP-Q Treatments Start: 09/21/24 13:02 Freq: Status: Active Protocol: Document 11/09/24 14:33 MB (Rec: 11/09/24 15:07 MB Desktop) Manual Therapy Treatment Consent Patient gave verbal Yes consent for manual treatment Other Other Manual Pt prone: rib recoil muscle energy technique to loosen Treatments ribs and pt with increased tension in thoracic spine and first rib, STM and positional release right levator , upper traps, TrP right upper traps and levator and subscap, STM and TrP B infra and also left upper traps. Pt supine: STM pects and B first rib isometric. PT-OP-T Assessment and Plan Start: 09/21/24 13:02 Freq: Status: Active Protocol: Document 11/09/24 14:33 MB (Rec: 11/09/24 15:07 MB Desktop) Physical Therapy Assessment Goals 2 Impairment Strength Short Term Goal (STG Pt will demonstrate improved R shoulder ER strength ) from 4 to 4+ MMT without pain to improve function STG Duration 6 weeks Status: MET 7/3 Soap Drier Operator Goal (LTG) Pt will demonstrate improved B shoulder strength to 5/5 pain free MMT to improve function and return to sport LTG Duration 12 weeks 1 Impairment ROM Short Term Goal (STG Pt will demonstrate active R shoulder flex to 150 ) degrees without pain to improve function. STG Duration 6 weeks Status: MET 155 degrees 7/3 Custodial Goal (LTG) Pt will demonstrate active R shoulder flex to 170 degrees without pain to improve function. LTG Duration 12 weeks Assessment Summary Assessment Pt with increased tension thoracic spine today and may benefit from thoracic mobility work such as open book or other yoga poses, plywood layup line back feeder. Physical Therapy Plan Frequency and Duration Frequency of 2x/Week Treatment Duration of 12 treatment (weeks) Plan of Care Start 09/21/24 Date Plan of Care End 12/14/24 Date Therapeutic Interventions Therapeutic Home Exercise Program,Joint Mobilizations,Manual Interventions Therapy,Neuromuscular Re-education,Soft Tissue Mobilization,Taping,Therapeutic Activities,Therapeutic Exercises Modalities Cold Pack/Ice Massage,Hot Packs,Ultrasound Next Visit Focus/Plan Next Note Type Treatment Note Next Visit Plan Per plan: STM to R levator scap, mobs to AC joint, progress R ER, TB diagonal pull downs, standing blade in pain free range, consider thoracic mobility work as well.
--- NOTE | 2024-11-16 20:01 | PT.OTN ---
Current Diagnoses Pain in left shoulder (11/16/24) Physical Therapy Treatment Note PT-OP-A Visit Information Start: 09/21/24 13:02 Freq: Status: Active Protocol: Document 11/16/24 14:24 COMPOUND COATING MACHINE OFFBEARER (Rec: 11/16/24 15:20 COMPOUND COATING MACHINE OFFBEARER Laptop) Out-Patient Physical Therapy Visit Information Visit Information Visit Type Treatment Note Visit Start Time 14:34 Visit Stop Time 15:18 Visit Number 14 Number of GEAR REPAIR SUPERVISOR Visits 0 PT-OP-B Current Condition Start: 09/21/24 13:02 Freq: Status: Active Protocol: Document 09/21/24 13:03 COMPOUND COATING MACHINE OFFBEARER (Rec: 09/21/24 13:55 COMPOUND COATING MACHINE OFFBEARER Laptop) Current Condition History of Current Condition Onset Date ~June of 2024 Current Complaints B shoulder pain 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 For a few months I've been getting rotator cuff pain R worse than L and is affecting my striking. Fights L handed, R strike hurts worse. Pain up to 1-3/10 with a catch and affects his fluidity of movement. Side and belly sleeper and is affecting my sleep. It's affecting my ability to train and progress. I was planning to get certified in October but am now pushing it to December. Reports no history of shoulder injury. Has discomfort in L neck while rotating to L. No pain at rest, has pain when leaning on shoulder. Treatment Goals Patient/Caregiver To improve pain in B shoulders to be able to train at a Goals level that allows him to do certification for krav rohith and sleep at night. PT-OP-C Subjective Start: 09/21/24 13:02 Freq: Status: Active Protocol: Document 11/16/24 14:24 COMPOUND COATING MACHINE OFFBEARER (Rec: 11/16/24 15:20 COMPOUND COATING MACHINE OFFBEARER Laptop) OP-PT Subjective Patient Comments Patient Comments Pt reports feeling really good with strength and ROM of B shoulders and felt that his posture has improved a lot. R abd 164, flex 150 degrees with slight painful catch L abd 164, flex 152 degrees PT-OP-F Manual Assessment Start: 09/21/24 13:02 Freq: Status: Active Protocol: Document 09/21/24 13:03 COMPOUND COATING MACHINE OFFBEARER (Rec: 09/21/24 13:55 COMPOUND COATING MACHINE OFFBEARER Laptop) Manual Assessments Soft Tissue Assessment Soft Tissue Mobility Decreased soft tissue mobility to B pec majors, L more Assessment impaired than R Joint Mobility Assessment Joint Mobility Slight decreased capsule mobility L shoulder superiorly Assessment PT-OP-K Range of Motion Start: 09/21/24 13:02 Freq: Status: Active Protocol: Document 10/21/24 10:48 COMPOUND COATING MACHINE OFFBEARER (Rec: 10/21/24 11:38 COMPOUND COATING MACHINE OFFBEARER Laptop) Shoulder Goniometric Range of Motion Shoulder ROM Limitations Shoulder ROM Pain Limitations Comments R flex 155 degrees pain free L flex 156 degrees pain free R abd 139 degrees pain free L abd 163 degrees pain free R ER 65 degrees pain free L ER 73 degrees pain free R IR functional T5 L IR functional T4 PT-OP-M Strength Start: 09/21/24 13:02 Freq: Status: Active Protocol: Document 10/21/24 10:48 COMPOUND COATING MACHINE OFFBEARER (Rec: 10/21/24 11:38 COMPOUND COATING MACHINE OFFBEARER Laptop) Shoulder Strength Shoulder Manual Muscle Testing L Flexion 5 Normal Extension 5 Normal Abduction (C5) 4+ Good+ External Rotation 4+ Good+ Internal Rotation 5 Normal Comments pain free R Flexion 5 Normal Extension 5 Normal Abduction (C5) 5 Normal External Rotation 4+ Good+ Internal Rotation 5 Normal Comments slight pain with ER Elbow/Forearm Strength Elbow and Forearm Manual Muscle Testing L Flexion (C6) 5 Normal Extension (C7) 5 Normal Comments pain free R Flexion (C6) 5 Normal Extension (C7) 5 Normal PT-OP-Q Treatments Start: 09/21/24 13:02 Freq: Status: Active Protocol: Document 11/16/24 14:24 COMPOUND COATING MACHINE OFFBEARER (Rec: 11/16/24 15:20 COMPOUND COATING MACHINE OFFBEARER Laptop) Therapeutic Exercises Supine Exercises Open book Side bilateral Reps/Minutes x10 Prone Exercises Cat cow Reps/Minutes x10 Comments good form with 1 VC only for full ROM Thread the needle Side bilateral Reps/Minutes x10 with 5s hold each side Manual Therapy Treatment Consent Patient gave verbal Yes consent for manual treatment Soft Tissue Mobilization UT,levator scap Body Location B levator scap and upper trap Mobilization Type Sustained Pressure,Trigger Point Release Intensity/Depth Deep Body Position Sidelying Comments mild trigger points only at B lev scaps PT-OP-T Assessment and Plan Start: 09/21/24 13:02 Freq: Status: Active Protocol: Document 11/16/24 14:24 COMPOUND COATING MACHINE OFFBEARER (Rec: 11/16/24 15:20 COMPOUND COATING MACHINE OFFBEARER Laptop) Physical Therapy Assessment Goals 2 Impairment Strength Short Term Goal (STG Pt will demonstrate improved R shoulder ER strength ) from 4 to 4+ MMT without pain to improve function STG Duration 6 weeks Status: MET 7/3 Shelter Goal (LTG) Pt will demonstrate improved B shoulder strength to 5/5 pain free MMT to improve function and return to sport LTG Duration 12 weeks 1 Impairment ROM Short Term Goal (STG Pt will demonstrate active R shoulder flex to 150 ) degrees without pain to improve function. STG Duration 6 weeks Status: MET 155 degrees 7/3 Shelter Goal (LTG) Pt will demonstrate active R shoulder flex to 170 degrees without pain to improve function. LTG Duration 12 weeks Assessment Summary Assessment Pt tolerated MT well with notably decreased trigger points this session, tolerated newly added thoracic mobility well. No pain with treatments. R abd 158 without catch, flex 151 pain free L abd 158 without pain, flex 158 pain free Physical Therapy Plan Frequency and Duration Frequency of 2x/Week Treatment Duration of 12 treatment (weeks) Plan of Care Start 09/21/24 Date Plan of Care End 12/14/24 Date Therapeutic Interventions Therapeutic Home Exercise Program,Joint Mobilizations,Manual Interventions Therapy,Neuromuscular Re-education,Soft Tissue Mobilization,Taping,Therapeutic Activities,Therapeutic Exercises Modalities Cold Pack/Ice Massage,Hot Packs,Ultrasound Next Visit Focus/Plan Next Note Type Treatment Note Next Visit Plan Per plan: STM to R levator scap, mobs to AC joint, progress R ER, TB diagonal pull downs, standing blade in pain free range, thoracic mobility HEP
--- NOTE | 2024-11-18 18:47 | PT.OTN ---
Current Diagnoses Pain in left shoulder (11/18/24) Physical Therapy Treatment Note PT-OP-A Visit Information Start: 09/21/24 13:02 Freq: Status: Active Protocol: Document 11/18/24 14:30 MANUAL EQUIPMENT MECHANIC (Rec: 11/18/24 15:22 MANUAL EQUIPMENT MECHANIC Laptop) Out-Patient Physical Therapy Visit Information Visit Information Visit Type Treatment Note Visit Start Time 14:35 Visit Stop Time 15:15 Visit Number 15 Number of POLICY CHANGE CLERK Visits 0 PT-OP-B Current Condition Start: 09/21/24 13:02 Freq: Status: Active Protocol: Document 09/21/24 13:03 MANUAL EQUIPMENT MECHANIC (Rec: 09/21/24 13:55 MANUAL EQUIPMENT MECHANIC Laptop) Current Condition History of Current Condition Onset Date ~June of 2024 Current Complaints B shoulder pain History of Current 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 For a few months I've been getting rotator cuff pain R worse than L and is affecting my striking. Fights L handed, R strike hurts worse. Pain up to 1-3/10 with a catch and affects his fluidity of movement. Side and belly sleeper and is affecting my sleep. It's affecting my ability to train and progress. I was planning to get certified in October but am now pushing it to December. Reports no history of shoulder injury. Has discomfort in L neck while rotating to L. No pain at rest, has pain when leaning on shoulder. Treatment Goals Patient/Caregiver To improve pain in B shoulders to be able to train at a Goals level that allows him to do certification for krav rohith and sleep at night. PT-OP-C Subjective Start: 09/21/24 13:02 Freq: Status: Active Protocol: Document 11/18/24 14:30 MANUAL EQUIPMENT MECHANIC (Rec: 11/18/24 16:56 MANUAL EQUIPMENT MECHANIC Laptop) OP-PT Subjective Patient Comments Patient Comments Pt reports he wasn't able to practice Accolade jabbing at the gym, B shoulders feel great but with occasional pain free catching to R shoulder and reports L shoulder feels really good with no complaints. Patient Reported Improving Progress PT-OP-F Manual Assessment Start: 09/21/24 13:02 Freq: Status: Active Protocol: Document 09/21/24 13:03 MANUAL EQUIPMENT MECHANIC (Rec: 09/21/24 13:55 MANUAL EQUIPMENT MECHANIC Laptop) Manual Assessments Soft Tissue Assessment Soft Tissue Mobility Decreased soft tissue mobility to B pec majors, L more Assessment impaired than R Joint Mobility Assessment Joint Mobility Slight decreased capsule mobility L shoulder superiorly Assessment PT-OP-K Range of Motion Start: 09/21/24 13:02 Freq: Status: Active Protocol: Document 10/21/24 10:48 MANUAL EQUIPMENT MECHANIC (Rec: 10/21/24 11:38 MANUAL EQUIPMENT MECHANIC Laptop) Shoulder Goniometric Range of Motion Shoulder ROM Limitations Shoulder ROM Pain Limitations Comments R flex 155 degrees pain free L flex 156 degrees pain free R abd 139 degrees pain free L abd 163 degrees pain free R ER 65 degrees pain free L ER 73 degrees pain free R IR functional T5 L IR functional T4 PT-OP-M Strength Start: 09/21/24 13:02 Freq: Status: Active Protocol: Document 10/21/24 10:48 MANUAL EQUIPMENT MECHANIC (Rec: 10/21/24 11:38 MANUAL EQUIPMENT MECHANIC Laptop) Shoulder Strength Shoulder Manual Muscle Testing L Flexion 5 Normal Extension 5 Normal Abduction (C5) 4+ Good+ External Rotation 4+ Good+ Internal Rotation 5 Normal Comments pain free R Flexion 5 Normal Extension 5 Normal Abduction (C5) 5 Normal External Rotation 4+ Good+ Internal Rotation 5 Normal Comments slight pain with ER Elbow/Forearm Strength Elbow and Forearm Manual Muscle Testing L Flexion (C6) 5 Normal Extension (C7) 5 Normal Comments pain free R Flexion (C6) 5 Normal Extension (C7) 5 Normal PT-OP-Q Treatments Start: 09/21/24 13:02 Freq: Status: Active Protocol: Document 11/18/24 14:30 MANUAL EQUIPMENT MECHANIC (Rec: 11/18/24 15:22 MANUAL EQUIPMENT MECHANIC Laptop) Therapeutic Exercises Supine Exercises Shoulder ER/IR Supine Exercise Name at 0 degrees, 45 degrees, 90 degrees shoulder abd Side right Reps/Minutes x10 each angle Comments clicking with IR at 90 degrees, improved with ant>post of humerus Sitting Exercises ER/IR MMT Comments R ER 4+/5, IR 4+/5 pain free, L ER/IR 5/5 pain free Standing Exercises Body blade Standing Exercise horizontal abd/add, shoulder flex/ext at shoulder Name height Side right Reps/Minutes 30s each Manual Therapy Treatment Consent Patient gave verbal Yes consent for manual treatment Soft Tissue Mobilization Self mob Body Location B UT and supraspinatus Mobilization Type Instrument Assisted,Trigger Point Release Body Position Sitting Comments self mob using theracane Supraspinatus Body Location R Mobilization Type Rolling Intensity/Depth Moderate Body Position Sitting Comments STM Joint Mobilizations GH Direction post with distraction, distraction at multiple angles Grade III Body Position Supine Reps/Duration x10 each Comments positive results PT-OP-T Assessment and Plan Start: 09/21/24 13:02 Freq: Status: Active Protocol: Document 11/18/24 14:30 MANUAL EQUIPMENT MECHANIC (Rec: 11/18/24 15:22 MANUAL EQUIPMENT MECHANIC Laptop) Physical Therapy Assessment Goals 2 Impairment Strength Short Term Goal (STG Pt will demonstrate improved R shoulder ER strength ) from 4 to 4+ MMT without pain to improve function STG Duration 6 weeks Status: MET 7/3 Chemical Laboratory Chief Goal (LTG) Pt will demonstrate improved B shoulder strength to 5/5 pain free MMT to improve function and return to sport LTG Duration 12 weeks 1 Impairment ROM Short Term Goal (STG Pt will demonstrate active R shoulder flex to 150 ) degrees without pain to improve function. STG Duration 6 weeks Status: MET 155 degrees 7/3 Chemical Laboratory Chief Goal (LTG) Pt will demonstrate active R shoulder flex to 170 degrees without pain to improve function. LTG Duration 12 weeks Assessment Summary Assessment Pt with catching to R shoulder during active IR with shoulder at 90 degrees abd, improved with STM to supraspinatus and ant>post mob to humerus during movement. Pt tolerated R GH distraction well and ant> post mobing of humerus. Physical Therapy Plan Frequency and Duration Frequency of 2x/Week Treatment Duration of 12 treatment (weeks) Plan of Care Start 09/21/24 Date Plan of Care End 12/14/24 Date Next Visit Focus/Plan Next Note Type Treatment Note Next Visit Plan cupping to R supraspinatus/UT, R stretch of ERs
--- NOTE | 2024-11-23 19:56 | PT.OTN ---
Current Diagnoses Pain in left shoulder (11/23/24) Physical Therapy Treatment Note PT OP: Cervical/Upper Extremity Start: 11/23/24 13:50 Freq: Status: Active Protocol: Document 11/23/24 13:51 TRASH COLLECTOR (Rec: 11/23/24 14:39 TRASH COLLECTOR Laptop) Out-Patient Physical Therapy Visit Information Visit Information Visit Type Progress Note Visit Start Time 13:49 Visit Stop Time 14:37 Visit Number 16 Number of BAKERY HELPER Visits 0 OP-PT Subjective Patient Comments Patient Comments Pt reports 2 days ago he felt a pain in his RLE in calf and has followed up with doctor to rule out DVT d/t history of this and stopped blood thinners a few months ago with doctor's approval. Therefore has not done his HEP or martial arts since then while waiting for US. Shoulder Strength Shoulder Manual Muscle Testing L Flexion 5 Normal Extension 5 Normal Abduction (C5) 5 Normal Adduction 5 Normal External Rotation 5 Normal Internal Rotation 4+ Good+ Comments pain free R Flexion 4+ Good+ Extension 5 Normal Abduction (C5) 5 Normal Adduction 5 Normal External Rotation 5 Normal Internal Rotation 4+ Good+ Comments pain free Cardio Equipment Upper Body Ergometer (UBE) Duration (Minutes) 4 Seat Position 12 Other 2 mins forward, 2 mins backward for warm up Manual Therapy Treatment Consent Patient gave verbal Yes consent for manual treatment Soft Tissue Mobilization UT,levator scap Body Location B levator scap and upper trap Mobilization Type Instrument Assisted,Sustained Pressure,Trigger Point Release Intensity/Depth Deep Body Position Sitting Comments STM with active stretching, VC for deep breathing during TPR Cupping to B levator scap and upper trap Physical Therapy Assessment Goals 2 Impairment Strength Short Term Goal (STG Pt will demonstrate improved R shoulder ER strength ) from 4 to 4+ MMT without pain to improve function STG Duration 6 weeks Status: MET 7/3 Alf Goal (LTG) Pt will demonstrate improved B shoulder strength to 5/5 pain free MMT to improve function and return to sport 11/23: Progressing, met in all but IR and flex 4+/5 pain free LTG Duration 12 weeks 1 Impairment ROM Short Term Goal (STG Pt will demonstrate active R shoulder flex to 150 ) degrees without pain to improve function. STG Duration 6 weeks Status: MET 155 degrees 7/3 Alf Goal (LTG) Pt will demonstrate active R shoulder flex to 160 degrees without pain to improve function. 8: Progressing, 152 degrees without pain. Adjusted AROM goal to 160 as this range is still functional but more realistic goal d/t pt's muscular body type. LTG Duration 12 weeks Assessment Summary Assessment Pt continues to progress towards RUE strength goal and performs all without pain however 5/5 goal still not met with shoulder flex and IR. Pt has plateaued with B shoulder flex/abd to 150-160 degrees for past several sessions and performs without clicking or pain, AROM goal adjusted this session from 170 degrees of flex to 160 as a more realistic but still functional range d/t pt's body build. Pt tolerated introduction of cupping to B UT and LS muscles well this session. Physical Therapy Plan Frequency and Duration Frequency of 2x/Week Treatment Duration of 12 treatment (weeks) Plan of Care Start 09/21/24 Date Plan of Care End 12/14/24 Date Next Visit Focus/Plan Next Note Type Treatment Note Next Visit Plan cupping to B lats, stretching to R ERs with HEP, introduce shuttle rebounder, body blade, strengthen R shoulder flex and IR PT-OP-A Visit Information Start: 09/21/24 13:02 Freq: Status: Active Protocol: Document 11/18/24 14:30 TRASH COLLECTOR (Rec: 11/18/24 15:22 TRASH COLLECTOR Laptop) Out-Patient Physical Therapy Visit Information Visit Information Visit Type Treatment Note Visit Start Time 14:35 Visit Stop Time 15:15 Visit Number 15 Number of BAKERY HELPER Visits 0 PT-OP-B Current Condition Start: 09/21/24 13:02 Freq: Status: Active Protocol: Document 09/21/24 13:03 TRASH COLLECTOR (Rec: 09/21/24 13:55 TRASH COLLECTOR Laptop) Current Condition History of Current Condition Onset Date ~June of 2024 Current Complaints B shoulder pain History of Current 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 For a few months I've been getting rotator cuff pain R worse than L and is affecting my striking. Fights L handed, R strike hurts worse. Pain up to 1-3/10 with a catch and affects his fluidity of movement. Side and belly sleeper and is affecting my sleep. It's affecting my ability to train and progress. I was planning to get certified in October but am now pushing it to December. Reports no history of shoulder injury. Has discomfort in L neck while rotating to L. No pain at rest, has pain when leaning on shoulder. Treatment Goals Patient/Caregiver To improve pain in B shoulders to be able to train at a Goals level that allows him to do certification for [employer] and sleep at night. PT-OP-C Subjective Start: 09/21/24 13:02 Freq: Status: Active Protocol: Document 11/18/24 14:30 TRASH COLLECTOR (Rec: 11/18/24 16:56 TRASH COLLECTOR Laptop) OP-PT Subjective Patient Comments Patient Comments Pt reports he wasn't able to practice Jiu Jitsu jabbing at the gym, B shoulders feel great but with occasional pain free catching to R shoulder and reports L shoulder feels really good with no complaints. Patient Reported Improving Progress PT-OP-F Manual Assessment Start: 09/21/24 13:02 Freq: Status: Active Protocol: Document 09/21/24 13:03 TRASH COLLECTOR (Rec: 09/21/24 13:55 TRASH COLLECTOR Laptop) Manual Assessments Soft Tissue Assessment Soft Tissue Mobility Decreased soft tissue mobility to B pec majors, L more Assessment impaired than R Joint Mobility Assessment Joint Mobility Slight decreased capsule mobility L shoulder superiorly Assessment PT-OP-K Range of Motion Start: 09/21/24 13:02 Freq: Status: Active Protocol: Document 10/21/24 10:48 TRASH COLLECTOR (Rec: 10/21/24 11:38 TRASH COLLECTOR Laptop) Shoulder Goniometric Range of Motion Shoulder ROM Limitations Shoulder ROM Pain Limitations Comments R flex 155 degrees pain free L flex 156 degrees pain free R abd 139 degrees pain free L abd 163 degrees pain free R ER 65 degrees pain free L ER 73 degrees pain free R IR functional T5 L IR functional T4 PT-OP-M Strength Start: 09/21/24 13:02 Freq: Status: Active Protocol: Document 10/21/24 10:48 TRASH COLLECTOR (Rec: 10/21/24 11:38 TRASH COLLECTOR Laptop) Shoulder Strength Shoulder Manual Muscle Testing L Flexion 5 Normal Extension 5 Normal Abduction (C5) 4+ Good+ External Rotation 4+ Good+ Internal Rotation 5 Normal Comments pain free R Flexion 5 Normal Extension 5 Normal Abduction (C5) 5 Normal External Rotation 4+ Good+ Internal Rotation 5 Normal Comments slight pain with ER Elbow/Forearm Strength Elbow and Forearm Manual Muscle Testing L Flexion (C6) 5 Normal Extension (C7) 5 Normal Comments pain free R Flexion (C6) 5 Normal Extension (C7) 5 Normal PT-OP-Q Treatments Start: 09/21/24 13:02 Freq: Status: Active Protocol: Document 11/18/24 14:30 TRASH COLLECTOR (Rec: 11/18/24 15:22 TRASH COLLECTOR Laptop) Therapeutic Exercises Supine Exercises Shoulder ER/IR Supine Exercise Name at 0 degrees, 45 degrees, 90 degrees shoulder abd Side right Reps/Minutes x10 each angle Comments clicking with IR at 90 degrees, improved with ant>post of humerus Sitting Exercises ER/IR MMT Comments R ER 4+/5, IR 4+/5 pain free, L ER/IR 5/5 pain free Standing Exercises Body blade Standing Exercise horizontal abd/add, shoulder flex/ext at shoulder Name height Side right Reps/Minutes 30s each Manual Therapy Treatment Consent Patient gave verbal Yes consent for manual treatment Soft Tissue Mobilization Self mob Body Location B UT and supraspinatus Mobilization Type Instrument Assisted,Trigger Point Release Body Position Sitting Comments self mob using theracane Supraspinatus Body Location R Mobilization Type Rolling Intensity/Depth Moderate Body Position Sitting Comments STM Joint Mobilizations GH Direction post with distraction, distraction at multiple angles Grade III Body Position Supine Reps/Duration x10 each Comments positive results PT-OP-T Assessment and Plan Start: 09/21/24 13:02 Freq: Status: Active Protocol: Document 11/18/24 14:30 TRASH COLLECTOR (Rec: 11/18/24 15:22 TRASH COLLECTOR Laptop) Physical Therapy Assessment Goals 2 Impairment Strength Short Term Goal (STG Pt will demonstrate improved R shoulder ER strength ) from 4 to 4+ MMT without pain to improve function STG Duration 6 weeks Status: MET 7/3 Dry Cleaning Machine Operator Goal (LTG) Pt will demonstrate improved B shoulder strength to 5/5 pain free MMT to improve function and return to sport LTG Duration 12 weeks 1 Impairment ROM Short Term Goal (STG Pt will demonstrate active R shoulder flex to 150 ) degrees without pain to improve function. STG Duration 6 weeks Status: MET 155 degrees 7/3 Dry Cleaning Machine Operator Goal (LTG) Pt will demonstrate active R shoulder flex to 170 degrees without pain to improve function. LTG Duration 12 weeks Assessment Summary Assessment Pt with catching to R shoulder during active IR with shoulder at 90 degrees abd, improved with STM to supraspinatus and ant>post mob to humerus during movement. Pt tolerated R GH distraction well and ant> post mobing of humerus. Physical Therapy Plan Frequency and Duration Frequency of 2x/Week Treatment Duration of 12 treatment (weeks) Plan of Care Start 09/21/24 Date Plan of Care End 12/14/24 Date Next Visit Focus/Plan Next Note Type Treatment Note Next Visit Plan cupping to R supraspinatus/UT, R stretch of ERs
--- NOTE | 2024-11-25 19:58 | PT.OTN ---
Current Diagnoses Pain in left shoulder (11/25/24) Physical Therapy Treatment Note PT OP: Cervical/Upper Extremity Start: 11/23/24 13:50 Freq: Status: Active Protocol: Document 11/25/24 17:06 FAMILY SERVICE ASSISTANT (Rec: 11/25/24 18:01 FAMILY SERVICE ASSISTANT Laptop) Out-Patient Physical Therapy Visit Information Visit Information Visit Type Treatment Note Visit Start Time 17:04 Visit Stop Time 17:45 Visit Number 17 Number of LANDSCAPE ARCHITECT Visits 0 OP-PT Subjective Patient Comments Patient Comments Pt reports he just received positive DVT in R calf results shortly before PT session and is very discouraged and would like to start preparing for D/C from PT in next few sessions as his focus will be elsewhere. PT confirms with pt that he started back on his blood thinner medication 3 days ago and therefore PT will continue this session with light UE work only. Pt has appointment tomorrow with physician to discuss DVT. Therapeutic Exercises Supine Exercises Lat stretch Supine Exercise Name dowel overhead hang Side bilateral Resistance gravity Reps/Minutes 60s Comments increased pain to R GH joint Shoulder ER/IR Supine Exercise Name IR/ER at shoulder 0 degrees, 45 degrees, 90 degrees Side right Resistance 3# dumbbell Reps/Minutes 10x2 each level Comments slight pain & clicking ER at 90, tight and ant trans of hum head IR at 90 Standing Exercises Dowel Standing Exercise 1. B shoulder flex overhead w/ dowel 2. overhead lat Name pull downs w/ dowel Side bilateral Reps/Minutes x10 Comments 1. without pain 2. pain to R GH joint Other Exercises D/C HEP Other Exercise Name Discussion of what to be on D/C HEP, will continue to add at each session Comments 1. pec stretch on FR 2. Is,Ts,Ws,Ys 3. TA/core exercises Manual Therapy Treatment Consent Patient gave verbal Yes consent for manual treatment Soft Tissue Mobilization Pec Body Location R humeral attachment Intensity/Depth Deep Body Position Supine Comments STM and TFM with improved positioning of humeral head in IR Joint Mobilizations GH Direction post with distraction, distraction at multiple angles Grade III Body Position Supine Reps/Duration x10 each Comments improved positioning of R humeral head in IR after mob Physical Therapy Assessment Goals 2 Impairment Strength Short Term Goal (STG Pt will demonstrate improved R shoulder ER strength ) from 4 to 4+ MMT without pain to improve function STG Duration 6 weeks Status: MET 7/3 Snf Goal (LTG) Pt will demonstrate improved B shoulder strength to 5/5 pain free MMT to improve function and return to sport 11/23: Progressing, met in all but IR and flex 4+/5 pain free LTG Duration 12 weeks 1 Impairment ROM Short Term Goal (STG Pt will demonstrate active R shoulder flex to 150 ) degrees without pain to improve function. STG Duration 6 weeks Status: MET 155 degrees 7/3 Fulfillment Associate Goal (LTG) Pt will demonstrate active R shoulder flex to 160 degrees without pain to improve function. 11/23: Progressing, 152 degrees without pain. Adjusted AROM goal to 160 as this range is still functional but more realistic goal d/t pt's muscular body type. LTG Duration 12 weeks Assessment Summary Assessment Pt with increased R shoulder pain/clicking, describes as inside shoulder joint, during lat overhead pull downs with unweighted dowel and persists with supine ER at 90 degrees, unable to find cause of pain at this session. Pt with tightness discomfort and visible ant translation of humeral head with IR at 90 degrees improved after post capsule joint mobs and STM to humeral pec insertion. Continue PT to find cause of pain/clicking to R shoulder and creating HEP for D/C in next few sessions. Physical Therapy Plan Frequency and Duration Frequency of 2x/Week Treatment Duration of 12 treatment (weeks) Plan of Care Start 09/21/24 Date Plan of Care End 12/14/24 Date Therapeutic Interventions Therapeutic Home Exercise Program,Joint Mobilizations,Manual Interventions Therapy,Neuromuscular Re-education,Soft Tissue Mobilization,Taping,Therapeutic Activities,Therapeutic Exercises Modalities Cold Pack/Ice Massage,Hot Packs,Ultrasound Next Visit Focus/Plan Next Note Type Treatment Note Next Visit Plan Continue creating HEP program for D/C, STM to L pec and post GH mobs, standing core strengthening-PPT against wall and pallof press
--- NOTE | 2024-12-02 18:38 | PT.OTN ---
Current Diagnoses Pain in left shoulder (12/02/24) Physical Therapy Treatment Note PT OP: Cervical/Upper Extremity Start: 11/23/24 13:50 Freq: Status: Active Protocol: Document 12/02/24 17:11 SUPERVISOR FIREWORKS ASSEMBLY (Rec: 12/02/24 18:38 SUPERVISOR FIREWORKS ASSEMBLY Laptop) Out-Patient Physical Therapy Visit Information Visit Information Visit Type Treatment Note Visit Start Time 17:08 Visit Stop Time 17:51 Visit Number 18 Number of PSYCHOLOGIST MILITARY PERSONNEL Visits 0 Progress Note Due 12/23/24 OP-PT Subjective Patient Comments Patient Comments Pt reports he saw his doctor who cleared him for [employer] but not contact sports like [employer]. Pt reports R shoulder had significant increased pain with movement after last session and has rested this whole week but without ice or ibuprofen and has felt progressively better but not back to how good it felt before last session. Shoulder Strength Shoulder Manual Muscle Testing R Flexion 4 Good Abduction (C5) 5 Normal External Rotation 4 Good Internal Rotation 5 Normal Comments without pain but feels weakness and working hard of the muscles Therapeutic Exercises Sidelying Exercises shoulder ER AROM Sidelying Exercise instructed to perform as HEP until next session Name Side right Resistance gravity Equipment Used towel roll under elbow Reps/Minutes 10x2 Comments without pain Sitting Exercises Shoulder scaption Sitting Exercise instructed to perform as HEP until next session Name Side right Resistance gravity Reps/Minutes x10 Comments clicking, improved with scap retract and depress position Standing Exercises Scaption Side right Resistance L1 TB Reps/Minutes x10 Comments pain free but feels muscle fatiguing Rows Side bilateral Resistance L1 TB Reps/Minutes 10x2 Comments without pain Shoulder ER Side right Resistance L1 TB Equipment Used towel roll under elbow Reps/Minutes x10 Comments pain free but feels muscle fatiguing Manual Therapy Treatment Consent Patient gave verbal Yes consent for manual treatment Soft Tissue Mobilization Supraspinatus Body Location R Mobilization Type Rolling Intensity/Depth Superficial Body Position Sitting Comments STM Pec Body Location R humeral and clavicle attachments Intensity/Depth Moderate Body Position Supine Comments STM and TFM Joint Mobilizations scap Joint R Direction dep/elevation, abd/add Grade III Body Position Sidelying Reps/Duration X 10 each direction each UE GH Joint R Direction post with distraction, distraction at multiple angles Grade III Body Position Supine Reps/Duration 10x2 Comments improved positioning of R humeral head Physical Therapy Assessment Impairments Impairments Activity Tolerance,Functional Activities,Pain,ROM,Soft Tissue Mobility,Strength Goals 2 Impairment Strength Short Term Goal (STG Pt will demonstrate improved R shoulder ER strength ) from 4 to 4+ MMT without pain to improve function STG Duration 6 weeks Status: MET 7/3 Correction Goal (LTG) Pt will demonstrate improved B shoulder strength to 5/5 pain free MMT to improve function and return to sport 11/23: Progressing, met in all but IR and flex 4+/5 pain free LTG Duration 12 weeks 1 Impairment ROM Short Term Goal (STG Pt will demonstrate active R shoulder flex to 150 ) degrees without pain to improve function. STG Duration 6 weeks Status: MET 155 degrees 7/3 Outdoor Pursuits Instructor Goal (LTG) Pt will demonstrate active R shoulder flex to 160 degrees without pain to improve function. 11/23: Progressing, 152 degrees without pain. Adjusted AROM goal to 160 as this range is still functional but more realistic goal d/t pt's muscular body type. LTG Duration 12 weeks Assessment Summary Assessment Assessed R shoulder strength, all motions pain free but with increased weakness to flex and ER. Performed light STM and post GH joint mobs, trialed ER and flex with L1 TB in pain free range but with fatigue after x10 reps and decreased resistance down to gravity with both motions to perform as HEP until next session. Increased pain and clicking to R shoulder possibly supra tendon during scaption but improved with scapular positioning. Continue with light weight strengthening and light STM and GH mobs until R shoulder improves. Physical Therapy Plan Frequency and Duration Frequency of 2x/Week Treatment Duration of 12 treatment (weeks) Plan of Care Start 09/21/24 Date Plan of Care End 12/14/24 Date Next Visit Focus/Plan Next Note Type Treatment Note Next Visit Plan Continue with light weight strengthening and light STM and GH mobs until R shoulder improves. Standing core strengthening: PPT against wall, pall of press
--- NOTE | 2024-12-07 18:26 | PT.OTN ---
Current Diagnoses Pain in left shoulder (12/07/24) Physical Therapy Treatment Note PT OP: Cervical/Upper Extremity Start: 11/23/24 13:50 Freq: Status: Active Protocol: Document 12/07/24 13:47 OFFICE MACHINE TECHNICIAN (Rec: 12/07/24 14:36 OFFICE MACHINE TECHNICIAN Laptop) Out-Patient Physical Therapy Visit Information Visit Information Visit Type Treatment Note Visit Start Time 13:49 Visit Stop Time 14:33 Visit Number 19 Number of BIG DATA HADOOP DEVELOPER Visits 0 Progress Note Due 12/23/24 OP-PT Subjective Patient Comments Patient Comments Pt reports he had no increased pain after last session and R shoulder is not back to normal but has improved since recent re-injury Therapeutic Exercises Supine Exercises Pec Stretch Supine Exercise Name Passive B pec stretch on full foam roller, added to HEP verbally Side bilateral Reps/Minutes 3 mins Comments increased release of pecs to lower BUEs closer to floor Prone Exercises I's,T's,Y's Prone Exercise Name I's, T's, Y's, W's Side right Reps/Minutes x10 each Comments monitored for pain, discomfort in shoulder on Y and T Sitting Exercises Lat stretch Sitting Exercise against wall Name Side bilateral Reps/Minutes 1 min each side Comments without pain, added to HEP verbally post capsule stretch Sitting Exercise horizontal adduction Name Side bilateral Reps/Minutes 30s each side Comments without pain, added to HEP verbally Standing Exercises Scaption Standing Exercise verbally upgraded from against gravity to L1 TB for HEP Name Side right Resistance L1 TB Comments VC for pain free range only Shoulder ER Standing Exercise verbally upgraded from against gravity to L1 TB for HEP Name Side right Resistance L1 TB Comments VC for pain free range only Manual Therapy Treatment Consent Patient gave verbal Yes consent for manual treatment Soft Tissue Mobilization Rhomboid Body Location trigger point along medial border of R scapula Mobilization Type Cross-Friction,Sustained Pressure,Trigger Point Release Intensity/Depth Deep Body Position Sidelying Comments with active RUE movement lat Body Location R Mobilization Type Cross-Friction,Rolling Intensity/Depth Deep Body Position Sidelying Comments stretching to lat insertion, with active RUE movement Joint Mobilizations GH Joint B Direction post with distraction, distraction at multiple angles Grade III Body Position Supine Reps/Duration 10x3 Comments improved positioning of R humeral head Physical Therapy Assessment Goals 2 Impairment Strength Short Term Goal (STG Pt will demonstrate improved R shoulder ER strength ) from 4 to 4+ MMT without pain to improve function STG Duration 6 weeks Status: MET 7/3 Financial Reporting Specialist Goal (LTG) Pt will demonstrate improved B shoulder strength to 5/5 pain free MMT to improve function and return to sport 8: Progressing, met in all but IR and flex 4+/5 pain free LTG Duration 12 weeks 1 Impairment ROM Short Term Goal (STG Pt will demonstrate active R shoulder flex to 150 ) degrees without pain to improve function. STG Duration 6 weeks Status: MET 155 degrees 7/3 Financial Reporting Specialist Goal (LTG) Pt will demonstrate active R shoulder flex to 160 degrees without pain to improve function. 8: Progressing, 152 degrees without pain. Adjusted AROM goal to 160 as this range is still functional but more realistic goal d/t pt's muscular body type. LTG Duration 12 weeks Assessment Summary Assessment Pt with slight pain during prone RUE I's,T's,Y's,W's and found to have significant tightness to B post capsule and B pecs, tolerated mobs and stretches well. STM to R lat, added post capsule stretch and lat stretch to HEP. HEP R ER and scaption upgraded to L1 TB and instructed to perform in pain free range only. Pt is making small progressions back to level prior to injury. Improved pain to R shoulder after stretching this session. Physical Therapy Plan Frequency and Duration Frequency of 2x/Week Treatment Duration of 12 treatment (weeks) Plan of Care Start 09/21/24 Date Plan of Care End 12/14/24 Date Therapeutic Interventions Therapeutic Home Exercise Program,Joint Mobilizations,Manual Interventions Therapy,Neuromuscular Re-education,Soft Tissue Mobilization,Taping,Therapeutic Activities,Therapeutic Exercises Modalities Cold Pack/Ice Massage,Hot Packs,Ultrasound Next Visit Focus/Plan Next Note Type Treatment Note Next Visit Plan manual: GH post capsule mob, progress resistance to R ER and scaption as tolerated, PPT against wall, pall of press
--- NOTE | 2024-12-09 19:47 | PT.OTN ---
Current Diagnoses Pain in left shoulder (12/09/24) Physical Therapy Treatment Note PT OP: Cervical/Upper Extremity Start: 11/23/24 13:50 Freq: Status: Active Protocol: Document 12/09/24 08:22 DIAMOND SAWER (Rec: 12/09/24 09:08 DIAMOND SAWER Laptop) Out-Patient Physical Therapy Visit Information Visit Information Visit Type Treatment Note Visit Start Time 08:20 Visit Stop Time 09:04 Visit Number 20 Number of FOREST MANAGER Visits 0 Progress Note Due 12/23/24 OP-PT Subjective Patient Comments Patient Comments Pt reports shoulders are still feeling good, tolerated ER and scaption with L1 band on R shoulder without pain , L shoulder feels tight today. Therapeutic Exercises Supine Exercises Shoulder ER/IR Supine Exercise Name IR/ER at shoulder 45 degrees and 90 degrees, VC for scap retract/depress Side right Resistance none Equipment Used towel roll under elbow Reps/Minutes 10x2 each level Comments min ant trans of humerus at 45 or 90, min click ER at 90 improved w/ form Standing Exercises Scaption Standing Exercise verbally upgraded from against gravity to L2 TB for HEP Name Side right Resistance L1 TB Comments VC for pain free range only Shoulder ER Standing Exercise verbally upgraded from against gravity to L2 TB for HEP Name Side right Resistance L1 TB Comments VC for pain free range only Manual Therapy Treatment Consent Patient gave verbal Yes consent for manual treatment Soft Tissue Mobilization Rhomboid Body Location medial border of B scapula Mobilization Type Cross-Friction Intensity/Depth Deep Body Position Sidelying Comments with active RUE movement over folcrum of fingers UT,levator scap Body Location B levator scap and upper trap Mobilization Type Cross-Friction,Sustained Pressure,Trigger Point Release Intensity/Depth Deep Body Position Sidelying Comments minimal trigger points, L>R Joint Mobilizations GH Joint B Direction post with distraction, distraction at multiple angles Grade III Body Position Supine Reps/Duration 10x3 Comments improved positioning of R humeral head Physical Therapy Assessment Goals 2 Impairment Strength Short Term Goal (STG Pt will demonstrate improved R shoulder ER strength ) from 4 to 4+ MMT without pain to improve function STG Duration 6 weeks Status: MET 7/3 Snf Goal (LTG) Pt will demonstrate improved B shoulder strength to 5/5 pain free MMT to improve function and return to sport 11/23: Progressing, met in all but IR and flex 4+/5 pain free LTG Duration 12 weeks 1 Impairment ROM Short Term Goal (STG Pt will demonstrate active R shoulder flex to 150 ) degrees without pain to improve function. STG Duration 6 weeks Status: MET 155 degrees 10/21 Freight Adjuster Goal (LTG) Pt will demonstrate active R shoulder flex to 160 degrees without pain to improve function. 11/23: Progressing, 152 degrees without pain. Adjusted AROM goal to 160 as this range is still functional but more realistic goal d/t pt's muscular body type. LTG Duration 12 weeks Assessment Summary Assessment Pt with increased tightness to L shoulder this session and time spent with STM, improved tightness to R shoulder muscles. B GH positioning is improving with IR /ER after post GH mobs, however pt is still feeling painless clicking in R shoulder with ER at 90 degrees, improved but not resolved with scapular positioning. Progressed RUE HEP of ER and scaption to L2 TB and reminded of pain free ROM only, progressed LUE HEP to L4 TB. Physical Therapy Plan Frequency and Duration Frequency of 2x/Week Treatment Duration of 16 treatment (weeks) Plan of Care Start 09/21/24 Date Plan of Care End 01/06/25 Date Therapeutic Interventions Therapeutic Home Exercise Program,Joint Mobilizations,Manual Interventions Therapy,Neuromuscular Re-education,Soft Tissue Mobilization,Taping,Therapeutic Activities,Therapeutic Exercises Modalities Cold Pack/Ice Massage,Hot Packs,Ultrasound Next Visit Focus/Plan Next Note Type Treatment Note Next Visit Plan manual: GH post capsule mob, progress resistance to R ER and scaption as tolerated, PPT against wall, pall of press
--- NOTE | 2024-12-30 16:58 | PT.OPDS ---
Pt's last session on 12/09 with no future sessions scheduled. Called pt to follow up, pt is unable to return to PT d/t pt declining to cover last few sessions and is currently working on remedying that. Pt's POC will 01/06, PT and pt agreed to D/C with PT informing pt to return in future with new doctor's referral if shoulder problems persist and insurance authorizes. D/C PT. Current Diagnoses Pain in left shoulder (12/09/24) Visit Care Team Role Provider Type Freddy Greenberg MD Attending Provider Physician Family Provider Primary Care Provider Referring Provider Specialty: Internal Medicine Address: [address] [place] [address], [address], [facility] Email: [email or web address] Visit Number Visit Number 20 Discharge Summary PT OP: Cervical/Upper Extremity Start: 11/23/24 13:50 Freq: Status: Active Protocol: Document 12/09/24 08:22 BUSINESS MANAGER COLLEGE [employer] UNIVERSITY (Rec: 12/09/24 09:08 BUSINESS MANAGER [employer]IVERSITY Laptop) Out-Patient Physical Therapy Visit Information Visit Information Visit Type Treatment Note Visit Start Time 08:20 Visit Stop Time 09:04 Visit Number 20 Number of PEST CONTROL WORKER HELPER Visits 0 Progress Note Due 12/23/24 OP-PT Subjective Patient Comments Patient Comments Pt reports shoulders are still feeling good, tolerated ER and scaption with L1 band on R shoulder without pain , L shoulder feels tight today. Therapeutic Exercises Supine Exercises Shoulder ER/IR Supine Exercise Name IR/ER at shoulder 45 degrees and 90 degrees, VC for scap retract/depress Side right Resistance none Equipment Used towel roll under elbow Reps/Minutes 10x2 each level Comments min ant trans of humerus at 45 or 90, min click ER at 90 improved w/ form Standing Exercises Scaption Standing Exercise verbally upgraded from against gravity to L2 TB for HEP Name Side right Resistance L1 TB Comments VC for pain free range only Shoulder ER Standing Exercise verbally upgraded from against gravity to L2 TB for HEP Name Side right Resistance L1 TB Comments VC for pain free range only Manual Therapy Treatment Consent Patient gave verbal Yes consent for manual treatment Soft Tissue Mobilization Rhomboid Body Location medial border of B scapula Mobilization Type Cross-Friction Intensity/Depth Deep Body Position Sidelying Comments with active RUE movement over folcrum of fingers UT,levator scap Body Location B levator scap and upper trap Mobilization Type Cross-Friction,Sustained Pressure,Trigger Point Release Intensity/Depth Deep Body Position Sidelying Comments minimal trigger points, L>R Joint Mobilizations GH Joint B Direction post with distraction, distraction at multiple angles Grade III Body Position Supine Reps/Duration 10x3 Comments improved positioning of R humeral head Physical Therapy Assessment Goals 2 Impairment Strength Short Term Goal (STG Pt will demonstrate improved R shoulder ER strength ) from 4 to 4+ MMT without pain to improve function STG Duration 6 weeks Status: MET 7/3 Marble Setter Goal (LTG) Pt will demonstrate improved B shoulder strength to 5/5 pain free MMT to improve function and return to sport 8: Progressing, met in all but IR and flex 4+/5 pain free LTG Duration 12 weeks 1 Impairment ROM Short Term Goal (STG Pt will demonstrate active R shoulder flex to 150 ) degrees without pain to improve function. STG Duration 6 weeks Status: MET 155 degrees 7/3 Prison Goal (LTG) Pt will demonstrate active R shoulder flex to 160 degrees without pain to improve function. 11/23: Progressing, 152 degrees without pain. Adjusted AROM goal to 160 as this range is still functional but more realistic goal d/t pt's muscular body type. LTG Duration 12 weeks Assessment Summary Assessment Pt with increased tightness to L shoulder this session and time spent with STM, improved tightness to R shoulder muscles. B GH positioning is improving with IR /ER after post GH mobs, however pt is still feeling painless clicking in R shoulder with ER at 90 degrees, improved but not resolved with scapular positioning. Progressed RUE HEP of ER and scaption to L2 TB and reminded of pain free ROM only, progressed LUE HEP to L4 TB. Physical Therapy Plan Frequency and Duration Frequency of 2x/Week Treatment Duration of 16 treatment (weeks) Plan of Care Start 09/21/24 Date Plan of Care End 01/06/25 Date Therapeutic Interventions Therapeutic Home Exercise Program,Joint Mobilizations,Manual Interventions Therapy,Neuromuscular Re-education,Soft Tissue Mobilization,Taping,Therapeutic Activities,Therapeutic Exercises Modalities Cold Pack/Ice Massage,Hot Packs,Ultrasound Next Visit Focus/Plan Next Note Type Treatment Note Next Visit Plan manual: GH post capsule mob, progress resistance to R ER and scaption as tolerated, PPT against wall, pall of press
== END 2025-01-04 08:53 | disposition home or self-care (01) ==
LOC: PHYS 08:15
PROVIDERS: Family Provider Internal Medicine; PCP Internal Medicine; Referring Provider Internal Medicine; Visit Provider Internal Medicine
DX: M25.512 Pain in left shoulder (principal)
CPT/HCPCS: 97110; 97140; 97162; 97530; 97535

== ENCOUNTER 2025-03-22 12:25 | Emergency (ER) | payer OTHER, SELFPAY ==
[2025-03-22 12:33] VITALS: BP 130/76; PULSE 86; RESP 18; TEMP 37.1; O2SAT 99; BMI 30.7
--- NOTE | 2025-03-22 12:36 | DI.CT.S_ITS ---
PROCEDURE: CT HEAD/BRAIN WO CON INDICATIONS: head injury TECHNIQUE: Noncontrast 4.5 mm thick angled axial sections acquired from the foramen magnum to the vertex, with coronal and sagittal reformats. For radiation dose reduction, the following was used: automated exposure control, adjustment of mA and/or kV according to patient size. COMPARISON: [facility], CT, CT CERVICAL SPINE WO CON, 03/22/2025, 12:37. FINDINGS: Image quality: Diagnostic. CSF spaces: Basal cisterns are patent. No extra-axial fluid collections. Ventricles are normal in size and shape. Brain: No midline shift. No intracranial mass effect or hemorrhage. More- white matter interface is normal. Skull and face: Calvarium and visualized facial bones are intact, without suspicious lesions. Sinuses: Visualized sinuses and mastoids are clear. IMPRESSION: No acute intracranial pathology. Dictated by: Sabina Garnett M.D. on 03/22/2025 at 13:07 Approved by: Sabina Garnett M.D. on 03/22/2025 at 13:08
--- NOTE | 2025-03-22 12:36 | DI.CT.S_ITS ---
PROCEDURE: CT CERVICAL SPINE WO CON INDICATIONS: head injury TECHNIQUE: Noncontrast 3 mm thick sections acquired from the skull base to the T4 level. Sagittal and coronal reformats were then constructed. For radiation dose reduction, the following was used: automated exposure control, adjustment of mA and/or kV according to patient size. COMPARISON: None. FINDINGS: Image quality: Excellent. Bones: No fractures or dislocations. Visualized superior ribs are intact. Multilevel degenerative changes. Soft tissues: Prevertebral soft tissues are normal in thickness. No paravertebral hematomas. No apical pneumothoraces. IMPRESSION: No displaced fracture or traumatic subluxation. Dictated by: Sabina Garnett M.D. on 03/22/2025 at 13:04 Approved by: Sabina Garnett M.D. on 03/22/2025 at 13:07
--- NOTE | 2025-03-22 15:33 | ED.HEATRA ---
HPI - Head Injury <Alana Hollingsworth PA-C - Last Filed: 03/22/25 16:17> General Chief complaint: Trauma Stated complaint: Head injury Time Seen by Provider: 03/22/25 12:36 Source: patient Mode of arrival: Family Vehicle History of Present Illness HPI Narrative: 54-year-old male on Pradaxa for DVTs presents to the ED following a head injury sustained yesterday afternoon. Patient states that a log of would fell on the top of his head yesterday at 2:30 p.m.. No loss of consciousness. Patient states he felt fine after, however today he felt a mild headache and neck pain. He presents to the ED since he is concerned that he is on Pradaxa. No fever, chills, chest pain, shortness of breath, lightheadedness, dizziness, syncope. Related Data Previous Rx's ?Medication ?Instructions ?Recorded sildenafil (pulm.hypertension) 20 20 - 100 mg (1 - 5 x 20 mg) PO 03/02/24 mg tablet DAILY PRN sexual activity #90 tabs fenofibrate 54 mg tablet 54 mg PO DAILY #90 tabs 05/31/24 doxycycline hyclate 50 mg capsule 50 mg PO DAILY #90 caps 10/20/24 bupropion HCl 150 mg tablet,12 hr 150 mg PO DAILY #90 ea 11/26/24 sustained-release dabigatran etexilate 150 mg capsule 150 mg PO BID #180 caps 11/26/24 Allergies Allergy/AdvReac Type Severity Reaction Status Date / Time ampicillin (AMPICILLIN) Allergy Mild Hives Verified 03/22/25 12:33 Penicillins (PENICILLINS) Allergy Mild Hives Verified 03/22/25 12:33 Review of Systems <Alana Hollingsworth PA-C - Last Filed: 03/22/25 16:17> Constitutional Constitutional: Denies chills, Denies fatigue, Denies fever(s), Denies frequent falls, Reports headache(s), Denies lethargy and Denies weakness Eyes Eyes: Denies change in vision, Denies eye discharge, Denies irritation and Denies loss of vision ENT Ears, Nose, Mouth, and Throat: Denies change in voice, Denies dizziness, Reports headache(s), Reports neck pain, Denies sore throat and Denies throat swelling Cardiovascular Cardiovascular: Denies chest pain, Denies irregular heart rhythm, Denies lightheadedness, Denies palpitations, Denies dyspnea, Denies dyspnea on exertion and Denies orthopnea Respiratory Respiratory: Denies cough, Denies dyspnea, Denies dyspnea on exertion and Denies wheezing Gastrointestinal Gastrointestinal: Denies abdominal pain, Denies change in bowel habits, Denies diarrhea, Denies nausea and Denies vomiting Musculoskeletal Musculoskeletal: Reports neck pain and Denies numbness Integumentary/Breasts Skin/Breast: Denies pruritus, Denies erythema, Denies rash and Denies wounds Neurologic Neurologic: Denies behavioral changes, Denies confusion, Denies dizziness, Denies frequent falls, Reports headache(s), Denies loss of vision, Denies numbness and Denies weakness Psychiatric Psychiatric: Denies anxiety, Denies behavioral changes, Denies confusion, Denies depression, Denies homicidal ideation and Denies suicidal ideation Endocrine Endocrine: Denies fatigue, Denies flushing and Denies palpitations Hematologic/Lymphatic Hematologic/Lymphatic: Denies easy bruising Allergic/Immunologic Allergic/Immunologic: Denies urticaria, Denies throat swelling and Denies wheezing Patient History <Alana Hollingsworth PA-C - Last Filed: 03/22/25 16:17> Medical History (Updated 03/22/25 @ 13:18 by Alana Hollingsworth PA-C) Current use of computer terminal operator anticoagulation History of adenomatous polyp of colon Pulmonary embolism (~11/28/22) Left leg DVT Testicular cancer (~1988) Rosacea (~2011) Mumps (~1974) Chicken pox (~1974) Low testosterone Pulmonary embolism (~1988) Surgical History (Updated 08/17/24 @ 10:52 by Freddy Greenberg MD) [place] teeth removed (02/20/24) Anesthesia History of surgery (~1988) History of orchiectomy (~1988) History of vasectomy (~2014) Family History Father Age: 82 Mental health problem Mother Age: 81 Hypertension Mental health problem Social History household members: spouse Smoking Status: Former smoker Smoking Status: Former smoker tobacco type: cigarettes alcohol intake frequency: a few times a month Exam <Alana Hollingsworth PA-C - Last Filed: 03/22/25 16:17> Narrative Exam Narrative: Const General:?cooperative, healthy appearing and comfortable [facility] Head:?normal to inspection; no hematoma; mild tenderness to palpation; skin intact. Ears:?hearing grossly normal bilaterally Nose:?external nose normal Face and sinus:?normal facial exam and sinuses nontender Mouth:?oral mucosae normal Throat:?posterior oropharynx normal Eyes General:?appearance normal, both eyes and all related structures Neck Neck:?normal visual inspection and no lymphadenopathy noted Resp Effort & Inspection:?normal respiratory effort Auscultation:?clear to auscultation bilaterally Cardio Rate:?regular rate Rhythm:?regular rhythm Neuro General:?patient alert, patient awake and patient oriented x3 Initial Vital Signs Initial Vital Signs: Vital Signs Temperature 98.7 F 03/22/25 12:33 Pulse Rate 86 03/22/25 12:33 Respiratory Rate 18 03/22/25 12:33 Blood Pressure 130/76 03/22/25 12:33 Pulse Oximetry 99 03/22/25 12:33 Oxygen Delivery Method Room Air 03/22/25 12:33 <Akash Cline MD - Last Filed: 03/28/25 08:59> Initial Vital Signs Initial Vital Signs: Vital Signs Temperature 98.7 F 03/22/25 12:33 Pulse Rate 86 03/22/25 12:33 Respiratory Rate 18 03/22/25 12:33 Blood Pressure 130/76 03/22/25 12:33 Pulse Oximetry 99 03/22/25 12:33 Oxygen Delivery Method Room Air 03/22/25 12:33 Course <Alana Hollingsworth PA-C - Last Filed: 03/22/25 16:17> Orders Ordered: ED Orders 03/22/25 12:36 CT cervical spine wo con Stat CT head/brain wo con Stat Vital Signs Vital signs: Vital Signs - 8 hr 03/22/25 12:33 Temperature 98.7 F Pulse Rate 86 Respiratory Rate 18 Blood Pressure 130/76 Pulse Oximetry 99 Oxygen Delivery Method Room Air <Akash Cline MD - Last Filed: 03/28/25 08:59> Orders Ordered: ED Orders 03/22/25 12:36 CT cervical spine wo con Stat CT head/brain wo con Stat Vital Signs Vital signs: Vital Signs - 8 hr 03/22/25 12:33 Temperature 98.7 F Pulse Rate 86 Respiratory Rate 18 Blood Pressure 130/76 Pulse Oximetry 99 Oxygen Delivery Method Room Air MDM - Head Injury <Alana Hollingsworth PA-C - Last Filed: 03/22/25 16:17> [facility] Narrative Medical decision making narrative: 54-year-old male on Pradaxa for DVTs presents to the ED following a head injury sustained yesterday afternoon. CT head and CT C-spine ordered to rule out bony/intracranial injuries. CT head with no acute intracranial pathology. CT C-spine with no displaced fracture or traumatic subluxation. Discussed findings with patient. Counseled on possible concussion symptoms, treatment. Counseled on physical and cognitive rest. Recommend follow-up with PCP as soon as possible. Recommend taking Tylenol for discomfort. ED return precautions were discussed with patient. Patient verbalized understanding. Medical records reviewed: Yes Discharge Plan Departure Patient Disposition: Home Clinical Impression: Head injury Qualifiers: Encounter type: initial encounter Qualified Code(s): S09.90XA - Unspecified injury of head, initial encounter Instructions: DI for Closed Head Injury Activity Restrictions/Additional Instructions: You were evaluated in the emergency room today for a head injury. The CT scans of your head and neck were normal. It is possible that your just experiencing some after effects of the injury versus a concussion. Common symptoms of a concussion are headache, nausea, sporadic vomiting, excessive sleepiness, fogginess, depression, agitation. You may experience any your all of these symptoms and the duration varies depending on the extent of your injuries. It is advised that you practice physical and cognitive rest for the speedy recovery. Cognitive rest refers to abstaining from phones, screens, books. You may take Tylenol for headaches. Please follow-up with your PCP for further evaluation and to monitor your symptoms to resolution. Return to the ED if you have worsening symptoms, worsening headache, incessant vomiting. Prescriptions: No Action sildenafil (pulm.hypertension) 20 mg tablet 20 - 100 mg PO DAILY PRN (Reason: sexual activity) Qty: 90 3RF Rx Instructions: Take 30 minutes prior to sexual activity. fenofibrate 54 mg tablet 54 mg PO DAILY Qty: 90 3RF doxycycline hyclate 50 mg capsule 50 mg PO DAILY Qty: 90 0RF dabigatran etexilate 150 mg capsule 150 mg PO BID Qty: 180 3RF bupropion HCl 150 mg tablet sustained-release 12 hr 150 mg PO DAILY Qty: 90 3RF Referrals: Freddy Greenberg MD [Primary Care Provider, Internal Medicine] Stand Alone Forms: Patient Portal/API, Work Release Note ED Sign-out <Akash Cline MD - Last Filed: 03/28/25 08:59> Cosign ED Attending Cosignature Attestation: I was immediately available in the department for consultation. ?This documentation has been reviewed and I agree with assessment and plan. Supervised by Akash Cline MD
== END 2025-03-22 13:29 | disposition home or self-care (01) ==
PROVIDERS: Emergency Provider Student in an Organized Health Care Education/Training Program; Family Provider Internal Medicine; PCP Internal Medicine
DX: S09.90XA Unspecified injury of head, initial encounter (principal); M54.2 Cervicalgia; W20.8XXA Other cause of strike by thrown, projected or falling object, initial encounter; Z86.718 Personal history of other venous thrombosis and embolism; Z79.01 Long term (current) use of anticoagulants
CPT/HCPCS: 70450; 72125; 99283; 99284